=== PATIENT | female | born 1985 | race Caucasian/White ===

== ENCOUNTER 2022-10-20 07:26 | Outpatient (OUT) | payer OTHER, SELFPAY ==
--- NOTE | 2022-10-20 07:29 | XR_ITS ---
[facility] [place] [id number] Patient Name: LOUIS RIDER MRN: [id number] date: 1985 Sex: F Assigned Patient Location: [facility] Current Patient Location: [facility] Accession/Order Number: [id number] Exam Date: 10/20/2022 07:35 Report Date: 10/20/2022 07:54 At the request of: REBEL MURPHY Procedure: XR lumbar spine 2-3V EXAMINATION: XR lumbar spine 2-3V HISTORY: Lumbar Back Pain M54.50 COMPARISON: No relevant comparison available. FINDINGS: BONES: Normal alignment with no acute fracture or spondylolisthesis. Minimal degenerative spondylosis DISC SPACES: Normal. No significant disc height narrowing, subluxation, or endplate abnormality. PARASPINOUS: Negative. No paraspinous abnormality is seen. OTHER: Negative. XR/XR lumbar spine 2-3V IMPRESSION: Minimal degenerative changes Electronically authenticated by: DEVON KNIGHT Date: 10/20/2022 07:54
== END 2022-10-20 07:27 | disposition home or self-care (01) ==
LOC: RAD 07:26
PROVIDERS: PCP Nurse Practitioner; Visit Provider Nurse Practitioner
DX: M54.50 Low back pain, unspecified (principal); M47.816 Spondylosis without myelopathy or radiculopathy, lumbar region
CPT/HCPCS: 72100

== ENCOUNTER 2023-08-27 06:33 | Outpatient (OUT) | payer OTHER, SELFPAY ==
[2023-08-27 07:03] LABS: Bilirubin Urine NEGATIVE (NEGATIVE); Blood Urine LARGE (NEGATIVE); Clarity Urine CLEAR (CLEAR); Color Urine YELLOW (YELLOW); Glucose Urine UA NEGATIVE (NEGATIVE); Ketones Urine NEGATIVE (NEGATIVE); Leukocyte Esterase Urine NEGATIVE (NEGATIVE); Nitrite Urine NEGATIVE (NEGATIVE); Protein Urine NEGATIVE (NEG/TRACE); Urobilinogen Urine 0.2 EU/dL (0.2-1.0)
[2023-08-27 07:04] LABS: Basophils Absolute Auto 0.1 10^3/uL (0.0-0.1); Basophils Percent Auto 0.8 % (0.2-2.0); Eosinophils Absolute Auto 0.2 10^3/uL (0.0-0.7); Eosinophils Percent Auto 2.5 % (0.9-7.0); Hematocrit 41.4 % (36.0-48.0); Hemoglobin 13.5 g/dL (12.0-16.0); Immature Granulocytes Abs Auto 0.01 10^3/uL (0.00-0.03); Immature Granulocytes Pct Auto 0.2 % (0.0-0.5); Lymphocytes Absolute Auto 1.8 10^3/uL (1.2-3.8); Lymphocytes Percent Auto 27.7 % (20.5-60.0); Mean Corpuscular HGB Conc 32.6 g/dL (29.9-35.2); Mean Corpuscular Hemoglobin 30.8 pg (26.7-34.0); Mean Corpuscular Volume 94.3 fL (81.0-99.0); Mean Platelet Volume 8.8 fL (9.5-13.5); Monocytes Absolute Auto 0.6 10^3/uL (0.3-0.8); Monocytes Percent Auto 9.2 % (1.7-12.0); Neutrophils Absolute Auto 3.9 10^3/uL (1.4-6.5); Neutrophils Percent Auto 59.6 % (43.0-75.0); Platelet Count 347 10^3/uL (150-450); Red Blood Count 4.39 10^6/uL (4.20-5.40); Red Cell Distribution Width 12.4 % (11.0-15.0); White Blood Count 6.5 10^3/uL (4.0-11.0)
[2023-08-27 07:13] LABS: WBC Urine NONE SEEN #/HPF (NONE SEEN)
[2023-08-27 07:14] LABS: Bacteria Urine TRACE #/HPF (NONE SEEN); Cast Seen? NONE SEEN #/LPF (NONE SEEN); Crystals Seen? None Seen #/HPF (None Seen); Mucus Urine NONE SEEN (NONE SEEN); Squamous Epithelial Cell Urine FEW #/LPF (NONE/RARE)
[2023-08-27 07:26] LABS: Alanine Aminotransferase 17 U/L (14-59); Albumin Level 3.8 g/dL (3.4-5.0); Alkaline Phosphatase 70 U/L (46-116); Aspartate Amino Transferase 11 U/L (15-37); BUN Creatinine Ratio 16.3; Bilirubin Total 0.6 mg/dL (0.2-1.0); Calcium 8.5 mg/dL (8.5-10.1); Carbon Dioxide 25.6 mmol/L (21.0-32.0); Chloride 101 mmol/L (98-107); Chol HDL Ratio 3.1; Cholesterol 220 mg/dL (<=200); Estimated GFR (African America >60 (>=60); Estimated GFR (Non-African Ame >60 (>=60); Globulin 3.9 g/dL; Glucose 102 mg/dL (74-106); HDL Cholesterol 72 mg/dL (40-60); Potassium 3.6 mmol/L (3.5-5.1); Sodium 137 mmol/L (136-145); Thyroid Stimulating Hormone 1.537 uIU/mL (0.358-3.740); Total Protein 7.7 g/dL (6.4-8.2); Triglycerides 59 mg/dL (<=150); VLDL CHOLESTEROL 11.8 mg/dL
== END 2023-08-27 06:34 | disposition home or self-care (01) ==
LOC: LAB 06:35
PROVIDERS: PCP Nurse Practitioner; Visit Provider Nurse Practitioner
DX: Z78.9 Other specified health status (principal)
CPT/HCPCS: 36415; 80053; 80061; 81001; 84443; 85025

== ENCOUNTER 2023-09-13 06:39 | Outpatient (OUT) | payer OTHER, SELFPAY ==
[2023-09-13 06:59] LABS: Bilirubin Urine NEGATIVE (NEGATIVE); Blood Urine MODERATE (NEGATIVE); Clarity Urine CLEAR (CLEAR); Color Urine LT. YELLOW (YELLOW); Glucose Urine UA NEGATIVE (NEGATIVE); Ketones Urine NEGATIVE (NEGATIVE); Leukocyte Esterase Urine NEGATIVE (NEGATIVE); Nitrite Urine NEGATIVE (NEGATIVE); Protein Urine NEGATIVE (NEG/TRACE); Specific Gravity Urine 1.015 (1.005-1.025); Urobilinogen Urine 0.2 EU/dL (0.2-1.0)
[2023-09-13 07:23] LABS: Bacteria Urine MODERATE #/HPF (NONE SEEN); WBC Urine 0-2 #/HPF (NONE SEEN)
[2023-09-13 07:24] LABS: Mucus Urine SMALL (NONE SEEN); Squamous Epithelial Cell Urine FEW #/LPF (NONE/RARE); Urine Culture Indicated ALREADY ORDERED
== END 2023-09-13 06:40 | disposition home or self-care (01) ==
LOC: LAB 06:39
PROVIDERS: PCP Nurse Practitioner; Visit Provider Nurse Practitioner
DX: R31.29 Other microscopic hematuria (principal)
CPT/HCPCS: 81001; 87086; 87150; 87186

== ENCOUNTER 2023-10-04 06:33 | Outpatient (OUT) | payer OTHER, SELFPAY ==
[2023-10-04 06:43] LABS: Bilirubin Urine NEGATIVE (NEGATIVE); Blood Urine MODERATE (NEGATIVE); Clarity Urine CLEAR (CLEAR); Color Urine YELLOW (YELLOW); Glucose Urine UA NEGATIVE (NEGATIVE); Ketones Urine NEGATIVE (NEGATIVE); Leukocyte Esterase Urine NEGATIVE (NEGATIVE); Nitrite Urine NEGATIVE (NEGATIVE); Protein Urine NEGATIVE (NEG/TRACE); Specific Gravity Urine 1.025 (1.005-1.025); Urobilinogen Urine 0.2 EU/dL (0.2-1.0)
[2023-10-04 06:50] LABS: Urine Microscopic Indicated YES
[2023-10-04 06:55] LABS: Bacteria Urine TRACE #/HPF (NONE SEEN); Cast Seen? NONE SEEN #/LPF (NONE SEEN); Crystals Seen? None Seen #/HPF (None Seen); Mucus Urine TRACE (NONE SEEN); Squamous Epithelial Cell Urine FEW #/LPF (NONE/RARE); Urine Culture Indicated ALREADY ORDERED; WBC Urine 0-2 #/HPF (NONE SEEN)
== END 2023-10-04 06:34 | disposition home or self-care (01) ==
LOC: LAB 06:33
PROVIDERS: PCP Nurse Practitioner; Visit Provider Nurse Practitioner
DX: N30.00 Acute cystitis without hematuria (principal)
CPT/HCPCS: 81001; 87086; 87150; 87186

== ENCOUNTER 2023-10-21 08:10 | Outpatient (OUT) | payer OTHER, SELFPAY ==
--- OUTSIDE RECORDS SUMMARY | 2023-10-21 08:14 | XMS_ITS | CCD ---
Author Organization [facility] Care Team Providers Care Teaching Artist Name Role Phone DR NEFTALI WILSON Admitting Unavailable MARII, NUSRAT LUQUE Primary Care Unavailable DR NEFTALI WILSON Attending Unavailable Dana Wilson Unavailable Marii VICE PRESIDENT OF CONTRACTS, Keily Unavailable Landry Antoine MD Primary Care Provider KEILY COLVIN Attending Unavailable KEILY COLVIN Attending Unavailable DIANE PAGE Attending Unavailable KEILY COLVIN Referring Unavailable KEILY COLVIN Attending Unavailable Medications Current Medications Medication Drug Class(es) Dates Sig (Normalized) Sig (Original) amoxicillin 875 mg / clavulanate 125 mg oral tablet (2 sources) Penicillin-class Antibacterial Start: 05-09-2023 End: 05-19-2023 take 1 tablet by mouth in the morning amoxicillin-clav ulanate (Augmentin) 875-125 MG tablet Indications: URI, acute Take 1 tablet (875 mg) by mouth in the morning and 1 tablet (875 mg) before bedtime. Do all this for 10 days. Take with food. 20 tablet 0 05/09/2023 05/19/2023 Active benzonatate 200 mg oral capsule (2 sources) Non-narcotic Antitussive Start: 05-09-2023 End: 05-16-2023 take 1 capsule by mouth three times daily as needed for cough benzonatate (Tessalon) 200 MG capsule Indications: URI, acute Take 1 capsule (200 mg) by mouth 3 (three) times a day as needed for cough for up to 7 days Take with full glass of water. Do not crush or chew. 21 capsule 0 05/09/2023 05/16/2023 Active brompheniramine maleate 0.4 mg/ml / dextromethorphan hydrobromide 2 mg/ml / pseudoephedrine hydrochloride 6 mg/ml oral solution (1 source) alpha-Adrenergic Agonist, Uncompetitive W-khahxd-Y-aspartat e Receptor Antagonist, Sigma-1 Agonist Start: 03-09-2022 take 10 mL by mouth every six hours Pseudoeph-Bromph en-DM 30-2-10 MG/5ML 10 mL Orally every 6 hours for 5 days Feb, Active ondansetron 4 mg disintegrating oral tablet (1 source) Serotonin-3 Receptor Antagonist Start: 03-09-2022 take 1 tablet by mouth every eight hours Ondansetron 4 MG 1 tablet on the tongue and allow to dissolve Orally every 8 hours for 5 days Feb, Active Completed/Discontinued Medications Medication Drug Class(es) Dates Sig (Normalized) Sig (Original) naproxen 500 mg oral tablet (3 sources) Nonsteroidal Anti-inflammatory Drug Start: 10-21-2022 End: 05-09-2023 naproxen (Naprosyn) 500 MG tablet Take 250 mg by mouth in the morning and 250 mg in the evening. Take with meals. 0 10/21/2022 05/09/2023 Discontinued (Therapy completed) tamsulosin hydrochloride 0.4 mg oral capsule (3 sources) alpha-Adrenergic Trina Start: 05-06-2022 End: 05-09-2023 take 1 capsule by mouth every twenty-four hours in the morning tamsulosin (Flomax) 0.4 MG 24 hr capsule Take 0.4 mg by mouth in the morning. 0 05/06/2022 05/09/2023 Discontinued (Therapy completed) tiZANidine 4 mg oral tablet (3 sources) Central alpha-2 Adrenergic Agonist Start: 03-22-2023 End: 05-09-2023 take 1 tablet by mouth once tiZANidine (Zanaflex) 4 MG tablet Indications: Spasm of muscle of lower back Take 1 tablet (4 mg) by mouth every 12 (twelve) hours if needed for muscle spasms for up to 10 days 20 tablet 0 03/22/2023 05/09/2023 Discontinued (Therapy completed) Problems Active Problems Problem Classification Problem Date Documented Date Episodic/Chronic Abdominal pain (4 sources) Unspecified abdominal pain; Translations: [UNSPECIFIED ABDOMINAL PAIN] Onset: 05-05-2022 Episodic Immunizations and screening for infectious disease (2 sources) Contact with and (suspected) exposure to other viral communicable diseases; Translations: [Contact with and (suspected) exposure to other viral communicable diseases] Episodic Influenza (1 source) Influenza due to other identified influenza virus with other respiratory manifestations Episodic Malaise and fatigue (1 source) Fatigue; Translations: [Other fatigue] Episodic Menstrual disorders (1 source) Disorder of menstruation; Translations: [Irregular menstruation, unspecified] Chronic Other endocrine disorders (1 source) Decreased cortisol level; Translations: [Unspecified adrenocortical insufficiency] Chronic Other screening for suspected conditions (not mental disorders or infectious disease) (1 source) Measurement finding above reference range; Translations: [Other specified abnormal findings of blood chemistry] Episodic Other upper respiratory infections (4 sources) Acute upper respiratory infection; Translations: [Acute upper respiratory infection, unspecified] Onset: 05-09-2023 05-09-2023 Episodic Residual codes; unclassified (1 source) Procedure and treatment not carried out due to patient leaving prior to being seen by health care provider; Translations: [PROC AND TX NOT CARRIED OUT PT LEAVE] Onset: 05-06-2022 Episodic Past or Other Problems Problem Classification Problem Date Documented Da te Episodic/Chronic Genitourinary symptoms and ill-defined conditions (2 sources) Microscopic hematuria; Translations: [Other microscopic hematuria] Onset: 09-26-2018 05-09-2023 Episodic Results Test Name Value Interpretation Reference Range Facil ity COVID/FLU/RSV RT-PCRon 03-09 SARS-CoV-2 (COVID-19) RNA WILBER+probe Ql (Unsp spec) Negative [facility] [employer] Other COVID/FLU/RSV RT-PCR Positive [facility] Other COVID/FLU/RSV RT-PCR Negative [facility] [employer] Other Vital Signs Date Time Vital Sign Value Performing Clinician Facility 05-09-2023 16:11-0500 Body height 162.6 cm Keily Colvin VICE PRESIDENT OF CONTRACTS Work Phone: [facility] 05-09-2023 16:11-0500 Body mass index (BMI) [Ratio] 26.78 kg/m2 Keily Beardhholz VICE PRESIDENT OF CONTRACTS Work Phone: [facility] 05-09-2023 16:11-0500 Body temperature 98.01 [degF] Keily Lorieholz VICE PRESIDENT OF CONTRACTS Work Phone: [facility] 05-09-2023 16:11-0500 Body weight 70.76 kg Keilylyudmila Meloholz VICE PRESIDENT OF CONTRACTS Work Phone: [facility] 05-09-2023 16:11-0500 Diastolic blood pressure 78 mm[Hg] Keily Lorieholz VICE PRESIDENT OF [employer]S Work Phone: [facility] 05-09-2023 16:11-0500 Heart rate 85 /min Keily Lorieholz VICE PRESIDENT OF [employer]S Work Phone: [facility] 05-09-2023 16:11-0500 Respiratory rate 17 /min Keily Lorieholz VICE PRESIDENT OF CONTRACTS Work Phone: [facility] 05-09-2023 16:11-0500 SaO2% (BldA) [Mass fraction] 100 % Keily Lorieholz VICE PRESIDENT OF CONTRACTS Work Phone: [facility] 05-09-2023 16:11-0500 Systolic blood pressure 118 mm[Hg] Keily Lorieholz VICE PRESIDENT OF CONTRACTS Work Phone: [facility] 03-09-2022 15:55-0500 Body height 162.56 cm Dana [employer] Other [employer] Other 03-09-2022 15:55-0500 Body mass index (BMI) [Ratio] 25.57 kg/m2 Dana [employer] Other [employer] Other 03-09-2022 15:55-0500 Body temperature 97.6 [degF] Dana Wilson Other [employer] Other 03-09-2022 15:55-0500 Body weight 67.59 kg Dana Wilson Other [employer] Other 03-09-2022 15:55-0500 Respiratory rate 18 /min Dana Wilson Other [employer] Other 03-09-2022 15:55-0500 SaO2% (BldA) [Mass fraction] 97 % Dana Wilson Other [employer] Other Encounters Encounter Date Encounter Type Care Provider Facility Start: 08-17-2023 End: 08-17-2023 ambulatory KEILY AICHHOLZ Not Available Start: 07-26-2023 End: 07-26-2023 ambulatory DIANE PAGE Not Available Start: 06-16-2023 End: 06-16-2023 ambulatory KEILY AICHHOLZ Not Available Start: 05-09-2023 End: 05-09-2023 ambulatory KEILY AICHHOLZ Not Available Start: 05-09-2023 End: 05-09-2023 Office outpatient visit 15 minutes Keily Colvin VICE PRESIDENT OF [employer]S Work Phone: [facility] Comment on above: URI, acute (Primary Dx) Start: 05-09-2023 Bamboo flowsheet Keily Colvin VICE PRESIDENT OF CONTRACTS Work Phone: [facility] Start: 05-09-2023 Bamboo flowsheet Keily Colvin VICE PRESIDENT OF [employer]S Work Phone: [facility] Start: 05-05-2022 End: 05-05-[address] NEFTALI WILSON Facility: Start: 03-09-2022 End: 03-09-2022 ambulatory Dana Wilson Other [employer] Other Start: 03-09-2022 Office outpatient ne w 30 minutes Dana Wilson [facility] Procedures Date Procedure Procedure Detail Performing Clinician Start: 05-09-2023 Microscopic observat ion [Identifier] in Cervix by Cyto stain Keily Colvin VICE PRESIDENT OF CONTRACTS Work Phone: Plan of Treatment Date Care Activity Detail Author Start: 05-09-2026 Screening for malign ant neoplasm of cervix [facility] Start: 05-09-2023 End: 05-09-2023 Patient encounter procedure 05/09/2023 4:00 PM EST Office Visit [facility] [address] [place] [address] Keily Colvin NP [address] [place] [address] Arrived [facility] Comment on above: Arrived Start: 11-26-2022 Influenza vaccination Influenza Vacc ine (#1) [facility] Start: 10-29-2013 Screening for malign ant neoplasm of cervix [facility] Start: 10-29-2004 Screening for malign ant neoplasm of cervix Pap Smear [facility] Immunizations Immunization Date Immunization Notes Care Provider Fa cility 01-28-2015 influenza, seasonal, injectable Dana Wilson Other [employer] Other 01-28-2015 influenza virus vaccine, unspecified formulation Keily Colvin VICE PRESIDENT OF CONTRACTS Work Phone: [facility] NEGATED: Highlighted row has not occurred!06-04-2015 pneumococcal polysaccharide vaccine, 23 valent Dana Wilson Other [employer] Other Payers Date Payer Category Payer Medicaid [employer] [place] [employer] [id number] 2020-Present [address] [place] [address] [id number] 1985 Unknown [id number] 1985 Unknown [id number] 1985 Unknown [id number] 1985 Unknown [id number] 1985 Unknown [id number] 1961 Unknown [id number] Social History Date Type Detail Facility Start: 05-09-2023 Sex Assigned At N [facility] Other Tobacco smoking status [facility] Tobacco smoking consumption unknown [facility] Start: 1985 Sex Assigned At Not on file [facility] Start: 05-09-2023 Tobacco smoking status [facility] Never smoked tobacco [facility] Start: 05-09-2023 Tobacco use and exposure Smokeless tobacco non-user [facility] Start: 05-09-2023 Alcohol intake Lifetime non-d yaneth (finding) [facility] Start: 05-09-2023 History of Social function [facility] Start: 05-09-2023 Alcohol Comment caffine: 1 can of soda daily [facility] History of Present illness Narrative 05-09-2023 Keily Colvin NP - 05/09/2023 4:50 PM OSCAR GUERIN - 05/09/2023 4:00 PM Elisabeth Colvin NP - 05/09/2023 4:00 PM EST Note Date & Type Note Facility 05-09-2023 History of Presen t illness Narrative Associated Problem(s): URI, acute Will treat with atb, tessalon Fluids, rest Fu if not better Bad cough started Tuesday- coughing up yellow mucus Had temp of 99.9 on Tuesday. No body aches, chills, no vomiting or nausea, and no diarrhea. Pt did not test for covid or the flu Stated she had covid after ketan. Left shoulder blade - pt stated that it looks like ring worm No sore, not itchy Pt is treating it with ring worm medication and is not helping Images from the original note were not included. Louis Rider is a 37 y.o. female presents with chief complaint of No chief complaint on file. HPI: Rash to left shoulder blade area, hx of eczema, tried using eczema cream no help, no itchy, wonder if this was ring worm Cough This is a new problem. The current episode started in the past 7 days. The problem has been gradually worsening. The cough is Productive of purulent sputum. Associated symptoms include chest pain (from coughing), ear pain (left ear), a fever, nasal congestion and a rash. Pertinent negatives include no chills, ear congestion, eye redness, headaches, myalgias, sore throat, shortness of breath or wheezing. Nothing aggravates the symptoms. She has tried OTC cough suppressant for the symptoms. The treatment provided no relief. There is no history of environmental allergies. SUBJECTIVE: MEDICATIONS: No current outpatient medications ALLERGIES: No Known Allergies REVIEW OF SYMPTOMS: Review of Systems Constitutional: Positive for fever. Negative for appetite change and chills. HENT: Positive for ear pain (left ear). Negative for congestion and sore throat. Eyes: Negative for pain, discharge, redness and visual disturbance. Respiratory: Positive for cough. Negative for shortness of breath and wheezing. Cardiovascular: Positive for chest pain (from coughing). Negative for palpitations and leg swelling. Gastrointestinal: Negative for abdominal pain, blood in stool, constipation, diarrhea, nausea and vomiting. Genitourinary: Negative for difficulty urinating, dysuria and frequency. Musculoskeletal: Negative for arthralgias, back pain, joint swelling and myalgias. Skin: Positive for rash. Negative for wound. Neurological: Negative for dizziness, tremors, seizures, syncope and headaches. Psychiatric/Behavioral: Negative for behavioral problems, self-injury and suicidal ideas. The patient is not nervous/anxious. Hematological: Does not bruise/bleed easily. Endocrine: Negative for polydipsia, polyphagia and polyuria. Allergic/Immunologic: Negative for environmental allergies and food allergies. PAST MEDICAL HISTORY History reviewed. No pertinent past medical history. Past Surgical History: Procedure Laterality Date TONSILECTOMY, ADENOIDECTOMY, BILATERAL MYRINGOTOMY AND TUBES family history is not on file. OBJECTIVE: Visit Vitals BP 118/78 (BP Location: Right arm, Patient Position: Sitting, BP Cuff Size: Large adult long) Pulse 85 Temp 98 F (Temporal) Resp 17 Ht 5' 4 Wt 156 lb SpO2 100% BMI 26.78 kg/m Smoking Status Never BSA 1.79 m Physical Exam Vitals reviewed. Constitutional: General: She is not in acute distress. Appearance: Normal appearance. HENT: Head: Normocephalic and atraumatic. Right Ear: Tympanic membrane, ear canal and external ear normal. Left Ear: Tympanic membrane, ear canal and external ear normal. Nose: Nose normal. Comments: Mild maxillary sinus tenderness Mouth/Throat: Mouth: Mucous membranes are moist. Eyes: Extraocular Movements: Extraocular movements intact. Conjunctiva/sclera: Conjunctivae normal. Cardiovascular: Rate and Rhythm: Normal rate and regular rhythm. Pulses: Normal pulses. Heart sounds: Normal heart sounds. Pulmonary: Effort: Pulmonary effort is normal. Breath sounds: Normal breath sounds. Comments: Harsh cough, no wheeze noted Abdominal: General: Bowel sounds are normal. There is no distension. Palpations: Abdomen is soft. There is no mass. Tenderness: There is no abdominal tenderness. Musculoskeletal: General: Normal range of motion. Cervical back: Neck supple. Lymphadenopathy: Cervical: No cervical adenopathy. Skin: General: Skin is warm and dry. Capillary Refill: Capillary refill takes 2 to 3 seconds. Findings: No rash. Neurological: General: No focal deficit present. Mental Status: She is alert and oriented to person, place, and time. Psychiatric: Mood and Affect: Mood normal. Behavior: Behavior normal. Thought Content: Thought content normal. Judgment: Judgment normal. ASSESSMENT AND PLAN: No follow-ups on file. Problem List Items Addressed This Visit URI, acute - Primary Will treat with atb, tessalon Fluids, rest Fu if not better Relevant Medications benzonatate (Tessalon) 200 MG capsule amoxicillin-clavulanate (Augmentin) 875-125 MG tablet documented in this encounter [facility] Evaluation note 03-09-2022 Note Date & Type Note Facility 03-09-2022 Evaluation note Encounter Date Diagnosis Assessment Notes Feb, Contact with and (suspected) exposure to other viral communicable diseases (ICD-10 - Z20.828) Feb, Influenza A (ICD-10 - J10.1) Advised patient that Influenza A PCR test was positive, Influenza B/COVID/RSV PCR was negative. Encouraged supportive care, Bromfed as directed, Zofran as needed, Tylenol/Motrin as needed for body aches/fever. Increase fluids and rest. Encouraged use of cool mist humidifier. Advised to stay home until fever free for 24 hours without the use of antipyretics. Follow-up with PCP for further management if needed. Immediate eval for SOB, difficulty, chest pain, fevers that do not break with antipyretic or any other concerning symptoms as reviewed on patient education handout. Patient verbalizes understanding and is agreeable to treatment plan. Patient left in stable condition [facility] Other Evaluation note Note Date & Type Note Facility Evaluation note Diagnosis URI, acute- Primary Acute upper respiratory infections of unspecified site documented in this encounter [facility] History general Narrative - Reported Note Date & Type Note Facility History general Narrative - Reported Type Medical History Back Pain Medical History Eczema Surgical History wisdom teeth Surgical History tonsillectomy Surgical History septoplasty with turbinate redu ction [employer] Other Summary Purpose Family History No Family History Records FoundNo Family History Records Found Advance Directives No Advanced Directives Records FoundNo Advanced Directives Records Found Additional Source Comments INFORMATION SOURCE (unrecogn ized section and content) DATE CREATED AUTHOR 05/06/2022 [facility] DATE CREATED AUTHOR AUTHOR'S ORGANIZ ATION 08/19/2023 [facility] EPIC REASON FOR VISIT (unrecogniz ed section and content) COUGH CONGESTION B/A Care Teams (unrecognized sec tion and content) Teaching Artist Relationship Specialty Start Date End Date Landry Antoine MD [address] [place] [address] PCP - General Family Medicine 05/09/23 Keily Colvin NP [address] [place] [id number] Referring Physician Nurse Practitioner 10/18/22 Teaching Artist Relationship Specialty Start Date End Date Landry Antoine MD [address] [place] [address] PCP - General Family Medicine 05/09/23 Keily Colvin NP [address] [place] [address] Referring Physician Nurse Practitioner 10/18/22 FOR RECORDS PERTAINING TO PATIENTS WHO ARE OR HAVE BEEN ENROLLED IN A CHEMICAL DEPENDENCY/SUBSTANCEABUSE PROGRAM, SOME INFORMATION MAY BE OMITTED. This clinical summary was aggregated from multiple sources. Caution should be exercised in using it in the provision of clinical care. This summary normalizes information from multiple sources, and as a consequence, information in this document may materially change the coding, format and clinical context of patient data. In addition, data may be omitted in some cases. CLINICAL DECISIONS SHOULD BE BASED ON THE PRIMARY CLINICAL RECORDS. [employer] provides no warranty or guarantee of the accuracy or completeness of information in this document.
--- NOTE | 2023-10-21 08:23 | CT_ITS ---
[address] [address] Patient Name: LOUIS RIDER MRN: [id number] date: 1985 Sex: F Assigned Patient Location: CT Current Patient Location: Accession/Order Number: [id number] Exam Date: 10/21/2023 09:30 Report Date: 10/24/2023 09:34 At the request of: REBEL MURPHY Procedure: CT abdomen pelvis wo/w con EXAMINATION: CT abdomen pelvis wo/w con HISTORY: Hematuria Microscopic R31.29 COMPARISON: No relevant comparison available. TECHNIQUE: Axial, Coronal, and Sagittal images were obtained without and/or with IV contrast as indicated by examination type. Dose reduction techniques were achieved by using automated exposure control and/or adjustment of mA and/or kV according to patient size and/or use of iterative reconstruction technique. FINDINGS: LUNG BASES: No visible pulmonary or pleural disease. LIVER: No enlargement, atrophy, suspicious density, or significant focal lesion. BILIARY: No dilatation or calcification. PANCREAS: No lesion, fluid collection, or abnormal duct dilatation. SPLEEN: No enlargement or focal lesion. ADRENALS: No mass or enlargement. KIDNEYS: Several tiny 1 mm stones within the kidneys. No ureteral stones or obstruction. BOWEL/MESENTERY: No visible mass, obstruction, or bowel wall thickening. AORTA/VASCULAR: No aneurysm or dissection. RETROPERITONEUM: No mass or adenopathy. LYMPH NODES: No adenopathy. URINARY BLADDER: No visible focal wall thickening, lesion, or calculus. PELVIC ORGANS: No visible mass. Pelvic organs appropriate for patient age. ABDOMINAL WALL: No mass or hernia. BONES: No bony lesion or fracture. OTHER: Negative. CT/CT abdomen pelvis wo/w con IMPRESSION: 1. Bilateral nonobstructing nephrolithiasis which may contribute to patient's symptoms. 2. No urinary tract mass, inflammatory changes, or obstructive uropathy. Electronically authenticated by: MILES VALLES Date: 10/24/2023 09:34
== END 2023-10-21 08:11 | disposition home or self-care (01) ==
LOC: CT 08:11
PROVIDERS: PCP Nurse Practitioner; Visit Provider Nurse Practitioner
DX: R31.29 Other microscopic hematuria (principal); N20.0 Calculus of kidney
CPT/HCPCS: 74178; Q9967

== ENCOUNTER 2023-11-07 07:34 | Outpatient (OUT) | payer OTHER, SELFPAY ==
--- NOTE | 2023-11-07 07:37 | MM_ITS ---
Patient Name: LOUIS RIDER MR#: [id number] : 1985 Exam Date: 11/07/2023 Ordering Doctor: NUSRAT Colvin CNP RADIOLOGY REPORT PROCEDURE: MM TOMOSYNTHESIS SCREENING BI COMPARISON: None. INDICATIONS: Screening Calculator Name NCI Breast Cancer Risk Assessment Tool 5 Year Breast Cancer Risk 0.60% Lifetime Breast Cancer Risk 10.20% Personal Breast Cancer No Personal Ovarian Cancer No Treatments None Family Cancers Aunt-maternal with breast cancer at age 66; Grandmother-maternal with colon cancer at age ~45; Grandfather-maternal with prostate cancer at age ~45. LOCATION: [facility] BREAST COMPOSITION: The breasts are heterogeneously dense,which may obscure small masses. FINDINGS: DIAGNOSTIC CATEGORY 2--BENIGN FINDING: The left breast is asymmetrically small. Nodular dense parenchymal pattern does limit diagnostic sensitivity. RIGHT BREAST: No significant suspicious finding. LEFT BREAST: No significant suspicious finding. RECOMMENDATIONS: ROUTINE MAMMOGRAM AND CLINICAL EVALUATION IN 12 MONTHS. PLEASE NOTE: A NORMAL MAMMOGRAM DOES NOT EXCLUDE THE POSSIBILITY OF BREAST CANCER. A CLINICALLY SUSPICIOUS PALPABLE LUMP SHOULD BE BIOPSIED. Dictated by: Mina Croft MD on 11/07/2023 at 12:00 Approved by: Mina Croft MD on 11/07/2023 at 12:01
== END 2023-11-07 07:35 | disposition home or self-care (01) ==
LOC: MAMMO 07:34
PROVIDERS: PCP Nurse Practitioner; Visit Provider Nurse Practitioner
DX: Z12.31 Encounter for screening mammogram for malignant neoplasm of breast (principal); Z80.3 Family history of malignant neoplasm of breast; Z80.0 Family history of malignant neoplasm of digestive organs; Z80.42 Family history of malignant neoplasm of prostate
CPT/HCPCS: 77063; 77067

== ENCOUNTER 2024-08-24 08:43 | Outpatient (OUT) | payer OTHER, SELFPAY ==
--- OUTSIDE RECORDS SUMMARY | 2024-08-23 09:25 | XMS_ITS | Encounter Summary ---
Author Organization [facility] Address [address] [place] [address] Care Team Providers Care Review Manager Name Role Phone Keily Colvin QUEEN PRODUCER Unavailable [phone] Landry Antoine MD Primary Care Provider [phone] Keily Colvin QUEEN PRODUCER Unavailable [phone] Reason for Visit * Reason Comments Skin Check Encounter Details Date Type Department Care Team (Late st Contact Info) Description 08/23/2024 9:25 AM EDT Office Visit [facility] [address] [facility] [address] [place] [address] Ethel Corona APRN-CLAY PIGEON LOADER [address] [facility] [address] [place] [address] Melanocytic nevus of trunk; Lentigines; Callus of foot; Other atopic dermatitis Social History Tobacco Use Types Packs/Day Years Used Date Smoking Tobacco: Never Smokeless Tobacco: Never Alcohol Use Standard Drinks/Week Comments Never 0 (1 standard drink = 0.6 oz pur e alcohol) caffine: 1 can of soda daily PHQ-2 Answer Date Recorded Patient Health Questionnaire-2 Score 0 06/16/2023 Comments Unknown Sex and Gender Information Value Date Recorded Sex Assigned at Not on file Legal Sex Female 7:05 PM EDT Gender Identity Not on file Sexual Orientation Not on file documented as of this encounter Progress Notes * MARCIA Min - 08/23/2024 9:25 AM EDT Skin Check Location: Patient requests a full body skin examination Dermatologic history: no history of skin cancer, no history of atypical moles, no family history ofmelanoma Last visit: 1 year ago Lesions: Location: Right foot Duration: 6 months Quality: denies pain Associated symptoms: hard bump Treatments: none Other Problem: Eczema Location: arms Duration: years Treatments tried/failed: hydrocortisone cream Current treatment: Uses Olay soap All pertinent medical history, medications, and allergies were reviewed. General Exam: alert, oriented to person, place, and time, normal affect, well appearing Unaccompanied Areas not examined despite medical recommendation: Scalp, Examined , exam limited by hair Right leg Examined Head, Face Examined Left leg Examined Neck Examined Right foot Examined Chest Examined Left foot Examined Back Examined Buttocks Examined Abdomen Examined Digits,nails: Examined Right arm Examined Left arm Examined Lymphatics: Not examined Hands Examined Skin Exam 1. MELANOCYTIC NEVUS OF TRUNK Generalized Scattered benign appearing, regular brown to light brown melanocytic papules and macules with similar morphology Counseled regarding these benign growths. Rarely, a nevus can develop into malignant melanoma, so any changing nevi should be promptly re-evaluated. 2. LENTIGINES (3) Face, Left Shoulder - Posterior, Right Shoulder - Posterior Scattered gallagher macules in sun-exposed areas. The patient was informed that lentigines are benign pigmented lesions that occur on sun-exposed andsun-damaged skin. No treatment is necessary. Recommended regular use of broad spectrum sunscreen SPF 30 or higher 3. CALLUS OF FOOT Right 5th Metatarsal Plantar Area Hyperkeratotic papule overlying bony prominence Discussed wearing proper fitting shoes. May file down or use OTC corn pads for symptomatic relief. Recommend eval with podiatry if symptoms persist or worsen. 4. OTHER ATOPIC DERMATITIS Left Forearm - Anterior, Right Forearm - Anterior History of scaly erythematous plaques Discussed that atopic dermatitis is a chronic condition that can be controlled but not cured. StartTAC 0.1% bid prn when flared, hold if smooth/asymptomatic. Encouraged daily moisturizing and gentlecleansers to prevent flares. Notify office if flaring despite treatment. Related Medications triamcinolone (Kenalog) 0.1 % cream Apply to eczema on arms BID when flared, hold when clear/30 days. Do not use on the face, neck, armpits or groin Next Visit: 1 year documented in this encounter Plan of Treatment Upcoming Encounters Date Type Department Care Team (Late st Contact Info) Description 09/19/2024 9:00 AM EDT Office Visit [facility] [address] [place] [address] Keily Colvin NP [address] [place] [address] 11/01/2024 10:00 AM EDT Office Visit [facility] [address] [place] [address] Keily Colvin NP [address] [place] [address] 08/22/2025 8:55 AM EDT Office Visit [facility] [address] [place] [address] Ethel Corona APRN-CLAY PIGEON LOADER [address] [place] [address] documented as of this encounter Visit Diagnoses Diagnosis Melanocytic nevus of trunk Benign neoplasm of skin of trunk, except scrotum Lentigines Callus of foot Corns and callosities Other atopic dermatitis documented in this encounter Care Teams Review Manager Relationship Specialty Start Date End Date Landry Antoine MD [address] [place] [address] PCP - General Family Medicine 05/09/23 Keily Colvin NP [address] [place] [address] PCP - [facility] 09/26/23 Keily Colvin NP Referring Physician Nurse Practitioner 10/18/22 documented as of this encounter
--- OUTSIDE RECORDS SUMMARY | 2024-08-24 08:45 | XMS_ITS | Encounter Summary ---
Author Organization [facility] Address [address] [place] [address] Care Team Providers Care Dials Inspector Name Role Phone Keily Colvin PROGRAMS DIRECTOR Unavailable [phone] Landry Antoine MD Primary Care Provider [phone] Keily Colvin PROGRAMS DIRECTOR Unavailable [phone] Encounter Details Date Type Department Care Team (Late Contact Info) Description 08/23/2024 Bamboo flowsheet [facility] [address] [facility] [address] [place] [address] Ethel Corona, AUTOMOBILE CARPETS MOLDER-WEALTH MANAGEMENT DIRECTOR [address] [facility] [address] [place] [address] Social History Tobacco Use Types Packs/Day Years [...] on file documented as of this encounter Plan of Treatment Upcoming Encounters Date Type Department Care Team (Late Contact Info) Description 09/19/2024 9:00 AM EDT Office Visit [facility] [address] [place] [address] Keily Colvin NP [address] [place] [address] 11/01/2024 10:00 AM EDT Office Visit [facility] [address] [place] [address] Keily Colvin NP [address] [place] [address] 08/22/2025 8:55 AM EDT Office Visit [facility] [address] [place] [address] Ethel Corona APRN-WEALTH MANAGEMENT DIRECTOR [address] [place], [place] [id number] documented as of this encounter Visit Diagnoses Not on filedocumented in this encounter Care Teams Dials Inspector Relationship Specialty Start Date End Date Landry Antoine MD [address] [place] [address] PCP - General Family Medicine 05/09/23 Keily Colvin NP [address] [place] [address] PCP - [facility] 09/26/23 Keily Colvin NP Referring Physician Nurse Practitioner 10/18/22 documented as of this encounter
--- OUTSIDE RECORDS SUMMARY | 2024-08-24 08:45 | XMS_ITS | Clinical Summary ---
Author Organization [facility] Address [address] [place] [address] Care Team Providers Care Family Support Coordinator Name Role Phone Keily Colvin FACILITY MAINTENANCE MANAGER Unavailable [phone] Landry Antoine MD Primary Care Provider [phone] Keily Colvin FACILITY MAINTENANCE MANAGER Unavailable [phone] Allergies No known active allergies Medications triamcinolone (Kenalog) 0.1 % creamIndication s:Other atopic dermatitis Apply to eczema on arms BID when flared, hold when clear/30 days. 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 04/16/2024 Assessment & Plan (04/16/2024 11:11 AM EST): Uncertain etiology of palpable abnormality, no s/s infection or ulceration We will refer to Safety Sitter for evaluation of this This does not appear to represent an obvious malignancy of which I did share with the pt Eczema 04/16/2024 Assessment & Plan (04/16/2024 11:11 AM EST): Warm, not hot bath May use OTC cortisone cream as directed Fu if not better Encounter for screening mamm ogram for malignant neoplasm of breast 10/31/2023 Encounter for wellness examination in adult 07/2023 Assessment & Plan (10/31/2023 8:55 AM EDT): Reviewed Ht/Wt/BMI Recommend eye exam yearly Recommend dental exams twice a year Balance work/leisure activities Exercises is recommended most days of the week (appropriate as chronic conditions allow) Follow up yearly and prn Nephrolithiasis 10/25/2023 Assessment & Plan (10/31/2023 8:44 AM EDT): Will see urology Participant in health and wellness plan 08/17/19 24 Lumbar back sprain 08/17/2023 Assessment & Plan (08/17/2023 9:41 AM EDT): Will refill her tizanidine, discussed pt for core strengthening, she declines I did provide a hand out for back stretching exercises to reduce risk of exacerbations in the future Skin cancer screening 06/16/2023 Hematuria, microscopic 09/26/2018 Overview (05/09/2023): 09/26/18: Micro hematuria. Low risk. Plan renal ultrasound, cysto. The risks and benefits as outlined in the consent were discussed. All relevant drawings were reviewed. All questions were answered. The patient expressed understanding and wished to proceed. She does not believe she can tolerate this awake. Plan mac 10/31/18: Normal renal ultrasound. Negative cysto. Assessment & Plan (10/31/2023 8:44 AM EDT): Will see urology Resolved Problems Problem Noted Date Diagnosed Date Resolved Date Dyspepsia 10/31/2023 04/16/2024 Overview (10/31/2023): Trial OTC omeprazole since her pepcid is not working After 7 days if not better contact office UTI (urinary tract infection) 10/06/2023 10/06/2023 Acute cystitis 08/17/2023 04/16/2024 Bronchitis 06/16/2023 08/17/2023 Assessment & Plan (06/16/2023 4:29 PM EDT): Symptoms of URI resolved with augmentin about 6 weeks ago, and now have been back for the last 3 weeks, OTC meds not helping coughing brown mucus day and night, no wheeze Will treat with cefdinir, fu if not better Fluids, as well as OTC Mucinex D URI, acute 05/09/2023 06/16/2023 Assessment & Plan (05/09/2023 4:50 PM EST): Will treat with atb, tessalon Fluids, rest Fu if not better Encounters Date Type Department Care Team Description 08/23/2024 9:25 AM EDT Office Visit [facility] [address] [place] [address] Ethel Corona, COMPUTING CONSULTANT-MIDDLEWARE CONSULTANT Melanocytic nevus of trunk; Lentigines; Callus of foot; Other atopic dermatitis 08/23/2024 Bamboo flowsheet [facility] [address] [place] [address] Ethel Corona APRN-MIDDLEWARE CONSULTANT 08/23/2024 Travel 08/08/2024 2:00 PM EDT Office Visit [facility] [address] [place] [address] Keily Colvin NP Pain of upper abdomen (Primary Dx) 08/08/2024 Bamboo flowsheet [facility] [address] [place] [address] Keily Colvin NP from Last 3 Months Immunizations Immunization Administration Dates Next Due Influenza, seasonal, injectable 01/28/2015 Social History Tobacco Use Types Packs/Day Years Used Date Smoking Tobacco: Never Smokeless Tobacco: Never Tobacco Cessation:Counseling Given: Not Answered Alcohol Use Standard Drinks/Week Comments Never 0 (1 standard drink = 0.6 oz pur e alcohol) caffine: 1 can of soda daily PHQ-2 Answer Date Recorded Patient Health Questionnaire-2 Score 0 06/16/2023 Comments Unknown Sex and Gender Information Value Date Recorded Sex Assigned at Not on file Legal Sex Female 7:05 PM EDT Gender Identity Not on file Sexual Orientation Not on file Last Filed Vital Signs Vital Sign Reading Time Taken Comments Blood Pressure 118/82 08/08/2024 2:01 PM EDT Pulse 78 08/08/2024 2:01 PM EDT Temperature 37.2 C (99 F) 08/08/2024 2:01 PM EDT Respiratory Rate 18 08/08/2024 2:01 PM EDT Oxygen Saturation 98% 08/08/2024 2:01 PM EDT Inhaled Oxygen Concentration - - Weight 75 kg (165 lb 6.4 oz) 08/08/2024 2:01 PM EDT Height 162.6 cm (5' 4 ) 10/31/2023 8:35 AM EDT Body Mass Index 28.39 10/31/2023 8:35 AM EDT Plan of Treatment Upcoming Encounters Date Type Department Care Team (Late st Contact Info) Description 09/19/2024 9:00 AM EDT Office Visit [facility] [address] [place] [address] Keily Colvin, JAIMEE [address] [place] [address] 11/01/2024 10:00 AM EDT Office Visit [facility] [address] [place] [address] Keily Colvin, JAIMEE [address] [place] [address] 08/22/2025 8:55 AM EDT Office Visit [facility] [address] [place] [address] Ethel Corona APRN-NUSRAT [address] [place] [address] Health Maintenance Due Date Last Done Comments HPV/Cotest 10/29/2013 Mammogram 11/06/2024 11/07/2023 Cervical Cancer Screening 05/09/2026 Pap Smear 05/09/2026 05/09/2023 (Patient Refused) Influenza Vaccine Discontinued 01/28/2015 Procedures Procedure Name Priority Date/Time Associated Diagnosis Comments MM TOMOSYNTHESIS SCREENING BI 11/07/2023 12:01 PM EDT from Last 3 Months or Most Recently Relevant to Health Maintenance Results * MM TOMOSYNTHESIS SCREENING BI (11/07/2023 12:01 PM EDT) Anatomical Region Laterality Modality Other 11/07/2023 12:0 1 PM EDT Narrative 11/07/2023 12:02 PM EDT The [address] [address] Mammography Report Signed Patient: LOUIS STEVEN MR#: [id number] : 1985 Acct:[id number] Age/Sex: 38 / F ADM Date: 11/07/23 Loc: MAMMO Attending Dr: Keily Colvin NP Ordering Physician: Keily Colvin NP Results: Date of Service: 11/07/23 Follow Up: Procedure(s): MM tomosynthesis screening BI Accession Number(s): [id number] cc: Keily Colvin NP Patient Name: LOUIS STEVEN MR#: [id number] : 1985 Exam Date: 11/07/2023 Ordering Doctor: NUSRAT Colvin CNP RADIOLOGY REPORT PROCEDURE: MM TOMOSYNTHESIS SCREENING BI COMPARISON: None. INDICATIONS: Screening Calculator Name NCI Breast Cancer Risk Assessment Tool 5 Year Breast Cancer Risk 0.60% Lifetime Breast Cancer Risk 10.20% Personal Breast Cancer No Personal Ovarian Cancer No Treatments None Family Cancers Aunt-maternal with breast cancer at age 66; Grandmother-maternal with colon cancer at age 45; Grandfather-maternal with prostate cancer at age 45. LOCATION: The [facility] BREAST COMPOSITION: The breasts are heterogeneously dense,which may obscure small masses. FINDINGS: DIAGNOSTIC CATEGORY 2--BENIGN FINDING: The left breast is asymmetrically small. Nodular dense parenchymal pattern does limit diagnostic sensitivity. RIGHT BREAST: No significant suspicious finding. LEFT BREAST: No significant suspicious finding. RECOMMENDATIONS: ROUTINE MAMMOGRAM AND CLINICAL EVALUATION IN 12 MONTHS. PLEASE NOTE: A NORMAL MAMMOGRAM DOES NOT EXCLUDE THE POSSIBILITY OF BREAST CANCER. A CLINICALLY SUSPICIOUS PALPABLE LUMP SHOULD BE BIOPSIED. Dictated by: Mina Croft MD on 11/07/2023 at 12:00 Approved by: Mina Croft MD on 11/07/2023 at 12:01 Dictated By: Mina Croft M.D. Signed By: 11/07/23 1202 DD/ 1201 TD/TT: Tire Builder Operator: Procedure Note Radiology, Radiologist, MD - 11/07/2023 [place] [address] Mammography Report Signed Patient: LOUIS STEVEN LMR#: [id number] : 1985Acct:[id number] Age/Sex: 38 / FADM Date: 11/07/23 Loc: MAMMO Attending Dr: Keliy Colvin NP Ordering Physician: Keily Colvin NPResults: Date of Service: 11/07/23Follow Up: Procedure(s): MM tomosynthesis screening BI Accession Number(s): [id number] cc: Keily Colvin NP Patient Name: LOUIS STEVEN MR#: [id number] : 1985 Exam Date: 11/07/2023 Ordering Doctor: NUSRAT Colvin CNP RADIOLOGY REPORT PROCEDURE: MM TOMOSYNTHESIS SCREENING BI COMPARISON: None. INDICATIONS: Screening Calculator Name NCI Breast Cancer Risk Assessment Tool 5 Year Breast Cancer Risk 0.60% Lifetime Breast Cancer Risk 10.20% Personal Breast Cancer No Personal Ovarian Cancer No Treatments None Family Cancers Aunt-maternal with breast cancer at age 66; Grandmother-maternal with colon cancer at age 45; Grandfather-maternalwith prostate cancer at age 45. LOCATION: The [facility] BREAST COMPOSITION: The breasts are heterogeneously dense,which may obscure small masses. FINDINGS: DIAGNOSTIC CATEGORY 2--BENIGN FINDING: The left breast is asymmetrically small. Nodular dense parenchymalpattern does limit diagnostic sensitivity. RIGHT BREAST: No significant suspicious finding. LEFT BREAST: No significant suspicious finding. RECOMMENDATIONS: ROUTINE MAMMOGRAM AND CLINICAL EVALUATION IN 12 MONTHS. PLEASE NOTE: A NORMAL MAMMOGRAM DOES NOT EXCLUDE THE POSSIBILITY OFBREAST CANCER. A CLINICALLY SUSPICIOUS PALPABLE LUMP SHOULD BE BIOPSIED. Dictated by: Mina Croft MD on 11/07/2023 at 12:00 Approved by: Mina Croft MD on 11/07/2023 at 12:01 Dictated By: Mina Croft M.D. Signed By:11/07/23 1202 DD/ 1201 TD/TT: Tire Builder Operator: Keily Colvin NP [facility] Final Result from Last 3 Months or Most Recently Relevant to Health Maintenance Insurance [employer] Care Teams Family Support Coordinator Relationship Specialty Start Date End Date Landry Antoine MD [address] [place] [address] PCP - General Family Medicine 05/09/23 Keily Colvin NP [address] [place] [address] [facility] 09/26/23 Keily Colvin NP Referring Physician Nurse Practitioner 10/18/22
--- OUTSIDE RECORDS SUMMARY | 2024-08-24 08:45 | XMS_ITS | Encounter Summary ---
Author Organization [facility] Address [address] [place] [address] Care Team Providers Care Rewinder Name Role Phone Keily Colvin PIN GAME MACHINE INSPECTOR Unavailable [phone] Landry Antoine MD Primary Care Provider [phone] Keily Colvin PIN GAME MACHINE INSPECTOR Unavailable [phone] Encounter Details Date Type Department Care Team (Late st Contact Info) Description 11/07/2023 Clinisync Result Encounter [facility] External Department Unsolicited Keily Colvin NP [address] [place] [address] Social History Tobacco Use Types Packs/Day Years [...] Visit [facility] [address] [place] [address] Keily Colvin NP [address] [place] [address] 11/01/2024 10:00 AM EDT Office Visit [facility] [address] [place] [address] Keily Colvin NP [address] [place] [address] 08/22/2025 8:55 AM EDT Office Visit [facility] [address] [place] [address] Ethel Corona RUBBER AND POUNDER-ELECTROPLATER [address] [place] [address] documented as of this encounter Procedures Procedure Name Priority Date/Time Associated Diagnosis Comments MM TOMOSYNTHESIS SCREENING BI 11/07/2023 12:01 PM EDT documented in this encounter Results * MM TOMOSYNTHESIS SCREENING BI (11/07/2023 12:01 PM EDT) Anatomical Region Laterality Modality Other 11/07/2023 12:0 1 PM EDT Narrative 11/07/2023 12:02 PM EDT The [place] [id number] Mammography Report Signed Patient: LOUIS STEVEN MR#: [id number] : 1985 Acct:[id number] Age/Sex: 38 / F ADM Date: 11/07/23 Loc: MAMMO Attending Dr: Keily Colvin NP Ordering Physician: Keily Colvin NP Results: Date of Service: 11/07/23 Follow Up: Procedure(s): MM tomosynthesis screening BI Accession Number(s): [id number] cc: Keily Colvin NP Patient Name: LOUIS STEVEN MR#: [id number] : 1985 Exam Date: 11/07/2023 Ordering Doctor: [...] prostate cancer at age 43. LOCATION: The [facility] BREAST COMPOSITION: The breasts are heterogeneously [...] Signed By: 11/07/23 1202 DD/ 1201 TD/TT: Chief Crew Scheduler: Procedure Note Radiology, RadiologistMD - 11/07/2023 [place] [address] Mammography Report Signed Patient: LOUIS STEVEN LMR#: [id number] : 1985Acct:[id number] Age/Sex: 38 / FADM Date: 11/07/23 Loc: MAMMO Attending Dr: Keily Colvin NP Ordering Physician: Keily Colvin NPResults: Date of Service: 11/07/23Follow Up: Procedure(s): MM tomosynthesis screening BI Accession Number(s): [id number] cc: Keily Colvin NP Patient Name: LOUIS STEVEN MR#: [id number] : 1985 Exam Date: 11/07/2023 Ordering Doctor: [...] prostate cancer at age 43. LOCATION: The [facility] BREAST COMPOSITION: The breasts are heterogeneously [...] M.D. Signed By:11/07/23 1202 DD/ 1201 TD/TT: Chief Crew Scheduler: Keily Colvin NP [facility] Final Result documented in this encounter Visit Diagnoses Not on filedocumented in this encounter Care Teams Rewinder Relationship Specialty Start Date End Date Landry Antoine MD [address] [place] [address] PCP - General Family Medicine 05/09/23 Keily Colvin NP [address] [place] [address] PCP - [facility] 09/26/23 Keily Colvin NP Referring Physician Nurse Practitioner 10/18/22 documented as of this encounter
--- OUTSIDE RECORDS SUMMARY | 2024-08-24 08:45 | XMS_ITS | Encounter Summary ---
Author Organization [facility] Address [address] [place] [address] Care Team Providers Care Mission Analyst Name Role Phone Keily Colvin FLOOR ASSOCIATE Unavailable [phone] Landry Antoine MD Primary Care Provider [phone] Keily Colvin FLOOR ASSOCIATE Unavailable [phone] Encounter Details Date Type Department Care Team (Late st Contact Info) Description 10/24/2023 Clinisync Result Encounter [facility] External Department Unsolicited Keily Colvin NP [address] [place] [phone] Social History Tobacco Use Types Packs/Day Years [...] Visit [facility] [address] [place] [address] Keily Colvin NP [address] [place] [address] 11/01/2024 10:00 AM EDT Office Visit [facility] [address] [place] [address] Keily Colvin NP [address] [place] [address] 08/22/2025 8:55 AM EDT Office Visit [facility] [address] [place] [address] Ethel Corona, ORTHODONTIC LAB TECHNICIAN-DIRECTOR AGRICULTURAL SERVICES [address] [place] [address] documented as of this encounter Procedures Procedure Name Priority Date/Time Associated Diagnosis Comments CT ABDOMEN PELVIS WO/W CON 10/24/2023 9:34 AM EDT documented in this encounter Results * CT ABDOMEN PELVIS WO/W CON (10/24/2023 9:34 AM EDT) Anatomical Region Laterality Modality Other 10/24/2023 9:34 AM EDT Narrative 10/24/2023 9:37 AM EDT [address] [address] [address] Scan Report Signed Patient: LOUIS STEVEN MR#: [id number] : 1985 Acct:[id number] Age/Sex: 37 / F ADM Date: 10/21/23 Loc: CT Attending Dr: Keily Colvin NP Ordering Physician: Keily Colvin NP Date of Service: 10/21/23 Procedure(s): CT abdomen pelvis wo/w con Accession Number(s): [id number] cc: Keily Colvin NP [address] [address] Patient Name: LOUIS STEVEN MRN: [id number] date: 1985 Sex: F Assigned Patient Location: CT Current Patient Location: Accession/Order Number: [id number] Exam Date: 10/21/2023 09:30 Report Date: 10/24/2023 09:34 At the request of: KEILYNadine COLVIN Procedure: CT abdomen pelvis wo/w con EXAMINATION: CT abdomen pelvis wo/w con HISTORY: Hematuria Microscopic R31.29 COMPARISON: No relevant comparison available. TECHNIQUE: Axial, Coronal, and Sagittal images were obtained without and/or with IV contrast as indicated by examination type. Dose reduction techniques were achieved by using automated exposure control and/or adjustment of mA and/or kV according to patient size and/or use of iterative reconstruction technique. FINDINGS: LUNG BASES: No visible pulmonary or pleural disease. LIVER: No enlargement, atrophy, suspicious density, or significant focal lesion. BILIARY: No dilatation or calcification. PANCREAS: No lesion, fluid collection, or abnormal duct dilatation. SPLEEN: No enlargement or focal lesion. ADRENALS: No mass or enlargement. KIDNEYS: Several tiny 1 mm stones within the kidneys. No ureteral stones or obstruction. BOWEL/MESENTERY: No visible mass, obstruction, or bowel wall thickening. AORTA/VASCULAR: No aneurysm or dissection. RETROPERITONEUM: No mass or adenopathy. LYMPH NODES: No adenopathy. URINARY BLADDER: No visible focal wall thickening, lesion, or calculus. PELVIC ORGANS: No visible mass. Pelvic organs appropriate for patient age. ABDOMINAL WALL: No mass or hernia. BONES: No bony lesion or fracture. OTHER: Negative. CT/CT abdomen pelvis wo/w con IMPRESSION: 1. Bilateral nonobstructing nephrolithiasis which may contribute to patient's symptoms. 2. No urinary tract mass, inflammatory changes, or obstructive uropathy. Electronically authenticated by: JAM REED Date: 10/24/2023 09:34 Dictated By: Jam Reed M.D. Signed By: 10/24/23936 DD/ 3 TD/TT: Acoustical Logging Engineer: Procedure Note Radiology, Radiologist, - 10/24/2023 [place] [address] CT Scan Report Signed Patient: LOUIS STEVEN LMR#: [id number] : 1985Acct:[id number] Age/Sex: 37 / FADM Date: 10/21/23 Loc: CT Attending Dr: Keily Colvin NP Ordering Physician: Keily Colvin NP Date of Service: 10/21/23 Procedure(s): CT abdomen pelvis wo/w con Accession Number(s): [id number] cc: Keily Colvin NP [place] [address] Patient Name: LOUIS STEVEN MRN: [id number] date: 1985 Sex: F Assigned Patient Location: CT Current Patient Location: Accession/Order Number: [id number] Exam Date: 10/21/2023 09:30 Report Date: 10/24/2023 09:34 At the request of: KEILY COLVIN Procedure: CT abdomen pelvis wo/w con EXAMINATION: CT abdomen pelvis wo/w con HISTORY: Hematuria Microscopic R31.29 COMPARISON: No relevant comparison available. TECHNIQUE: Axial, Coronal, and Sagittal images were obtained withoutand/or with IV contrast as indicated by examination type. Dose reductiontechniques were achieved by using automated exposure control and/or adjustment of mA and/or kV according to patient size and/or use of iterative reconstruction technique. FINDINGS: LUNG BASES: No visible pulmonary or pleural disease. LIVER: No enlargement, atrophy, suspicious density, or significant focal lesion. BILIARY: No dilatation or calcification. PANCREAS: No lesion, fluid collection, or abnormal duct dilatation. SPLEEN: No enlargement or focal lesion. ADRENALS: No mass or enlargement. KIDNEYS: Several tiny 1 mm stones within the kidneys. No ureteral stonesor obstruction. BOWEL/MESENTERY: No visible mass, obstruction, or bowel wall thickening. AORTA/VASCULAR: No aneurysm or dissection. RETROPERITONEUM: No mass or adenopathy. LYMPH NODES: No adenopathy. URINARY BLADDER: No visible focal wall thickening, lesion, or calculus. PELVIC ORGANS: No visible mass. Pelvic organs appropriate for patient age. ABDOMINAL WALL: No mass or hernia. BONES: No bony lesion or fracture. OTHER: Negative. CT/CT abdomen pelvis wo/w con IMPRESSION: 1. Bilateral nonobstructing nephrolithiasis which may contribute topatient's symptoms. 2. No urinary tract mass, inflammatory changes, or obstructive uropathy. Electronically authenticated by: JAM REED Date: 10/24/2023 09:34 Dictated By: Jam Reed M.D. Signed By:10/24/23936 DD/ 3 TD/TT: Acoustical Logging Engineer: us Keily Colvin NP [facility] Final Result documented in this encounter Visit Diagnoses Not on filedocumented in this encounter Care Teams Mission Analyst Relationship Specialty Start Date End Date Landry Antoine MD [address] [place] [address] PCP - General Family Medicine 05/09/23 Keily Colvin NP [address] [place] [address] PCP - [facility] 09/26/23 Keily Colvin NP Referring Physician Nurse Practitioner 10/18/22 documented as of this encounter
--- OUTSIDE RECORDS SUMMARY | 2024-08-24 08:45 | XMS_ITS | Clinical Summary ---
Author Organization [facility] Address [id number] [address] [place] [address] Care Team Providers Care Mail Teller Name Role Phone Keily Colvin APRN-LEASE ANALYST Primary Care Provider Allergies No known active allergies Medications chlorhexidine (PERIDEX) 0.12 % solutionIndication s:Chronic tonsillitis Apply 15 mL to the mouth or throat 2 (two) times a day. 150 mL 04/01/19 21 Active Additional Information Patient not taking.Reported on 05/09/2024 diphenhydrAMINE (BENADRYL) 25 mg capsule Take 25 mg by mouth every 6 (six) hours as needed for itching. Active prednisoLONE (PRELONE) 15 mg/5 mL syrup Take 10 mL PO QD x 5 days 50 mL 06/20/19 21 Active Additional Information Patient not taking.Reported on 05/09/2024 promethazine (PHENERGAN) 6.25 mg/5 mL syrup Take 15-20 mL by mouth every 4-6 hours as needed for nausea vomiting 200 mL 06/20/19 21 Active Additional Information Patient not taking.Reported on 05/09/2024 sod smonu-vqgrhm-ttzep z bottle (NEILMED SINUS RINSE COMPLETE) packet with rinse device nasal solution Administer 1 packet into each nostril 2 (two) times a day. 60 packet 06/20/19 21 Active mupirocin (BACTROBAN) 2 % ointmentIndication s:S/P nasal septoplasty Applied intranasally bilaterally 2 times daily 15 g 05/18/19 22 Active Additional Information Patient not taking.Reported on 05/09/2024 tamsulosin (FLOMAX) 0.4 mg capsule Take 1 capsule (0.4 mg total) by mouth in the morning. 14 capsule 05/05/19 23 Active Additional Information Patient not taking.Reported on 05/09/2024 tiZANidine (ZANAFLEX) 4 mg tablet Take 1 tablet (4 mg total) by mouth. 08/17/19 24 Active ondansetron ODT (ZOFRAN ODT) 4 mg disintegrating tabletIndications: Nausea Take [address] scan 1 tablet 05/09/19 25 Active Active Problems Problem Noted Date Diagnosed Date S/P tonsillectomy 06/30/2020 S/P nasal septoplasty 06/30/2020 Chronic tonsillitis 04/01/2020 Nasal congestion 04/01/2020 Hematuria, microscopic 09/26/2018 Overview (10/31/2018): 09/26/18: Micro hematuria. Low risk. Plan renal ultrasound, cysto. The risks and benefits as outlined in the consent were discussed. All relevant drawings were reviewed. All questions were answered. The patient expressed understanding and wished to proceed. She does not believe she can tolerate this awake. Plan mac 10/31/18: Normal renal ultrasound. Negative cysto. 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; Enlarged lymph nodes Discharge Disposition: Home 05/27/2024 Travel from Last 3 Months Family History Medical History Relation Name Comments Diabetes Father Nikhil Steven Hypertension Father Nikhil Steven Breast cancer Maternal Aunt Mary Jackson Prostate cancer Maternal Grandfather Alexis Renetta Colon cancer Maternal Grandmother Nicole Renetta Uterine cancer Maternal Grandmother Nicole Renetta Colon cancer Maternal Uncle Alexis Renetta No Known Problems Mother Diabetes Paternal Grandfather Andrés Steven Diabetes Paternal Grandmother Brigid Tenisha Relation Name Status Comments Father Nikhil Steven Maternal Aunt Mary Renetta Maternal Grandfather Alexis Jackson Maternal Grandmother Nicole Jackson Maternal Uncle Alexis Jackson Mother Paternal Grandfather Andrés Deanliliamreina Paternal Grandmother Brigid Steven Social History Tobacco Use Types Packs/Day Years Used Date Smoking Tobacco: Never Smokeless Tobacco: Never Alcohol Use Standard Drinks/Week Comments Never 0 (1 standard drink = 0.6 oz pur e alcohol) AUDIT-C Answer Date Recorded Frequency of Alcohol Consumption Never 04/01/2020 Average Number of Drinks Not on file 021 Frequency of Binge Drinking Not on file 07/2020 PHQ-2 Answer Date Recorded Total Score 0 08/14/2020 Childcare Answer Date Recorded Childcare Unknown 09/06/2018 Employment Answer Date Recorded Employment Unknown 09/06/2018 Purpose - Life Answer Date Recorded Purpose and direction in life Unknown Comments No Sex and Gender Information Value Date Recorded Sex Assigned at Not on file Legal Sex Female 11:29 AM EDT Gender Identity Not on file Sexual Orientation Not on file Last Filed Vital Signs Vital Sign Reading Time Taken Comments Blood Pressure 120/64 05/09/2024 8:58 AM EST Pulse 60 05/05/2022 7:55 PM EST Temperature 36.4 C (97.6 F) 05/05/2022 6:01 PM EST Respiratory Rate 16 05/05/2022 7:55 PM EST Oxygen Saturation 98% 05/05/2022 8:00 PM EST Inhaled Oxygen Concentration - - Weight 66.3 kg (146 lb 3.2 oz) 05/09/2024 8:58 A M EST Height 162.6 cm (5' 4 ) 05/09/2024 8:58 AM EST Body Mass Index 25.1 05/09/2024 8:58 AM EST Plan of Treatment Health Maintenance Due Date Last Done Comments Depression Screening 1995 Adult BMI Follow Up Plan 10/29/2001 DTaP,Tdap and Td Vaccines (1 - Tdap) 10/29/2002 Pap Smear 10/29/2004 COVID-19 Vaccine ( season) 11/27/202301/2021, 08/08/2020 Influenza Vaccine 11/26/2024 01/28/2015 Adult BMI Screening 05/09/2025 05/09/2024 Tobacco Screening 05/28/2025 05/28/2024 Medical Devices Not on file Procedures Procedure Name Priority Date/Time Associated Diagnosis Comments CT PELVIS W CONT Routine 05/28/2024 7:47 AM EST 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 Automated exposure control was utilized. Comparison: 06/02/2022 Findings: There is a 2.5 cm left adnexal cyst presumably ovarian in nature most like representing a dominant follicle. No pelvic masses, adenopathy, or fluid collections are identified. No inguinal adenopathy is seen. No soft tissue masses are identified. The appendix is normal in appearance. Impression: Normal CT pelvis. Specifically, no soft tissue masses or adenopathy are identified. All CT scans at this facility use dose modulation, iterative reconstruction, and/or weight based dosing when appropriate to reduce radiation dose to as low as reasonably achievable Finalized by Mina Combs MD on 05/29/2024 6:08 AM Procedure Note Mina Combs MD - 05/29/2024 History: Vulvar lumps Technique: Contiguous axial images through the pelvis were obtainedfollowing the administration of intravenous contrast material. Automatedexposure control was utilized. Comparison: 06/02/2022 Findings: There is a 2.5 cm left adnexal cyst presumably ovarian in naturemost like representing a dominant follicle. No pelvic masses, adenopathy,or fluid collections are identified. No inguinal adenopathy is seen. Nosoft tissue masses are identified. The appendix is normal inappearance. Impression: Normal CT pelvis. Specifically, no soft tissue masses oradenopathy are identified. All CT scans at this facility use dose modulation, iterativereconstruction, and/or weight based dosing when appropriate to reduceradiation dose to as low as reasonably achievable Finalized by Mina Combs MD on 05/29/2024 6:08 AM us Stephanie Helton DO IMG CT ORDERABLES Final Result from Last 3 Months Insurance [facility] [address] [address] [employer] [employer] Care Teams Mail Teller Relationship Specialty Start Date End Date Keily Colvin, AUTOMATIC PROFILE SHAPER OPERATOR-LEASE ANALYST PCP - General Nurse Practitioner 08/14/18
--- OUTSIDE RECORDS SUMMARY | 2024-08-24 08:45 | XMS_ITS | Encounter Summary ---
Author Organization [facility] Address [address] [place] [address] Care Team Providers Care Staff Anesthetist Name Role Phone Keily Colvin BATCH MIXER OPERATOR Unavailable [phone] Landry Antoine MD Primary Care Provider [phone] Keily Colvin NP Unavailable [phone] Encounter Details Date Type Department Care Team (Latest Contact Info) Description 08/23/2024 Travel Social History Tobacco Use Types Packs/Day Years [...] 09/19/2024 9:00 AM EDT Office Visit [facility] [address] [place] [address] Keily Colvin NP [address] [place] [address] 11/01/2024 10:00 AM EDT Office Visit [facility] [address] [place] [phone] Keily Colvin NP [address] [place] [address] 08/22/2025 8:55 AM EDT Office Visit [facility] [address] [place] [phone] Ethel Corona APRN-DIRECTOR OF MANUFACTURING OPERATIONS [address] [place], [place] [phone] documented as of this encounter Visit Diagnoses Not on filedocumented in this encounter Care Teams Staff Anesthetist Relationship Specialty Start Date End Date Landry Antoine MD [address] [place] [address] PCP - General Family Medicine 05/09/23 Keily Colvin NP [address] [place] [address] PCP - [facility] 09/26/23 Keily Colvin NP Referring Physician Nurse Practitioner 10/18/22 documented as of this encounter
--- NOTE | 2024-08-24 08:46 | US_ITS ---
The [address] [address] Patient Name: LOUIS RIDER MRN: [id number] date: 1985 Sex: F Assigned Patient Location: US Current Patient Location: US Accession/Order Number: [id number] Exam Date: 08/24/2024 10:00 Report Date: 08/24/2024 10:03 At the request of: REBEL MURPHY NP Procedure: US abdomen limited LIMITED ABDOMINAL ULTRASOUND: CLINICAL HISTORY: Mid abdominal pain for the past 2-3 months following injury COMPARISON: CT 10/21/2023 Real-time ultrasound evaluation of the sites of patient's pain was performed. No subcutaneous cystic or solid masses are noted. No ventral hernias were demonstrated. No obvious abnormalities are visualized within the underlying abdominal cavity in the field of view. US/US abdomen limited IMPRESSION: NO ULTRASOUND ABNORMALITIES TO ACCOUNT FOR PATIENT'S SYMPTOMS. CLINICAL MANAGEMENT IS RECOMMENDED. CT COULD BE CONSIDERED IF FURTHER IMAGING EVALUATION IS WARRANTED. Impression dictated by: Kita Garcia M.D. 08/24/2024 10:03 AM Dictation Location: [place] [address] Electronically authenticated by: [id number] Y Date: 08/24/2024 10:03
--- OUTSIDE RECORDS SUMMARY | 2024-08-24 09:01 | XMS_ITS | CCD ---
Author Organization [facility] Care Team Providers Care Concierge Name Role Phone DR NEFTALI WILSON Admitting Unavailable NUSRAT COLVIN Primary Care Unavailable DR NEFTALI WILSON Attending Unavailable Dana Wilson Unavailable Marii IMMUNOPATHOLOGIST, Keily Unavailable Landry Antoine MD Primary Care Provider KEILY COLVIN Primary Care Physician HEAVENLY OLIVER Attending Unavailable KEILY COLVIN Referring Unavailable HEAVENLY OLIVER Admitting Unavailable HEAVENLY OLIVER Attending Unavailable Cindy Sánchez Admitting Unavailable Cindy Sácnhez Attending Unavailable Cindy Sánchez Referring Unavailable Marii IMMUNOPATHOLOGIST, Keily Unavailable Marii IMMUNOPATHOLOGIST, Keily Unavailable Marii TRUCK BODY BUILDER-Keily SILVERIO Primary Care Provider YNES SPIVEY Attending Unavailable KEILY COLVIN Referring Unavailable KEILY COLVIN Primary Care Unavailable YNES SPIVEY Referring Unavailable KEILY COLVIN Primary Care Unavailable YNES SPIVEY Attending Unavailable YNES SPIVEY Referring Unavailable KEILY COLVIN Primary Care Unavailable KEILY COLVIN Attending Unavailable KEILY COLVIN Attending Unavailable KEILY COLVIN Attending Unavailable KEILY COLVIN Attending Unavailable Medications Current Medications Medication Drug Class(es) Dates Sig (Normalized) Sig (Original) amoxicillin 875 mg / clavulanate 125 mg oral tablet (2 sources) Penicillin-class Antibacterial Start: 05-09-2023 End: 05-19-2023 take 1 tablet by mouth in the morning amoxicillin-clavula krystin (Augmentin) 875-125 MG tablet Indications: URI, acute [...] oral solution (1 source) alpha-Adrenergic Agonist, Uncompetitive G-bwezxq-S-aspartat e Receptor Antagonist, Sigma-1 Agonist Start: 03-09-2022 take 10 mL by mouth every six hours Pseudoeph-Bromphen- DM 30-2-10 MG/5ML 10 mL Orally every 6 hours for 5 days Feb, Active cephalexin 500 mg oral capsule (3 sources) Cephalosporin Antibacterial Start: 12-01-2023 take 1 capsule by mouth once daily Keflex 500 mg Cap See Instructions, 1 cap po day prior to cysto, 1 cap po following cysto, # 2 cap(s), Refills(s) 0, Pharmacy: [id number], 163, cm, 12/01/23 9:59:00 EDT, Height/Length Dosing, 72, kg, 12/01/23 9:59:00 EDT, Weight Dosing Start Date: 12/01/23 Status: Ordered chlorhexidine gluconate 1.2 mg/ml mouthwash (2 sources) Start: 04-01-2020 take 15 mL by mouth twice daily chlorhexidine (PERIDEX) 0.12 % solution Indications: Chronic tonsillitis Apply 15 mL to the mouth or throat 2 (two) times a day. 150 mL 04/01/2020 Active diphenhydrAMINE hydrochloride 25 mg oral capsule (2 sources) Histamine-1 Receptor Antagonist take 1 capsule by mouth every six hours as needed diphenhydrAMINE (BENADRYL) 25 mg capsule Take 25 mg by mouth every 6 (six) hours as needed for itching. Active ketorolac tromethamine 10 mg oral tablet (3 sources) Nonsteroidal Anti-inflammatory Drug, Cyclooxygenase Inhibitor Start: 12-01-2023 ketorolac 10 mg Tab See Instructions, PRN for pain, 1 tab q6h PRN stone pain. not to exceed 40 mg/day and 5 days duration., # 12 tab(s), Refills(s) 0, Pharmacy: [id number], 163, cm, 12/01/23 9:59:00 EDT, Height/Length Dosing, 72, kg, 12/01/23 9:59:00 EDT, Weight Dosing Start Date: 12/01/23 Status: Ordered mupirocin 0.02 mg/mg topical ointment (2 sources) RNA Synthetase Inhibitor Antibacterial Start: 05-18-2021 mupirocin (BACTROBAN) 2 % ointment Indications: S/P nasal septoplasty Applied intranasally bilaterally 2 times daily 15 g 05/18/2021 Active ondansetron 4 mg oral tablet (4 sources) Serotonin-3 Receptor Antagonist Start: 12-01-2023 take 1 tablet by mouth every six hours as needed for nausea Zofran 4 mg Tab 4 mg = 1 tab(s), Oral, q6hr, PRN Nausea/Vomiting, # 12 tab(s), Refills(s) 0, Pharmacy: [id number], 163, cm, 12/01/23 9:59:00 EDT, Height/Length Dosing, 72, kg, 12/01/23 9:59:00 EDT, Weight Dosing Start Date: 12/01/23 Status: Ordered Start: 03-09-2022 take 1 tablet by tena th every eight hours Ondansetron 4 MG 1 tablet on the tongue and allow to dissolve Orally every 8 hours for 5 days Feb, Active prednisoLONE 3 mg/ml oral solution (2 sources) Corticosteroid Start: 06-19-2020 take 10 mL by mouth once daily prednisoLONE (PRELONE) 15 mg/5 mL syrup Take 10 mL PO QD x 5 days 50 mL 06/19/2020 Active promethazine hydrochloride 1.25 mg/ml oral solution (2 sources) Phenothiazine Start: 06-19-2020 take 15-20 mL by mouth every four to six hours as needed for nausea promethazine (PHENERGAN) 6.25 mg/5 mL syrup Take 15-20 mL by mouth every 4-6 hours as needed for nausea vomiting 200 mL 06/19/2020 Active sod doksu-rxxarq-mqbpqe bottle (NEILMED SINUS RINSE COMPLETE) packet with rinse device nasal solution (2 sources) Start: 06-19-2020 take 1 dose nasal route twice daily sod zienl-mqghqy-xock ez bottle (NEILMED SINUS RINSE COMPLETE) packet with rinse device nasal solution Administer 1 packet into each nostril 2 (two) times a day. 60 packet 06/19/2020 Active tamsulosin hydrochloride 0.4 mg oral capsule (8 sources) alpha-Adrenergic Trina Start: 05-05-2022 End: 05-09-2023 take 1 capsule by mouth every twenty-four hours in the morning tamsulosin (Flomax) 0.4 MG 24 hr capsule Take 0.4 mg by mouth in the morning. 0 05/06/2022 05/09/2023 Discontinued (Therapy completed) Start: 05-05-2022 take 1 capsule by [facility] once daily Flomax 0.4 mg Cap 0.4 mg = 1 cap(s), Oral, Daily, start if suspect stone passage, # 14 cap(s), Refills(s) 0, Pharmacy: [id number], 163, cm, 12/01/23 9:59:00 EDT, Height/Length Dosing, 72, kg, 12/01/23 9:59:00 EDT, Weight Dosing Start Date: 12/01/23 Status: Ordered tiZANidine 4 mg oral tablet (17 sources) Central alpha-2 Adrenergic Agonist Start: 08-17-2023 End: 08-23-2024 take 1 tablet by mouth once tiZANidine (Zanaflex) 4 MG tablet Indications: Lumbar sprain, sequela Take 1 tablet (4 mg) by mouth every 12 (twelve) hours if needed for muscle spasms for up to 10 days 20 tablet 1 08/17/2023 08/23/2024 Discontinued (Therapy completed) Start: 08-17-2023 tiZANidine (ZA NAFLEX) 4 mg tablet Take 1 tablet (4 mg total) by mouth. 08/17/2023 Active Start: 03-22-2023 End: 05-09-2023 take 1 tablet by mouth once tiZANidine (Zanaflex) 4 MG tablet Indications: Spasm of muscle of lower back Take 1 tablet (4 mg) by mouth every 12 (twelve) hours if needed for muscle spasms for up to 10 days 20 tablet 0 03/22/2023 05/09/2023 Discontinued (Therapy completed) triamcinolone acetonide 1 mg/ml topical cream (2 sources) Corticosteroid Start: 08-23-2024 triamcinolone (Kenalog) 0.1 % cream Indications: Other atopic dermatitis Apply to eczema on arms BID when flared, hold when clear/30 days. Do not use on the face, neck, armpits or groin 80 g 11 08/23/2024 Active Start: 08-23-2024 triamcinolone (Kenalog) 0.1 % cream Indications: Other atopic dermatitis Apply to eczema on arms BID when flared, hold when clear/30 days. Do not use on the face, neck, armpits or groin 80 g 11 08/23/2024 Active Completed/Discontinued Medications Medication Drug Class(es) Dates Sig (Normalized) Sig (Original) naproxen 500 mg oral tablet (3 sources) Nonsteroidal Anti-inflammatory Drug Start: 10-21-2022 End: 05-09-2023 naproxen (Naprosyn) 500 MG tablet Take 250 mg by mouth in the morning and 250 mg in the evening. Take with meals. 0 10/21/2022 05/09/2023 Discontinued (Therapy completed) Problems Active Problems Problem Classification Problem Date Documented Date Episodic/Chronic Abdominal pain (20 sources) Unspecified abdominal pain; Translations: [Indigestion] Onset: 05-05-2022 Resolved: 04-16-2024 Episodic Acute and chronic tonsillitis (2 sources) Chronic tonsillitis; Translations: [Chronic tonsillitis] Onset: 04-01-2020 04-01-2020 Chronic Allergic reactions (2 sources) Atopic dermatitis; Translations: [Other atopic dermatitis] 08-23-2024 Chronic Immunizations and screening for infectious disease (2 sources) Contact with and (suspected) exposure to other viral communicable diseases; Translations: [Contact with and (suspected) exposure to other viral communicable diseases] Episodic Influenza (1 source) Influenza due to other identified influenza virus with other respiratory manifestations Episodic Lymphadenitis (4 sources) Lymphadenopathy; Translations: [Enlarged lymph nodes, unspecified] Onset: 05-09-2024 05-09-2024 Episodic Malaise and fatigue (1 source) Fatigue; Translations: [Other fatigue] Episodic Menopausal disorders (3 sources) Perimenopausal state; Translations: [Menopausal and female climacteric states] Onset: 05-09-2024 05-09-2024 Chronic Menstrual disorders (4 sources) Disorder of menstruation; Translations: [Irregular menstruation, unspecified] Onset: 05-09-2024 05-09-2024 Chronic Mood disorders (3 sources) Disturbance in mood; Translations: [Emotional lability] Onset: 05-09-2024 05-09-2024 Episodic Other and unspecified benign neoplasm (2 sources) Melanocytic nevus of trunk; Translations: [Melanocytic nevi of trunk] 08-23-2024 Episodic Other endocrine disorders (1 source) Decreased cortisol level; Translations: [Unspecified adrenocortical insufficiency] Chronic Other nutritional; endocrine; and metabolic disorders (1 source) Weight increased; Translations: [Abnormal weight gain] 05-09-2024 Episodic Other nutritional; endocrine; and metabolic disorders (2 sources) Abnormal weight gain; Translations: [Abnormal weight gain] Onset: 05-09-2024 Episodic Other skin disorders (2 sources) Lentiginosis; Translations: [Other melanin hyperpigmentation] 08-23-2024 Episodic Other skin disorders (2 sources) Foot callus; Translations: [Corns and callosities] 08-23-2024 Episodic Residual codes; unclassified (1 source) Procedure and treatment not carried out due to patient leaving prior to being seen by health care provider; Translations: [PROC AND TX NOT CARRIED OUT PT LEAVE] Onset: 05-06-2022 Episodic Residual codes; unclassified (1 source) Family history of cancer; Translations: [Family history of malignant neoplasm, unspecified] 05-09-2024 Episodic Residual codes; unclassified (1 source) Family history of malignant neoplasm of uterus; Translations: [Family history of malignant neoplasm of other genital organs] 05-09-2024 Episodic Residual codes; unclassified (1 source) Family history of prostate cancer; Translations: [Family history of malignant neoplasm of prostate] 05-09-2024 Episodic Residual codes; unclassified (1 source) Family history of cancer of colon; Translations: [Family history of malignant neoplasm of digestive organs] 05-09-2024 Episodic Residual codes; unclassified (1 source) Family history of malignant neoplasm, unspecified; Translations: [Family history of malignant neoplasm, unspecified] Onset: 05-09-2024 Episodic Residual codes; unclassified (1 source) Family history of malignant neoplasm of other genital organs; Translations: [Family history of malignant neoplasm of other genital organs] Onset: 05-09-2024 Episodic Residual codes; unclassified (1 source) Family history of malignant neoplasm of prostate; Translations: [Family history of malignant neoplasm of prostate] Onset: 05-09-2024 Episodic Residual codes; unclassified (1 source) Family history of malignant neoplasm of digestive organs; Translations: [Family history of malignant neoplasm of digestive organs] Onset: 05-09-2024 Episodic Unclassified (1 source) Labial Lumps Onset: 05-09-2024 Past or Other Problems Problem Classification Problem Date Documented Date Episodic/Chronic Allergic reactions (10 sources) Eczema; Translations: [Dermatitis, unspecified] Onset: 04-16-2024 04-16-2024 Episodic Calculus of urinary tract (13 sources) Kidney stone; Translations: [Calculus of kidney] Onset: 10-25-2023 Episodic Chronic obstructive pulmonary disease and bronchiectasis (9 sources) Bronchitis; Translations: [Bronchitis, not specified as acute or chronic] Onset: 06-16-2023 Resolved: 08-17-2023 08-17-2023 Episodic Genitourinary symptoms and ill-defined conditions (18 sources) Microscopic hematuria; Translations: [Other microscopic hematuria] Onset: 09-26-2018 05-09-2023 Episodic Mood disorders (2 sources) Mood disorders Onset: 08-14-2020 08-14-2020 Neoplasms of unspecified nature or uncertain behavior (16 sources) 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; Translations: [Neoplasm of uncertain behavior of other specified female genital organs] Onset: 04-16-2024 04-16-2024 Episodic Other screening for suspected conditions (not mental disorders or infectious disease) (19 sources) Measurement finding above reference range; Translations: [Other specified abnormal findings of blood chemistry] Onset: 06-16-2023 06-16-2023 Episodic Other upper respiratory disease (2 sources) Nasal congestion; Translations: [Nasal congestion] Onset: 04-01-2020 04-01-2020 Episodic Other upper respiratory infections (13 sources) Acute upper respiratory infection; Translations: [Acute upper respiratory infection, unspecified] Onset: 05-09-2023 Resolved: 06-16-2023 05-09-2023 Episodic Residual codes; unclassified (9 sources) Patient participation status; Translations: [Other specified health status] Onset: 08-17-2023 08-17-2023 Episodic Sprains and strains (9 sources) Lumbar sprain; Translations: [Sprain of ligaments of lumbar spine, initial encounter] Onset: 08-17-2023 08-17-2023 Episodic Urinary tract infections (18 sources) Acute cystitis; Translations: [Acute cystitis without hematuria] Onset: 08-17-2023 Resolved: 04-16-2024 04-16-2024 Episodic Results Test Name Value Interpretation Reference Range Facility CT PELVIS W CONTon CT PELVIS W CONT CT PELVIS W CONT History: Vulvar lumps Technique: Contiguous axial images [...] dose to as low as reasonably achievable 2 Finalized by Mina Combs MD on 05/29/2024 6:08 AM Normal [facility] CBC AND AUTO DIFFon 02-12-20 25 ABSOLUTE BASOPHIL 0.0 X10E9/L Normal 0.0-0.2 [facility] Comment on above: Performed By: #### C BCA, 2986-8, 2839-9, THYR, 2842-3, 56196- 2, 37605-3, 2243-4 #### [facility] ([id number]) [address], [address] [place] [address] ABSOLUTE NEUTROPHIL 3.3 X10E9/L Normal 1.5-6.6 [facility] Comment on above: Performed By: #### C BCA, 2986-8, 2839-9, THYR, 2842-3, 23946- 2, 34630-7, 2243-4 #### [facility] ([id number]) [address], [address] [place] [address] Basophils/100 WBC (Bld) 0.6 % Normal [facility] Comment on above: Performed By: #### C BCA, 2986-8, 2839-9, THYR, 2842-3, 13745- 2, 50679-8, 3-4 #### [facility] ([id number]) [address], [address] [place] [address] Eosinophils (Bld) [#/Vol] 0.0 10*3/uL Normal 0.0-0.4 [facility] Comment on above: Performed By: #### C BCA, 2986-8, 2839-9, THYR, 2842-3, 31525- 2, 42228-2, 2243-4 #### [facility] ([id number]) [address], [address] [place] [address] Eosinophils/100 WBC (Bld) 0.6 % Normal [facility] Comment on above: Performed By: #### C BCA, 2986-8, 2839-9, THYR, 2842-3, 91895- 2, 04524-1, 2243-4 #### [facility] ([id number]) [address], [address] [place] [address] Erythrocyte distribution width (RBC) [Ratio] 13.9 % Normal 11.5-15.0 [facility] Comment on above: Performed By: #### C BCA, 2986-8, 2839-9, THYR, 2842-3, 22989- 2, 97006-2, 2243-4 #### [facility] ([id number]) [address], [address] [place] [address] Hematocrit (Bld) [Volume fraction] 41.8 % Normal 35-47 [facility] Comment on above: Performed By: #### C BCA, 2986-8, 2839-9, THYR, 2842-3, 40830- 2, 51878-9, 2243-4 #### [facility] ([id number]) [address], [facility] [address] [place] [address] Hemoglobin (Bld) [Mass/Vol] 14.3 g/dL Normal 11.7-15.5 [facility] Comment on above: Performed By: #### C BCA, 2986-8, 2839-9, THYR, 2842-3, 53364- 2, 32164-0, 2243-4 #### [facility] ([id number]) [address] [address] [place] [address] Lymphocytes (Bld) [#/Vol] 1.2 10*3/uL Normal 1.0-3.5 [facility] Comment on above: Performed By: #### C BCA, 2986-8, 2839-9, THYR, 2842-3, 79877- 2, 34028-4, 2243-4 #### [facility] ([id number]) [address] [address] [place] [address] Lymphocytes/100 WBC (Bld) 22.8 % Normal [facility] Comment on above: Performed By: #### C BCA, 2986-8, 2839-9, THYR, 2842-3, 55076- 2, 98353-3, 2243-4 #### [facility] ([id number]) [address], [address] [place] [address] MCH (RBC) [Entitic mass] 32.3 pg Normal 27-34 [facility] Comment on above: Performed By: #### C BCA, 2986-8, 2839-9, THYR, 2842-3, 43348- 2, 76024-0, 2243-4 #### [facility] ([id number]) [address], [address] [place] [address] MCHC (RBC) [Mass/Vol] 34.1 g/dL Normal 32-36 [facility] Comment on above: Performed By: #### C BCA, 2986-8, 2839-9, THYR, 2842-3, 58994- 2, 79670-7, 2243-4 #### [facility] ([id number]) [address], [address] [place] [address] MCV (RBC) [Entitic vol] 95 fL Normal 80-100 [facility] Comment on above: Performed By: #### C BCA, 2986-8, 2839-9, THYR, 2842-3, 58502- 2, 49469-6, 2243-4 #### [facility] ([id number]) [address], [address] [place] [address] Monocytes (Bld) [#/Vol] 0.7 10*3/uL Normal 0-0.9 [facility] Comment on above: Performed By: #### C BCA, 2986-8, 2839-9, THYR, 2842-3, 21804- 2, 16924-9, 2243-4 #### [facility] ([id number]) [address], [address] [place] [address] Monocytes/100 WBC (Bld) 12.8 % Normal [facility] Comment on above: Performed By: #### C BCA, 2986-8, 2839-9, THYR, 2842-3, 85891- 2, 00504-4, 2243-4 #### [facility] ([id number]) [address], [address] [place] [address] Neutrophils/100 WBC (Bld) 63.2 % Normal [facility] Comment on above: Performed By: #### C BCA, 2986-8, 2839-9, THYR, 2842-3, 59083- 2, 80393-0, 2243-4 #### [facility] ([id number]) [address], [address] [place] [address] Platelet mean volume (Bld) [Entitic vol] 7.5 fL Normal 7-12 [facility] Comment on above: Performed By: #### C BCA, 2986-8, 2839-9, THYR, 2842-3, 41937- 2, 51544-8, 2243-4 #### [facility] ([id number]) [address], [facility] [address] [place] [address] Platelets (Bld) [#/Vol] 342 10*3/uL Normal 150-450 [facility] Comment on above: Performed By: #### C BCA, 2986-8, 2839-9, THYR, 2842-3, 66780- 2, 93057-7, 2243-4 #### [facility] ([id number]) [address], [address] [place] [address] RBC COUNT 4.41 X10E12/L Normal 3.80-5.20 [facility] Comment on above: Performed By: #### C BCA, 2986-8, 2839-9, THYR, 2842-3, 96602- 2, 76564-2, 2243-4 #### [facility] ([id number]) [address], [address] [place] [address] WBC (Bld) [#/Vol] 5.2 10*3/uL Normal 4.0-11.0 [facility] Comment on above: Performed By: #### C BCA, 2986-8, 2839-9, THYR, 2842-3, 43285- 2, 02561-2, 3-4 #### [facility] ([id number]) [address] [facility] [address] [place] [address] E2 [Mass/Vol]on 05-09-2024 ESTRADIOL 133.4 pg/mL Normal [facility] Comment on above: Result Comment: NON- FEMALES Mid follicular: 25-115 pg/mL Ovulatory Peak: 32.1-517 pg/mL Mid Luteal: 36.5-246 pg/mL Post-Menopausal Females: <15.0-25.1 pg/mL (Not on hormone therapy) The Access Sensitive Estradiol assay results are not intended to be used to measure the effectiveness of exogeneous Estradiol supplementation, for example, when the patient is on hormone replacement therapy. The presence of estradiol drug analogues and their metabolites could have an impact on estradiol recovery when using this assay. Performed By: #### C BCA, 2986-8, 2839-9, THYR, 2842-3, 27652-0, 14917-1, 3-4 #### [facility] ([id number]) [address] [facility], [address] [place] [address] Follitropin Qnon 05-09-2024 FOLLICLE STIM HORMONE 2.2 mIU/mL Normal [facility] Comment on above: Result Comment: NORMAL FEMALE Luteal 1.8-5.1 mIU/mL Follicular 3.8-8.8 mIU/mL Mid Cycle 4.5-22.5 mIU/mL Post [place] 16.7-113.6 mIU/mL Performed By: #### C BCA, 2986-8, 2839-9, THYR, 2842-3, 20304-1, 10022-7, 2243-4 #### [facility] ([id number]) [address], [address] [place] [address] Lutropin Qnon 05-09-2024 LUTEINIZING HORMONE 1.9 mIU/mL Normal [facility] Comment on above: Result Comment: NORMAL FEMALE Follicular 2.1-10.9 mIU/mL Mid Cycle 19.2-103 mIU/mL Luteal 1.2-12.9 mIU/mL Post [place] 10.9-58.6 mIU/mL Performed By: #### C BCA, 2986-8, 2839-9, THYR, 2842-3, 69930-0, 49724-3, 2243-4 #### [facility] ([id number]) [address], [address] [place] [address] Progesterone [Mass/Vol]on PROGESTERONE 11.6 ng/mL Normal [facility] Comment on above: Result Comment: FEMALES: 1st Tri: 4.7-50.7 ng/ml 2nd Tri: 19.4-45.3 ng/ml MENSTRUATING FEMALES: Follicular: 0.3-1.5 ng/ml Mid Luteal: 5.2-18.6 ng/ml Post [place]: <0.1-0.8 ng/ml Performed By: #### C BCA, 2986-8, 2839-9, THYR, 2842-3, 78427-4, 25298-3, 2243-4 #### [facility] ([id number]) [address], [address] [place] [address] Prolactin [Mass/Vol]on 05-09 PROLACTIN 5.8 ng/mL Normal 3.3-26.7 [facility] Comment on above: Performed By: #### C BCA, 2986-8, 2839-9, THYR, 2842-3, 70839- 2, 24092-1, 2243-4 #### [facility] ([id number]) [address], [address] [place] [address] THYROID PROFILEon 05-09-2024 Free T4 [Mass/Vol] 0.83 ng/dL Normal 0.61-1.60 [facility] Comment on above: Performed By: #### C BCA, 2986-8, 2839-9, THYR, 2842-3, 15698- 2, 00153-0, 3-4 #### [facility] ([id number]) [address], [address] [place] [address] TSH 1.07 uIU/mL Normal 0.49-4.67 [facility] Comment on above: Performed By: #### C BCA, 2986-8, 2839-9, THYR, 2842-3, 27524- 2, 15937-3, 2243-4 #### [facility] ([id number]) [address], [address] [place] [address] Testosterone [Mass/Vol]on TESTOSTERONE 0.42 ng/mL Normal 0.00-0.70 [facility] Comment on above: Performed By: #### C BCA, 2986-8, 2839-9, THYR, 2842-3, 16400- 2, 54662-9, 2243-4 #### [facility] ([id number]) [address] [place] [address], [address] [place] [address] Inpatient Patient Summaryon 03-12-2024 Inpatient Patient Summary Inpatient Patient Summary [address] [address] Clinical Summary Person Information Name: LOUIS STEVEN Age: 38 Years : 1985 Sex: Female PCP: KEILY COLVIN CNP Marital Status: Single Race: White Ethnicity: Non- or Language: Bolivian Visit Id: Visit Reason: MICROHEMATURIA Speciality: Acuity: Enc Type: Outpatient Med Service: Surgery Arrival: 03/12/2024 07:53:10 Discharge: Dispo Type: Address: [address] [place] [id number] Provider Notes: Diagnosis: Microhematuria Problems Active Kidney stones Microhematuria Smoking Status: Functional Status: Sensory Deficits: History of Falls: Mobility Assistance Prior to Admission: ADLs: Current Level of Assistance for Self-Care/Mobility: Cognitive Status: Allergies No Known Allergies Laboratory or Other Results This Visit (last charted value for your 03/12/2024 visit) No Laboratory or Other Results This Visit Measurements: Height: Weight: Blood Pressure: Not Valued / Not Valued BMI: Procedures No Procedures Documented Immunizations No Immunizations Documented This Visit Final Med List: cephalexin (Keflex 500 mg Cap) 1 cap po day prior to cysto, 1 cap po following cysto. Refills: 0. ketorolac (ketorolac 10 mg Tab) 1 tab q6h PRN stone pain. not to exceed 40 mg/day and 5 days duration.; as needed for pain. Refills: 0. ondansetron (Zofran 4 mg Tab) 1 Tablets By Mouth every 6 hours as needed Nausea/Vomiting. Refills: 0. tamsulosin (Flomax 0.4 mg Cap) 1 Capsules By Mouth every day. start if suspect stone passage. Refills: 0. tizanidine (tiZANidine 4 mg Tab) 2 Tablets By Mouth 2 times a day. take 1 tablet by mouth every 12 hours if needed for muscle spasm for up to 12 DAYS. Care Team Members: Attending Physician: Cindy Sánchez MD Consulting Physician: Referring Physician: Cindy Sánchez MD Follow up: With: Address: When: Cindy Sánchez Comments: Call for any problems. Patient Education Information: EU - Cystoscopy Discharge Instructions (CUSTOM) [facility] Main OR Intraoperative Recor don 03-12-2024 Main OR Intraoperative Record Main OR Intraoperative Record IntraOp Document Type FTURO Summary Primary Physician: Cindy Sánchez MD Finalized Date/Time: 03/12/24 08:47:14 Pt. Name: MAGGIE STEVENLyudmila Real D.O.B./Sex: 1985 Female Med Rec #: [id number] Physician: Cindy Sánchez MD Financial #: [id number] Pt. Type: O Room/Bed: / Admit/Disch: 03/12/24 07:53:10 - Institution: Case Times FTURO Entry 1 Patient Times In Room 03/12/24 08:27:00 Out Room 03/12/24 09:00:00 Procedure Times Start 03/12/24 08:40:00 Stop 03/12/24 08:46:00 Anesthesia Times Last Modified By: Anjana Gilmore Ii 03/12/24 08:47:00 Case Attendance FTURO Entry 1 Entry 2 Entry 3 Case Attendee Cindy Sánchez MD, Kendall R Letrondo, Alfons Ii F Role Performed Surgeon - Primary Scrub - Primary Soaker Meat - Primary Time In 03/12/24 08:27:00 03/12/24 08:27:00 03/12/24 08:27:00 Time Out 03/12/24 09:00:00 03/12/24 09:00:00 03/12/24 09:00:00 Procedure CYSTOSCOPY LOCAL(.) CYSTOSCOPY LOCAL(.) CYSTOSCOPY LOCAL(.) Comments Last Modified By: Anjana Gilmore Ii, Alfons Ii F Letrondo, Alfons Ii F 03/12/24 08:47:02 03/12/24 08:47:02 03/12/24 08:47:02 Surgical Procedures FTURO Entry 1 Procedure Description Procedure CYSTOSCOPY LOCAL Modifiers . Surgeon Description CYSTOSCOPY Primary Procedure Yes Primary Surgeon Cindy Sánchez MD Start 03/12/24 08:40:00 Stop 03/12/24 08:46:00 Anesthesia Type Local Surgical Service Urology Wound Class 2 - Clean-Contaminated Last Modified By: Anjana Gilmore Ii 03/12/24 08:47:04 General Case Data FTURO Pre-Care Text: Classifies surgical wound, implements aseptic technique, initiates traffic control Entry 1 Case Information OR URO 1 FT Case Level None Wound Class 2 - Clean-Contaminated Specialty Urology Preop Diagnosis MICROHEMATURIA Postop Same As Preop Yes Postop Diagnosis MICROHEMATURIA Outcomes Met? Yes Last Modified By: Anjana Gilmore Ii 03/12/24 08:28:55 Post-Care Text: The patient is free from signs and symptoms of infection EU IntraOp - FTURO Pre-Care Text: Implements protective measures prior to operative or invasive procedure, confirms identity before the operative or invasive procedure, verifies operative procedure, surgical site, and laterality Entry 1 EU Perioperative Protocols Procedure(s) CYSTOSCOPY LOCAL(.) Patient Identity Birthday, ID Band Verified (select at Check, Patient least 2): Participation Consents / H and P H&P, Surgery/Procedure Operative Site N/A Verified Consent Marking Verified Surgical Site Yes Laterality Verified n/a Verified Procedure Verified Yes Correct Patient Yes Position Verified Availability Equipment, Medication Time Out Cindy Sánchez MD, Verified (If Participants Gurdeep Gooden, Applicable) Anjana Gilmore Ii Time Out Complete 03/12/24 08:40:00 Allergies Reviewed? Yes Allergies Reviewed Self/Patient With Body Position Supine Prep Area VAGINA Prep Agents Betasept Skin. Condition Intact, [place], Warm, & Description UNCHANGED Dry Additional None Specimens Collected Vitals - EU Blood Pressure 146/96 Pulse 75 bpm Respirations 20 br/min SPO2 98 % I&O - EU Outcomes Met? Yes Last Modified By: Anjana Gilmore Ii 03/12/24 08:43:24 Post-Care Text: The patient is free from signs and symptoms of injury caused by extraneous objects Sign Out FTURO Entry 1 Before Patient Leaves OR Nurse verbally Yes Nurse verbally Yes confirms with the confirms with the team the name of team that the procedure(s) instrument, sponge, recorded and needle counts are correct (or N/A) Nurse verbally n/a Nurse verbally Yes confirms with the confirms with the team how the team whether there specimen is labeled are any equipment (including patient problems to be name), if applicable addressed Sign Out Complete 03/12/24 08:47:00 Last Modified By: Anjana Gilmore Ii 03/12/24 08:47:11 Case Comments Finalized By: Anjana Gilmore Ii Document Signatures Signed By: Anjana Gilmore Ii 03/12/24 08:47 Normal [facility] Main OR Preoperative Recordo n 03-12-2024 Main OR Preoperative Record Main OR Preoperative Record Holding Area Document Type FTURO Summary Primary Physician: Cindy Sánchez MD Finalized Date/Time: 03/12/24 08:27:54 Pt. Name: LOUIS STEVEN Farhan ElliottB./Sex: 1985 Female Med Rec #: [id number] Physician: Cindy Sánchez MD Financial #: [id number] Pt. Type: O Room/Bed: / Admit/Disch: 03/12/24 07:53:10 - Institution: Case Times Holding FTURO Pre-Care Text: Verifies consent for planned procedure, identifies individual values and wishes concerning care, includes family members in perioperative teaching Secures patient's records' belongings, and valuables, maintains patient's dignity and privacy, and maintains patient confidentiality Entry 1 In Holding 03/12/24 08:08:00 Outcomes Met? Yes Last Modified By: Shannan Pratt LPN 03/12/24 08:08:05 Post-Care Text: The patient participates in decisions affecting his or her perioperative plan of care The patient's right to privacy is maintained Surgery Checklist FTURO Entry 1 Patient Birthday, ID Band Procedure Surgical Consent, With Identification: Check, Patient Verification: Patient Participation NPO after Midnight: n/a Limitations: up ad reggie Complaints of Pain: No Skin Integrity Intact, [place], Warm, & Dry Vitals - EU Blood Pressure 146/96 Pulse 75 bpm Respirations 20 br/min SPO2 98 % Additional None RN Reviewed Yes Specimens Collected Last Modified By: Anjana Gilmore Ii 03/12/24 08:27:52 Finalized By: Anjana Gilmore Ii Document Signatures Signed By: Shannan Pratt LPN 03/12/24 08:10 Anjana Gilmore Ii 03/12/24 08:27 Normal [facility] Operative Reporton Operative Report Operative Report Patient: LOUIS STEVEN Age: 38 years Sex: Female : 1985 Associated Diagnoses: None Author: Cindy Sánchez MD Procedure Operative Information Details: Date/ Time: 03/12/2024 08:50:00. Pre-Op Dx: Microhematuria ([id number] R31.29, Discharge, Medical). Post-Op Dx: Same. Anesthesia Type: Local. Procedure: Local Cystoscopy. Complications: None. Risks/Benefits/Info rmed Consent: Surgical risks, benefits, details of the procedure have been explained to the patient, Full informed consent has been obtained. Intraoperative Information Prepped: Patient is brought back to the endoscopy suite, Patient is placed in supine position, Patient prepped in the usual fashion with Betadine solution, 2% Xylocaine Jelly is placed per Urethra, After waiting several minutes the Cystoscope is introduced. The Urethra is: Normal, Few inflammatory polyps at bladder neck. The Bladder is: Normal, Trabeculated None (0), No bladder tumors, lesions, stones or foreign bodies. . The ureteral orifices: Show efflux of clear urine. Devices Implanted: None. Removal: Cystoscope is removed, The patient tolerated it well. Vaginal examination: Vaginal mucosa: There is no vaginal atrophy The urethra is patent, orthotopic. There are no masses or lesions. There is no urethral hypermobility and LUCERO is not seen. She is able to correctly identify her pelvic muscles. No significant anterior, apical or posterior prolapse. Non-tender pelvic floor muscles . Postoperative Information Discharge: Follow up arranged, Urine cytology negative. No evidence of malignancy. Patient with history of familial microscopic hematuria. Follow-up as needed. Normal [facility] Comment on above: Result Comment: Elec tronically Signed By: Cindy Sánchez MD\.br\Date and Time Signed: 03/12/24 08:54 EST Outpatient Surgery Discharge Instructionon 03-12-2024 Outpatient Surgery Discharge Instruction Outpatient Surgery Discharge Instruction [place] [id number] Patient Discharge Instructions PERSON INFORMATION Name: LOUIS STEVEN Date of : 1985 Current Date: 03/12/2024 08:50:26 PHYSICIANS Admitting Physician: Cindy Sánchez MD Comment: Discharge Diagnosis: Microhematuria LOUIS STEVEN has been given the following list of follow-up instructions, prescriptions, and patient education materials: IF UNABLE TO CONTACT YOUR PHYSICIAN AND YOU FEEL IT IS AN EMERGENCY, GO TO THE NEAREST EMERGENCY ROOM OR CALL 911 Follow up: With: Address: When: Cindy Sánchez Comments: Call for any problems. Comment: PATIENT EDUCATION INFORMATION Instructions: Cystoscopy ??? Voiding after the procedure: there may be some pain, burning, urgency, frequency and blood tinged urine following the procedure. These symptoms usually resolve within 2-5 days. Drink the amount of fluid it takes to keep the urine pink to yellow or clear in color. Drinking enough water and fluids will help to ease any discomfort after your procedure. ??? If you are having problems that seem out of the ordinary, please call. ??? If unable to contact your physician and you feel it is an emergency, go to the nearest emergency room or call 911 ??? Diet ??? you may resume your normal diet. ??? Activity ??? you may resume your normal activities ??? Call if you have a fever over 100 degrees. I, LOUIS STEVEN, have received the attached patient education materials/instructi ons and have verbalized understanding: May we do a follow up call? Yes No I was present when discharge instructions were given _ Patient Signature Date Clinican/Nurse Signature Date You may receive a survey from Alexis Villaseñor asking you to rate your care experience. Your feedback is important and will help us understand what we do well and how we can improve the quality of care we provide to you, your loved ones and our community. It???s an honor to serve you. Thank you for choosing [facility] Normal [facility] Urine Cytology ([facility])on 12-12-2023 Microscopic exam Cytology (U) [Interp] Diagnosis Info Invalid Interpretation Code [facility] Comment on above: Result Comment: A:Ur ine,Clean Catch:Voided Interpretation - Adequate cellularity for evaluation. MicroScopic Description - Adequacy - Adequate Gross Description Site ID:A color Yellow fixative Alcohol Specimen designated Clean Catch received in alcohol preservative and labeled with the patient???s name, consists of 50ml clear yellow fluid. Electronically signed by : on: 12/12/2023 10:50:09 Performed By: #### 1 [id number] #### [facility] [address] [place] [address] Ambulatory Visit Summaryon 12-01-2023 Ambulatory Visit Summary Ambulatory Visit Summary LOUIS STEVEN :1985 Visit Date:12/01/2023 Ambulatory Visit Instructions Your Diagnosis Microhematuria Kidney stones Your Care Team Attending Physician - MELODY PANDEY, HEAVENLY Perry Primary Care Physician - KEILY COLVIN CNP Referring Physician - KEILY COLVIN CNP This Is Your Medications List cephalexin (Keflex 500 mg Cap) ketorolac (ketorolac 10 mg Tab) ondansetron (Zofran 4 mg Tab) tamsulosin (Flomax 0.4 mg Cap) Contact prescribing physician if questions or concerns tizanidine (tiZANidine 4 mg Tab) Procedures Performed Tonsillectomy. Discharge Vitals Heart Rate (Peripheral) 86 Respiratory Rate 16 Blood Pressure 138/70 Height 163 cm Height 64 in Weight 72 kg Weight 158.4 lb BMI 27.1 What to do next You Need to Schedule the Following Appointments Follow Up with [facility] When: Comments: our histopathologist will be contacting you for follow-up Where: [address] [place] [address] Business (1) Medications What How Much When Why Instructions New cephalexin (Keflex 500 mg Cap) See instructions Microhematuria Kidney stones 1 cap po day prior to cysto, 1 cap po following cysto Pickup at [facility] New ketorolac (ketorolac 10 mg Tab) See instructions 1 tab q6h PRN stone pain. not to exceed 40 mg/ day and 5 days duration. Pickup at [facility] New ondansetron (Zofran 4 mg Tab) 1 Tablets By Mouth Every 6 hours as needed for Nausea/Vomiting Pickup at [facility] New tamsulosin (Flomax 0.4 mg Cap) 1 Capsules By Mouth Every day start if suspect stone passage Pickup at [facility] Unchanged tizanidine (tiZANidine 4 mg Tab) 2 Tablets By Mouth 2 times a day take 1 tablet by mouth every 12 hours if needed for muscle spasm for up to 12 DAYS Contact prescribing physician if questions or concerns Pharmacy Information [facility]: [address] [place] [id number] [phone] Allergies No Known Allergies Problems Ongoing - Any problem that you are currently receiving treatment for. Kidney stones Microhematuria Patient Survey You may receive a survey via text or e-mail asking about your office visit. Please share your experience with us by completing your survey. We appreciate your feedback and thank you for choosing us for your care. Education Materials Hematuria, Adult Hematuria is blood in the urine. Blood may be visible in the urine, or it may be identified with a test. This condition can be caused by infections of the bladder, urethra, kidney, or prostate. Other possible causes include: ? Kidney stones. ? Cancer of the urinary tract. ? Too much calcium in the urine. ? Conditions that are passed from parent to child (inherited conditions). ? Exercise that requires a lot of energy. Infections can usually be treated with medicine, and a kidney stone usually will pass through your urine. If neither of these is the cause of your hematuria, more tests may be needed to identify the cause of your symptoms. It is very important to tell your health care provider about any blood in your urine, even if it is painless or the blood stops without treatment. Blood in the urine, when it happens and then stops and then happens again, can be a symptom of a very serious condition, including cancer. There is no pain in the initial stages of many urinary cancers. Follow these instructions at home: Medicines ? Take dplz-sox-idihsfa and prescription medicines only as told by your health care provider. ? If you were prescribed an antibiotic medicine, take it as told by your health care provider. Do not stop taking the antibiotic even if you start to feel better. Eating and drinking ? Drink enough fluid to keep your urine pale yellow. It is recommended that you drink 3?4 quarts (2.8?3.8 L) a day. If you have been diagnosed with an infection, drinking cranberry juice in addition to large amounts of water is recommended. ? Avoid caffeine, tea, and carbonated beverages. These tend to irritate the bladder. ? Avoid alcohol because it may irritate the prostate (in males). General instructions ? If you have been diagnosed with a kidney stone, follow your health care provider's instructions about straining your urine to catch the stone. ? Empty your bladder often. Avoid holding urine for long periods of time. ? If you are female: ? After a bowel movement, wipe from front to back and use each piece of toilet paper only once. ? Empty your bladder before and after sex. ? Pay attention to any changes in your symptoms. Tell your health care provider about any changes or any new symptoms. ? It is up to you to get the results of any tests. Ask your health care provider, or the department that is d (more content not included)... Normal [facility] Urine Cytology ([facility])on 0 12-01-2023 Method of Extraction Voided Normal [facility] Comment on above: Performed By: #### 1 [id number] #### [facility] [address] [facility] [place] [address] Number of Jars 1 Invalid Interpretation Code [facility] Comment on above: Performed By: #### 1 [id number] #### [facility] [address] [facility] [place] [address] Specimen Clean Catch Normal [facility] Comment on above: Performed By: #### 1 [id number] #### [facility] [address] [place] [address] Type of Service Technical Only Normal [facility] Comment on above: Performed By: #### 1 [id number] #### [facility] [address] [facility] [place] [address] Urology Office/Clinic Noteon 12-01-2023 Urology Office/Clinic Note Urology Office/Clinic Note Chief Complaint New patient, microhematuria, kidney stones HPI Staff 38 year old female new patient that was referred by Keily Colvin IMMUNOPATHOLOGIST for hematuria and microscopic nephrolithiasis. CT abdomen/pelvis done 10/24/23: 1 mm kidney stones (bilateral) Urine cx 10/04/23: positive E. coli 30,000-40,000, PROMIR 50,000-60,000. Was given augmentin 875- 125 10/06/23. 09/13/23 PROMIR <10,000. throughout patient UAs, had moderate-large blood. Dysuria: denies Incomplete bladder emptying: denies Hematuria: denies visible blood Frequency: denies Urgency: denies Nocturia: denies Stream: denies hesitancy, has a steady stream Leaking: denies Post void dripping: denies Wearing pads/ Depends: denies Urge incontinence: denies Stress incontinence: denies Incontinence without Sensory Awareness: denies Abdominal pain: some lower abdominal, pelvic pain Flank pain: denies Sexual complaints: _ Review of Systems PHQ Score Initial Depression Screen Score: 0 SCORE no fever, chills, malaise, myalgia. no rash/lesions. no chest pain, palpitations, or SOB. no abdominal pain, nausea, vomiting. no unilateral calf swelling, redness, pain Physical Exam Vitals & Measurements HR: 86(Peripheral) RR: 16 BP: 138/70 HT: 64 in HT: 163 cm WT: 72 kg WT: 158.4 lb BMI: 27.1 General: nontoxic, NAD Mouth: moist mucosa Lungs: normal respiratory effort Cardio: regular rate, good distal perfusion Abdomen: nondistended, no suprapubic distention or tenderness, no CVA tenderness Neurologic: Grossly normal Skin: No rashes or suspicious lesions Assessment/Plan no issues w frequent UTI, this year was her first in many years good bladder control - BBSQ 6 1. Microhematuria (R31.29: Other microscopic hematuria) IO UA today shows large hgb, no evidence of infection reports chronic microhematuria. had negative cysto/CÉSAR w Dr Katz in 2019. AUA microhematuria risk assessment: age FM <50, M <40 : low smoking hx <10 pack years : low RBCs on UA unknown additional risk factors : irritative LUTS no family hx cancer no occupational exposure no hx chronic indwelling foreign body in urinary tract no Discussed options. The patient is aware that a distinct etiology of the hematuria may not be clear upon conclusion of the workup. Will initiate hematuria workup to include upper urinary tract imaging (already had CT w/o con), as well as evaluation of the urinary cells with urine cytology and possible a FISH test. A cystoscopy will be scheduled to rule out lower urinary tract pathology. The rationale for this workup has been discussed, and all questions have been answered. The risks and benefits for cystoscopy have been discussed. The risks include bleeding, infection, and irritation of the bladder and urinary channel, among others. The patient, after being informed of procedural details and after questions have been answered, wishes to proceed. Full informed consent has been obtained. Will order Local anesthesia. Antibiotics have been sent to pharmacy for procedure. Ordered: cephalexin, See Instructions, 1 cap po day prior to cysto, 1 cap po following cysto, # 2 cap(s), Refills(s) 0, Pharmacy: [facility], 163, cm, 12/01/23 9:59:00 EDT, Height/Length Dosing, 72, kg, 12/01/23 9:59:00 EDT, Weight Dosing Body Mass Index (BMI) documented 3008F Current tobacco non-user 1036F Depression Screening Negative 3352F E&M of New Patient Moderate 45-59 Min 57561 Influenza immunization status assessed 1030F Medication list documented in medical record 1159F Most recent diastolic blood pressure <80 mm Hg 3078F Review of all meds by a prescribing practitioner or clinical pharmacist documented in EHR 1160F Systolic BP 130-139 mm Hg (Most Recent) 3075F Urnls Dip Stick Auto w/o Microscopy POC 85714 2. Kidney stones (N20.0: Calculus of kidney) punctate bilat stones passed 1 spontaneously last year. was very painful. requesting NSAIDs/Flomax/antie metic to have on hand in case passes another in the future so she can avoid ER. Risks/side effects discussed. Rx sent. Ordered: cephalexin, See Instructions, 1 cap po day prior to cysto, 1 cap po following cysto, # 2 cap(s), Refills(s) 0, Pharmacy: [facility], 163, cm, 12/01/23 9:59:00 EDT, Height/Length Dosing, 72, kg, 12/01/23 9:59:00 EDT, Weight Dosing Body Mass Index (BMI) documented 3008F Current tobacco non-user 1036F Depression Screening Negative 3352F E&M of New Patient Moderate 45-59 Min 70002 Influenza immunization status assessed 1030F Medication list documented in medical record 1159F Most recent diastolic blood pressure <80 mm Hg 3078F Review of all meds by a prescribing practitioner or clinical pharmacist documented in EHR 1160F Systolic BP 130-139 mm Hg (Most Recent) 3075F Urnls Dip Stick Auto w/o Microscopy POC 11910 Orders: ketorolac, See Instructions, PRN for pain, 1 tab q6h PRN stone pain. not to exceed 40 mg/day and 5 d (more content not included)... Normal [facility] Comment on above: Result Comment: Elec tronically Signed By: MELODY PANDEY, HEAVENLY Perry\.shade\Date and Time Signed: 12/01/23 10:45 EDT COVID/FLU/RSV RT-PCRon 03-09 SARS-CoV-2 (COVID-19) RNA WILBER+probe Ql (Unsp spec) Negative [facility] Other COVID/FLU/RSV RT-PCR Positive [facility] Other COVID/FLU/RSV RT-PCR Negative [facility] Other Vital Signs Date Time Vital Sign Value Performing Clinician Facility 08-08-2024 14:01-0400 Body mass index (BMI) [Ratio] 28.39 kg/m2 Keily Marii IMMUNOPATHOLOGIST Work Phone: [facility] 08-08-2024 14:01-0400 Body temperature 99 [degF] Keily Marii IMMUNOPATHOLOGIST Work Phone: [facility] 08-08-2024 14:01-0400 Body weight 75.03 kg Keily Marii IMMUNOPATHOLOGIST Work Phone: [facility] 08-08-2024 14:01-0400 Diastolic blood pressure 82 mm[Hg] Keily Marii IMMUNOPATHOLOGIST Work Phone: [facility] 08-08-2024 14:01-0400 Heart rate 78 /min Keily Marii IMMUNOPATHOLOGIST Work Phone: [facility] 08-08-2024 14:01-0400 Respiratory rate 18 /min Keily Marii IMMUNOPATHOLOGIST Work Phone: [facility] 08-08-2024 14:01-0400 SaO2% (BldA) [Mass fraction] 98 % Keily Marii IMMUNOPATHOLOGIST Work Phone: [facility] 08-08-2024 14:01-0400 Systolic blood pressure 118 mm[Hg] Keily Marii IMMUNOPATHOLOGIST Work Phone: [facility] 05-09-2024 08:58-0500 Body height 162.6 cm Ynes Spivey DO Work Phone: [facility] 05-09-2024 08:58-0500 Body mass index (BMI) [Ratio] 25.1 kg/m2 Ynes Spivey DO Work Phone: [facility] 05-09-2024 08:58-0500 Body weight 66.32 kg Ynes Spivey DO Work Phone: [facility] 05-09-2024 08:58-0500 Diastolic blood pressure 64 mm[Hg] Ynes Spivey DO Work Phone: [facility] 05-09-2024 08:58-0500 Systolic blood pressure 120 mm[Hg] Ynes Spivey DO Work Phone: [facility] 04-16-2024 10:26-0500 Body mass index (BMI) [Ratio] 27.64 kg/m2 Keily Marii IMMUNOPATHOLOGIST Work Phone: [facility] 04-16-2024 10:26-0500 Body temperature 99 [degF] Keily Marii IMMUNOPATHOLOGIST Work Phone: [facility] 04-16-2024 10:26-0500 Body weight 73.03 kg Keily Kishahannaz IMMUNOPATHOLOGIST Work Phone: [facility] 04-16-2024 10:26-0500 Diastolic blood pressure 80 mm[Hg] Keily Kishahholz IMMUNOPATHOLOGIST Work Phone: [facility] 04-16-2024 10:26-0500 Heart rate 93 /min Keily Blaisez IMMUNOPATHOLOGIST Work Phone: [facility] 04-16-2024 10:26-0500 Respiratory rate 18 /min Keily Aichholz IMMUNOPATHOLOGIST Work Phone: [facility] 04-16-2024 10:26-0500 SaO2% (BldA) [Mass fraction] 99 % Keily Kishahholz IMMUNOPATHOLOGIST Work Phone: [facility] 04-16-2024 10:26-0500 Systolic blood pressure 110 mm[Hg] Keily Kishahholz IMMUNOPATHOLOGIST Work Phone: [facility] 12-01-2023 09:53-0400 Blood Pressure Location HEAVENLY OLIVER [facility] 12-01-2023 09:53-0400 Diastolic blood pressure 70 mm[Hg] HEAVENLY MCKAYRY [facility] 12-01-2023 09:53-0400 Heart rate 86 /min HEAVENLY OLIVER [facility] 12-01-2023 09:53-0400 Respiratory rate 16 /min HEAVENLYANDRES OLIVER [facility] 12-01-2023 09:53-0400 Systolic blood pressure 138 mm[Hg] HEAVENLY OLIVER [facility] 05-09-2023 16:11-0500 Body height 162.6 cm Keily Colvin IMMUNOPATHOLOGIST Work Phone: [facility] 05-09-2023 16:11-0500 Body mass index (BMI) [Ratio] 26.78 kg/m2 Keily Marii IMMUNOPATHOLOGIST Work Phone: [facility] 05-09-2023 16:11-0500 Body temperature 98.01 [degF] Keily Marii IMMUNOPATHOLOGIST Work Phone: [facility] 05-09-2023 16:11-0500 Body weight 70.76 kg Keily Blaisez IMMUNOPATHOLOGIST Work Phone: [facility] 05-09-2023 16:11-0500 Diastolic blood pressure 78 mm[Hg] Keily Marii IMMUNOPATHOLOGIST Work Phone: [facility] 05-09-2023 16:11-0500 Heart rate 85 /min Keily Marii IMMUNOPATHOLOGIST Work Phone: [facility] 05-09-2023 16:11-0500 Respiratory rate 17 /min Keily Colvin IMMUNOPATHOLOGIST Work Phone: [facility] 05-09-2023 16:11-0500 SaO2% (BldA) [Mass fraction] 100 % Keily Colvin IMMUNOPATHOLOGIST Work Phone: [facility] 05-09-2023 16:11-0500 Systolic blood pressure 118 mm[Hg] Keily Colvin IMMUNOPATHOLOGIST Work Phone: [facility] 03-09-2022 15:55-0500 Body height 162.56 cm [facility] [employer] [facility] [employer] Other 03-09-2022 15:55-0500 Body mass index (BMI) [Ratio] 25.57 kg/m2 [facility] [employer] [facility] [employer] Other 03-09-2022 15:55-0500 Body temperature 97.6 [degF] Dana Wilson Other [facility] [employer] Other 03-09-2022 15:55-0500 Body weight 67.59 kg [facility] [employer] [facility] [employer] Other 03-09-2022 15:55-0500 Respiratory rate 18 /min [facility] [employer] [facility] [employer] Other 03-09-2022 15:55-0500 SaO2% (BldA) [Mass fraction] 97 % Dana Wilson Other [facility] [employer] Other Encounters Encounter Date Encounter Type Care Provider Facility Start: 08-23-2024 End: 08-23-2024 Bamboo flowsheet Ethle Bether TRUCK BODY BUILDER-DATA WAREHOUSING MANAGER Work Phone: [facility] Start: 08-23-2024 End: 08-23-2024 Bamboo flowsheet Ethel Bether TRUCK BODY BUILDER-DATA WAREHOUSING MANAGER Work Phone: [facility] Start: 08-23-2024 End: 08-23-2024 Office outpatient visit 25 minutes Ethel A Cj [place]-DATA WAREHOUSING MANAGER Work Phone: [facility] Comment on above: Melanocytic nevus of trunk; Lentigines; Callus of foot; Other atopic dermatitis Start: 08-08-2024 End: 08-08-2024 Bamboo flowsheet Keily Colvin IMMUNOPATHOLOGIST Work Phone: [facility] Start: 08-08-2024 End: 08-08-2024 Bamboo flowsheet Keily Marii IMMUNOPATHOLOGIST Work Phone: [facility] Start: 08-08-2024 End: 08-08-2024 Office outpatient visit 15 minutes Keily Colvin IMMUNOPATHOLOGIST Work Phone: [facility] Comment on above: Pain of upper abdome n (Primary Dx) Start: 08-08-2024 End: 08-08-2024 ambulatory KEILY MARII Not Available Start: 05-28-2024 End: 05-28-2024 ambulatory [facility] SP[facility] Start: 05-09-2024 End: 05-09-2024 Telephone encounter Ashlyn Joe LPN [facility] [place] Start: 05-09-2024 End: 05-09-2024 ambulatory YNES SPIVEY [facility] Start: 05-09-2024 End: 05-09-2024 Office outpatient new 45 minutes Ynes Spivey DO [facility] Comment on above: 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); Enlarged lymph nodes; Mood change; Perimenopause; Irregular menses; Weight gain; Family history of cancer in grandfather; Family history of uterine cancer; Family history of prostate cancer; Family history of colon cancer Start: 05-09-2024 End: [facility] Start: 04-16-2024 End: 04-16-2024 Bamboo flowsheet Keily Marii IMMUNOPATHOLOGIST Work Phone: [facility] Start: 04-16-2024 End: 04-16-2024 Bamboo flowsheet Keily Kishagerardoestephania IMMUNOPATHOLOGIST Work Phone: [facility] Start: 04-16-2024 End: 04-16-2024 Office outpatient new 45 minutes Keily Marii IMMUNOPATHOLOGIST Work Phone: [facility] Comment on above: 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); Eczema, unspecified type Start: 04-16-2024 End: 04-16-2024 ambulatory KEILY BLAISEZ Not Available Start: 03-12-2024 End: 03-12-2024 ambulatory Cindy Sánchez Facility:[facility] Start: 03-12-2024 End: 03-12-2024 Patient encounter procedure Cindy Sánchez [facility] Start: 12-01-2023 End: 12-01-2023 ambulatory HEAVENLY OLIVER Facility:[facility] Start: 12-01-2023 End: 12-01-2023 Lab Drop off HEAVENLY MCKAYRY [facility] Start: 12-01-2023 End: 12-01-2023 ambulatory HEAVENLY OLIVER Facility:[facility] Start: 12-01-2023 End: 12-01-2023 Patient encounter procedure HEAVENLY E MELODY [facility] Start: 10-31-2023 Patient encounter status Keily Marii IMMUNOPATHOLOGIST Work Phone: [facility] Start: 10-31-2023 End: 10-31-2023 ambulatory KEILY AICHHOLZ Not Available Start: 10-26-2023 ambulatory HEAVENLY MELODY Facility :[facility] Start: 08-17-2023 End: 08-17-2023 ambulatory KEILY MELOESTEPHANIA Not Available Start: 05-09-2023 End: 05-09-2023 Office outpatient visit 15 minutes Keily Marii IMMUNOPATHOLOGIST Work Phone: [facility] Comment on above: URI, acute (Primary Dx) Start: 05-09-2023 Bamboo flowsheet Keilylyudmila Colvin IMMUNOPATHOLOGIST Work Phone: [facility] Start: 05-09-2023 Bamboo flowsheet Keily Meloestephania IMMUNOPATHOLOGIST Work Phone: [facility] Start: 05-05-2022 End: 05-05-[address] NEFTALI WILSON Facility:[facility] Start: 03-09-2022 End: 03-09-2022 ambulatory Dana [facility] Other Start: 03-09-2022 Office outpatient ne w 30 minutes Dana Wilson [facility] Procedures Date Procedure Procedure Detail Performing Clinician Start: 11-07-2023 Mammography Keily Marii IMMUNOPATHOLOGIST Work Phone: Start: 05-09-2023 Microscopic observation [Identifier] in Cervix by Cyto stain Keily Colvin IMMUNOPATHOLOGIST Work Phone: Start: 06-30-2020 H/O: surgery S/P nasal septoplasty Ynes Spivey DO Work Phone: Start: 06-30-2020 History of tonsillectomy S/P tonsillectomy Ynes Spivey DO Work Phone: Tonsillectomy HEAVENLY OLIVER Plan of Treatment Date Care Activity Detail Author Start: 05-09-2026 Screening for malign ant neoplasm of cervix [facility] Start: 08-22-2025 End: 08-22-2025 Patient encounter procedure 08/22/2025 8:55 AM EDT Office Visit [facility] [address] [place] [address] Ethel Corona, TRUCK BODY BUILDER-DATA WAREHOUSING MANAGER [address] [place] [address] [facility] Start: 05-09-2025 Adult BMI Screening Adult BMI Screen ing [facility] Start: 05-09-2025 Tobacco Screening Tobacco Screening [facility] Start: 11-06-2024 Screening for malign ant neoplasm of breast Mammogram [facility] Start: 11-01-2024 End: 11-01-2024 Patient encounter procedure 11/01/2024 10:00 AM EDT Office Visit [facility] [address] [place] [address] Keily Colvin, JAIMEE [address] [place] [phone] [facility] Start: 09-19-2024 End: 09-19-2024 Patient encounter procedure 09/19/2024 9:00 AM EDT Office Visit [facility] [address] [place] [address] Keily Colvin, JAIMEE [address] [place] [phone] [facility] Start: 08-23-2024 End: 08-23-2024 Patient encounter procedure [facility] Comment on above: Arrived Start: 08-08-2024 End: 08-08-2024 Patient encounter procedure 08/08/2024 2:00 PM EDT Office Visit [facility] [address] [place] [address] Keily Colvin, IMMUNOPATHOLOGIST [address] [place] [phone] Arrived [facility] Comment on above: Arrived Start: 08-08-2024 End: 08-08-2025 US Abdomen limited US abdomen limited Imaging Routine Pain of upper abdomen Expected: 08/08/2024, Expires: 08/08/2025 [facility] Work Phone: Comment on above: Expected: 08/08/2024 , Expires: 08/08/2025 Start: 07-26-2024 End: 07-26-2024 Patient encounter procedure 07/26/2024 8:35 AM EDT Office Visit [facility] [address] [place] [phone] Ethel Corona, TRUCK BODY BUILDER-DATA WAREHOUSING MANAGER [address] [place] [address] [facility] Start: 06-01-2024 End: 06-01-2024 Patient encounter procedure 06/01/2024 8:00 AM EST Appointment [facility] [address] [place] [address] Ynes Spivey, [facility] [place], [place] [phone] [facility] Start: 05-09-2024 End: 05-09-2025 CT Pelvis W contrast IV CT pelvis with contrast Imaging Routine 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 Enlarged lymph nodes Expected: 05/09/2024, Expires: 05/09/2025 [facility] Work Phone: Comment on above: Expected: 05/09/2024 , Expires: 05/09/2025 Start: 05-09-2024 End: 05-09-2024 Patient encounter procedure 05/09/2024 10:30 AM EST Appointment [facility] [address] [place] [phone] [facility] Start: 04-16-2024 End: 04-16-2024 Patient encounter procedure 04/16/2024 10:30 AM EST Office Visit [facility] [address] [place] [address] Keily Colvin, IMMUNOPATHOLOGIST [address] [place] [phone] Arrived [facility] Comment on above: Arrived Start: 11-27-2023 COVID-19 Vaccine ( season) COVID-[address] () [facility] Start: 11-27-2023 Influenza vaccination Influenza Vacc ine [facility] Start: 05-09-2023 End: 05-09-2023 Patient encounter procedure 05/09/2023 4:00 PM EST Office Visit [facility] [address] [place] [address] Keily Colvin, IMMUNOPATHOLOGIST [address] [place] [phone] [facility] on above: Arrived Start: 11-26-2022 Influenza vaccination Influenza Vacc ine (#1) [facility] Start: 10-29-2013 Screening for malign ant neoplasm of cervix [facility] Start: 10-29-2004 Screening for malign ant neoplasm of cervix Pap Smear [facility] Start: 10-29-2002 DTaP,Tdap and Td Vaccines (1 - Tdap) DTaP,Tdap and Td Vaccines (1 - Tdap) [facility] Start: 10-29-2001 Adult BMI Follow Up Plan Adult BMI Follow Up Plan [facility] Start: 1995 Depression Screening Depression Scre ening 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 Comment on above: 1 Occurrences starti ng 05/09/2024 until 05/09/2025 End: 05-09-2025 Estradiol Estradiol Lab Routine Mood change Perimenopause Irregular menses Weight gain 1 Occurrences starting 05/09/2024 until 05/09/2025 [facility] Comment on above: 1 Occurrences starti ng 05/09/2024 until 05/09/2025 End: 05-09-2025 Follicle stimulating hormone Follicle stimulating hormone Lab Routine Mood change Perimenopause Irregular menses Weight gain 1 Occurrences starting 05/09/2024 until 05/09/2025 [facility] Comment on above: 1 Occurrences starti ng 05/09/2024 until 05/09/2025 End: 05-09-2025 Luteinizing hormone Luteinizing hormone Lab Routine Mood change Perimenopause Irregular menses Weight gain 1 Occurrences starting 05/09/2024 until 05/09/2025 [facility]: 1 Occurrences starti ng 05/09/2024 until 05/09/2025 End: 05-09-2025 Progesterone Progesterone Lab Routine Mood change Perimenopause Irregular menses Weight gain 1 Occurrences starting 05/09/2024 until 05/09/2025 [facility] Comment on above: 1 Occurrences starti ng 05/09/2024 until 05/09/2025 End: 05-09-2025 Prolactin Prolactin Lab Routine Mood change Perimenopause Irregular menses Weight gain 1 Occurrences starting 05/09/2024 until 05/09/2025 [facility] Comment on above: 1 Occurrences starti ng 05/09/2024 until 05/09/2025 End: 05-09-2025 Testosterone [Mass/volume] in Serum or Plasma Testosterone Lab Routine Mood change Perimenopause Irregular menses Weight gain 1 Occurrences starting 05/09/2024 until 05/09/2025 [facility] Comment on above: 1 Occurrences starti ng 05/09/2024 until 05/09/2025 End: 05-09-2025 Thyroid profile includes TSH FT4 Thyroid profile includes TSH FT4 Lab Routine Mood change Perimenopause Irregular menses Weight gain 1 Occurrences starting 05/09/2024 until 05/09/2025 [facility] Comment on above: 1 Occurrences starti ng 05/09/2024 until 05/09/2025 Immunizations Immunization Date Immunization Notes Care Provider Saleem coronel 09-05-2020 SARS-CoV-2 (COVID-19 ) [id number] vaccine HEAVENLY OLIVER [facility] 08-08-2020 SARS-CoV-2 (COVID-19 ) mRNA-[id number] vaccine HEAVENLY OLIVER [facility] 01-28-2015 influenza, seasonal, injectable [facility] [employer] Other 01-28-2015 influenza virus vaccine, unspecified formulation Keily Colvin NP Work Phone: [facility] NEGATED: Highlighted row has not occurred!06-04-2015 pneumococcal polysaccharide vaccine, 23 valent Dana [facility] Other [facility] Other Payers Date Payer Category Payer Medicaid [employer] [place] [employer] [id number] 2020-Present [address] [place] [id number] 2020 Medicaid (Managed Care) [employer] [id number] 2020 Medicaid [place] [employer] [employer] [id number] 1983 Unknown [id number] 593 1983 Unknown [id number]. 727 1983 Unknown [id number] [id number]. 727 1983 Unknown [id number]. 727 1983 Unknown [id number]. 1286 1983 Unknown [id number] [id number]. 1286 1983 Unknown [id number] [id number]. 1286 1983 Unknown [id number] [id number]. 1259 1983 Unknown [id number] [id number]. 9 1983 Unknown [id number] [id number]. 1259 1983 Unknown [id number]. 1259 1959 Unknown [id number] Social History Date Type Detail Facility Start: 05-09-2023 End: 06-16-2023 Sex Assigned At [facility] Other Tobacco smoking status MNIS Tobacco smoking consumption unknown [facility] Start: 1985 Sex Assigned At Not on file [facility] Start: 05-09-2023 End: 05-09-2024 Tobacco smoking status NHIS Never smoked tobacco [facility] Start: 05-09-2023 End: 05-09-2024 Tobacco use and exposure Smokeless tobacco non-user [facility] Start: 05-09-2023 End: 08-23-2024 Alcohol intake Lifetime non-drinker (finding) [facility] Start: 05-09-2023 End: 06-16-2023 History of Social function [facility] Start: 05-09-2023 Alcohol Comment caffine: 1 can of soda daily [facility] Tobacco smoking status Never [facility] Start: 10-31-2014 Sex Female (finding) [facility] Functional Status Date Assessment Result Facility 03-12-2024 Functional Status N/A [facility] 12-01-2023 Functional Status N/A [facility] Clinical Notes 03-09-2022 to 08-23-2024 MARCIA Min - 08/23/2024 9:25 AM Raimundo Colvin NP - 08/08/2024 2:19 PM OSCAR MEZA - 08/08/2024 2:00 PM Raimundo Colvin NP - 08/08/2024 2:00 PM EDTPatient Instructions Note Date & Type Note Facility 08-23-2024 History of Presen t illness Narrative Skin Check Location: Patient requests a full body skin examination Dermatologic history: no history of skin cancer, no history of atypical moles, no family history of melanoma Last visit: 1 year ago Lesions: Location: [...] benign pigmented lesions that occur on sun-exposed and sun-damaged skin. No treatment is necessary. Recommended regular [...] that can be controlled but not cured. Start TAC 0.1% bid prn when flared, hold if smooth/asymptomatic. Encouraged daily moisturizing and gentle cleansers to prevent flares. Notify office if flaring despite treatment. Related Medications triamcinolone (Kenalog) 0.1 % cream Apply to eczema on arms BID when flared, hold when clear/30 days. Do not use on the face, neck, armpits or groin Next Visit: 1 year documented in this encounter [facility] 08-08-2024 History of Presen t illness Narrative Associated Problem(s): Pain of upper abdomen Unsure if bruising, or possible small hernia Will check US first and go from there Left side lower abd ache/swelling in the last couple months. Pt takes tylenol/ IBU/ aleve for pain at times No nausea no vomiting and no diarrhea Images from the original note were not included. Louis Steven is a 38 y.o. female presents with chief complaint of GI Problem HPI: Abd pain: started a few months ago. Was carrying tray, ran into something, running the tray into the abd area Pain has still persisted, while less freq still happens Achy, no NVD, no bloody stools or urine, not worse or better with eating/bowel movements SUBJECTIVE: MEDICATIONS: Current Outpatient Medications Medication Instructions tiZANidine (ZANAFLEX) 4 mg, Oral, Every 12 hours PRN ALLERGIES: No Known Allergies REVIEW OF SYMPTOMS: Review of Systems Constitutional: Negative for appetite change, chills and fever. HENT: Negative for congestion, ear pain and sore throat. Eyes: Negative for pain, discharge, redness and visual disturbance. Respiratory: Negative for cough, shortness of breath and wheezing. Cardiovascular: Negative for chest pain, palpitations and leg swelling. Gastrointestinal: Positive for abdominal pain. Negative for blood in stool, constipation, diarrhea, nausea and vomiting. Genitourinary: Negative for difficulty urinating, dysuria and frequency. Musculoskeletal: Negative for arthralgias, back pain, joint swelling and myalgias. Skin: Negative for rash and wound. Neurological: Negative for dizziness, tremors, seizures, syncope and headaches. Psychiatric/Behavioral: Negative for behavioral problems, self-injury and suicidal ideas. The patient is not nervous/anxious. Hematological: Does not bruise/bleed easily. Endocrine: Negative for polydipsia, polyphagia and polyuria. Allergic/Immunologic: Negative for environmental allergies and food allergies. PAST MEDICAL HISTORY No past medical history on file. Past Surgical History: Procedure Laterality Date TONSILECTOMY, ADENOIDECTOMY, BILATERAL MYRINGOTOMY AND TUBES family history is not on file. OBJECTIVE: Visit Vitals Smoking Status Never Physical Exam Vitals and nursing note reviewed. Constitutional: General: She is not in acute distress. Appearance: Normal appearance. HENT: Head: Normocephalic and atraumatic. Right Ear: External ear normal. Left Ear: External ear normal. Nose: Nose normal. Mouth/Throat: Mouth: Mucous membranes are moist. Eyes: Extraocular Movements: Extraocular movements intact. Conjunctiva/sclera: Conjunctivae normal. Cardiovascular: Rate and Rhythm: Normal rate and regular rhythm. Pulses: Normal pulses. Heart sounds: Normal heart sounds. Pulmonary: Effort: Pulmonary effort is normal. Breath sounds: Normal breath sounds. No wheezing. Abdominal: General: Bowel sounds are normal. There is no distension. Palpations: Abdomen is soft. There is no mass. Tenderness: There is no abdominal tenderness (mid epigastric/left upper abd region, no palp masses noted). Musculoskeletal: General: Normal range of motion. Cervical back: Normal range of motion and neck supple. Right lower leg: No edema. Left lower leg: No edema. Skin: General: Skin is warm and dry. [...] file. Problem List Items Addressed This Visit Pain of upper abdomen - Primary Unsure if bruising, or possible small hernia Will check US first and go from there Relevant Orders US abdomen limited documented in this encounter [facility] 08-08-2024 Instructions Keily Colvin NP - 08/08/2024 2:00 PM EDT Will fax order to [facility] [phone], ext [phone] Call them if no call in 10 days documented in this encounter [facility] 05-09-2024 Miscellaneous Notes Pt called stating she has her CT W/contrast scheduled on June 01. Pt states the last time she had contrast back in 2019 she was nausea and dizzy after the test. Pt is inquiring about taking a prep before the CT scan to help prevent that. Please advise. documented in this encounter [facility] 05-09-2024 Telephone encounter Note Pt called stating she has her CT W/contrast scheduled on June 01. Pt states the last time she had contrast back in 2019 she was nausea and dizzy after the test. Pt is inquiring about taking a prep before the CT scan to help prevent that. Please advise. [facility] 05-09-2024 History of Presen t illness Narrative Subjective Patient ID: Louis Steven is a 38 y.o. female who presents today as a new patient with several concerns. Her most pressing issue, is that she has new palpable lumps in her right labia majora. She states that they are mobile and not painful. She 1st noticed them last month. They feel unchanged since that time. Patient is not currently and has never been sexually active. She also has concerns with possibly going through early menopause. She states that her mother had completed menopause by 44. Her menstrual cycles are currently short and light only lasting 2 days. She has also began to experience mood swings, and is having difficulty maintaining and or losing weight which has never been an issue for her in the past. She also has concerns with intermittent abdominal pelvic pain. She states this is not currently present, but has been a concern for her over the past year as she has extensive family history of multiple malignancies. Patient is grandfather had prostate cancer, her uncle another grandfather had colon cancer, her grandmother had uterine cancer and colon cancer. She has never had genetic cancer screening. Patient states she does also have extensive family history of thyroid issues. Chief Complaint: New mobile lumps in the right labia majora, extensive family history of malignancies, intermittent pelvic pain, mood swings, changing menses, weight gain Menstrual History: OB History 0 Para 0 Term 0 0 AB 0 Living 0 SAB 0 IAB 0 Ectopic 0 Multiple 0 Live Births 0 Patient's last menstrual period was 04/18/2024 (approximate). The following portions of the patient's history were reviewed and updated as appropriate: allergies, current medications, past family history, past medical history, past social history, past surgical history, problem list, and medication reconciliation was completed including current medication and post discharge medication. Review of Systems Constitutional: negative Respiratory: negative Cardiovascular: negative Gastrointestinal: Intermittent abdominal pain Genitourinary: To new mobile lumps in the right labia majora, occasional intermittent pelvic pain, concerned with possible early menopause, menses shorter and hooker up Behavioral/Psych: positive for mood swings Endocrine: positive for difficulty maintaining and/or a losing weight Objective BP 120/64 Ht 162.6 cm (5' 4 ) Wt 66.3 kg (146 lb 3.2 oz) LMP 04/18/2024 (Approximate) BMI 25.10 kg/m General: alert, appears stated age, and cooperative Heart: regular rate and rhythm, S1, S2 normal, no murmur, click, rub or gallop Lungs: clear to auscultation bilaterally Abdomen: soft, non-tender, without masses or organomegaly Vulva: Right labia majora, to small approximate 0.5 mobile nontender masses at the superior aspect of the right labia majora no other visual or palpable abnormalities appreciated Findings were discussed with radiologist. Imaging preferred by him was CT pelvis with contrast. 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 Enlarged lymph nodes 3. Mood change 4. Perimenopause 5. Irregular menses 6. Weight gain 7. Family history of cancer in grandfather 8. Family history of uterine cancer 9. Family history of prostate cancer 10. Family history of colon cancer Plan 1. CT pelvis with contrast per radiologist recommendation 2. CBC patient does believe she has a history of lymphoma in her family 3. FSH, LH, prolactin, progesterone, testosterone, estradiol, thyroid panel for the presumed perimenopausal symptoms. Patient also states she does have extensive family history of thyroid disease 4. We did discuss briefly gene site hereditary cancer screening. Patient would like to proceed with genetic cancer screening, she can schedule an appointment and we can collect that here at the clinic 5. 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 Pt states that it is squishy she is able to grasp onto it. It has no head on it or has opened. Pt states that it is not painful however notices pulsing in her gonzales area. Pt also states that it is not red and not hot to the touch. Pt also has a red spot since last Tuesday on her lower right back/side area she is unsure if she has gotten bit by something or not. It does itch. [place] sore and raw feeling for the first couple days as the days progressed the spot got larger and pain stopped and started itching. Pt used ring worm cream and Cortizone cream both did not work. Images from the original note were not included. Louis Steven is a 38 y.o. female presents with chief complaint of Mass (Lump in groin area) HPI: Labial lesions noticed about 10 days ago, no pain, no drainage, no pelvic pain, should be getting ready to start her menses anytime Not currently or ever been sexually active. When asked about a fever: states last evening was 99.2. I did ask her how she came to find these lesions, she states that she conducts periodic exams to make certain everything is ok. She is somewhat nervous today and tearful as she does have family history of various cancers. SUBJECTIVE: MEDICATIONS: Current Outpatient Medications Medication Instructions tiZANidine (ZANAFLEX) 4 mg, Oral, Every 12 hours PRN ALLERGIES: No Known Allergies REVIEW OF SYMPTOMS: Review of Systems Constitutional: Negative for appetite change, chills and fever. HENT: Negative for congestion, ear pain and sore throat. Eyes: Negative for pain, discharge, redness and visual disturbance. Respiratory: Negative for cough, shortness of breath and wheezing. Cardiovascular: Negative for chest pain, palpitations and leg swelling. Gastrointestinal: Negative for abdominal pain, blood in stool, constipation, diarrhea, nausea and vomiting. Genitourinary: Negative for difficulty urinating, dysuria and frequency. Labial lump Musculoskeletal: Negative for arthralgias, back pain, joint swelling and myalgias. Skin: Negative for rash and wound. Neurological: Negative for dizziness, tremors, seizures, [...] not on file. OBJECTIVE: Visit Vitals BP 110/80 (BP Location: Left arm, Patient Position: Sitting, BP Cuff Size: Adult long) Pulse 93 Temp 99 F (Temporal) Resp 18 Wt 161 lb SpO2 99% BMI 27.64 kg/m Smoking Status Never BSA 1.82 m Physical Exam Vitals and nursing note reviewed. Exam conducted with a slot floor person present. Constitutional: General: She is not in acute distress. Appearance: Normal appearance. She is not ill-appearing. HENT: Head: Normocephalic and atraumatic. Right Ear: Tympanic membrane, ear canal and external ear normal. There is no impacted cerumen. Left Ear: Tympanic membrane, ear canal and external ear normal. There is no impacted cerumen. Nose: No congestion or rhinorrhea. Comments: pallor Mouth/Throat: Mouth: Mucous membranes are moist. Pharynx: No oropharyngeal exudate or posterior oropharyngeal erythema. Eyes: Extraocular Movements: Extraocular movements intact. Conjunctiva/sclera: Conjunctivae normal. Cardiovascular: Rate and Rhythm: Normal rate and regular rhythm. Pulses: Normal pulses. Heart sounds: Normal heart sounds. Pulmonary: Effort: Pulmonary effort is normal. No respiratory distress. Breath sounds: Normal breath sounds. No wheezing. Abdominal: General: Bowel sounds are normal. There is no distension. Palpations: Abdomen is soft. There is no mass. Tenderness: There is no abdominal tenderness (mild pelvic tenderness, no rebound/gaurding). Hernia: There is no hernia in the left inguinal area or right inguinal area. Genitourinary: Exam position: Lithotomy position. Pubic Area: No rash. Matt stage (genital): 5. Labia: Right: No rash, tenderness or injury. Left: No rash, tenderness or injury. Urethra: No prolapse or urethral swelling. Comments: Noted to the right outer portion of labia minora are 2 small lumps measures approx 4mm in size, they are not tender, but are palpable. No outward signs of ulceration, no fluctance noted, no erythema noted either Musculoskeletal: General: Normal range of motion. Cervical back: Normal range of motion and neck supple. Right lower leg: No edema. Left lower leg: No edema. Lymphadenopathy: Cervical: No cervical adenopathy. Lower Body: No right inguinal adenopathy. No left inguinal adenopathy. Skin: General: Skin is warm and dry. Capillary Refill: Capillary refill takes 2 to 3 seconds. Findings: Lesion (small patch of dry scaley skin right lower lumbar approx 12 mm diameter and c/w eczema) present. No rash. Neurological: General: No focal deficit present. Mental Status: She is alert and oriented to person, place, and time. Psychiatric: Mood and Affect: Mood normal. Behavior: Behavior normal. Thought Content: Thought content normal. Judgment: Judgment normal. ASSESSMENT AND PLAN: No follow-ups on file. 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 Uncertain etiology of palpable abnormality, no s/s infection or ulceration We will refer to [facility] for evaluation of this This does not appear to represent an obvious malignancy of which I did share with the pt Relevant Orders Ambulatory referral to Obstetrics / Gynecology Eczema Warm, not hot bath May use OTC cortisone cream as directed Fu if not better documented in this encounter [facility] 04-16-2024 Instructions Keily Colvin NP - 04/16/2024 10:30 AM EST Refer to [facility], they should call you documented in this encounter [facility] 03-12-2024 Hospital Discharg e instructions Patient Education 03/12/2024 08:50:25 EU - Cystoscopy Discharge Instructions (CUSTOM) Cystoscopy Voiding after the procedure: there may be some pain, burning, urgency, frequency and blood tinged urine following the procedure. These symptoms usually resolve within 2-5 days. Drink the amount of fluid it takes to keep the urine pink to yellow or clear in color. Drinking enough water and fluids will help to ease any discomfort after your procedure. If you are having problems that seem out of the ordinary, please call. If unable to contact your physician and you feel it is an emergency, go to the nearest emergency room or call 911 Diet you may resume your normal diet. Activity you may resume your normal activities Call if you have a fever over 100 degrees. Follow Up Care 12/27/2023 14:24:42 With:Cindy Sánchez Address:Unknown When: Unknown Comments:Call for any problems. [facility] 03-12-2024 Note Patient Education Cystoscopy ??? Voiding after the procedure: there may be some pain, burning, urgency, frequency and blood tinged urine following the procedure. These symptoms usually resolve within 2-5 days. Drink the amount of fluid it takes to keep the urine pink to yellow or clear in color. Drinking enough water and fluids will help to ease any discomfort after your procedure. ??? If you are having problems that seem out of the ordinary, please call. ??? If unable to contact your physician and you feel it is an emergency, go to the nearest emergency room or call 911 ??? Diet ??? you may resume your normal diet. ??? Activity ??? you may resume your normal activities ??? Call if you have a fever over 100 degrees. [facility] 12-01-2023 Evaluation + Plan note Diagnostic Tests PendingUrine Cytology ([facility]) 12/01/23 [facility] 12-01-2023 Hospital Discharg e instructions Patient Education 12/01/2023 10:44:25 Hematuria, Adult Hematuria, Adult Hematuria is blood in the urine. Blood may be visible in the urine, or it may be identified with a test. This condition can be caused by infections of the bladder, urethra, kidney, or prostate. Other possible causes include: Kidney stones. Cancer of the urinary tract. Too much calcium in the urine. Conditions that are passed from parent to child (inherited conditions). Exercise that requires a lot of energy. Infections can usually be treated with medicine, and a kidney stone usually will pass through your urine. If neither of these is the cause of your hematuria, more tests may be needed to identify the cause of your symptoms. It is very important to tell your health care provider about any blood in your urine, even if it is painless or the blood stops without treatment. Blood in the urine, when it happens and then stops and then happens again, can be a symptom of a very serious condition, including cancer. There is no pain in the initial stages of many urinary cancers. Follow these instructions at home: Medicines Take yzqv-vnw-ysiqucr and prescription medicines only as told by your health care provider. If you were prescribed an antibiotic medicine, take it as told by your health care provider. Do not stop taking the antibiotic even if you start to feel better. Eating and drinking Drink enough fluid to keep your urine pale yellow. It is recommended that you drink 3 4 quarts (2.8 3.8 L) a day. If you have been diagnosed with an infection, drinking cranberry juice in addition to large amounts of water is recommended. Avoid caffeine, tea, and carbonated beverages. These tend to irritate the bladder. Avoid alcohol because it may irritate the prostate (in males). General instructions If you have been diagnosed with a kidney stone, follow your health care provider's instructions about straining your urine to catch the stone. Empty your bladder often. Avoid holding urine for long periods of time. If you are female: ?After a bowel movement, wipe from front to back and use each piece of toilet paper only once. ?Empty your bladder before and after sex. Pay attention to any changes in your symptoms. Tell your health care provider about any changes or any new symptoms. It is up to you to get the results of any tests. Ask your health care provider, or the department that is doing the test, when your results will be ready. Keep all follow-up visits. This is important. Contact a health care provider if: You develop back pain. You have a fever or chills. You have nausea or vomiting. Your symptoms do not improve after 3 days. Your symptoms get worse. Get help right away if: You develop severe vomiting and are unable to take medicine without vomiting. You develop severe pain in your back or abdomen even though you are taking medicine. You pass a large amount of blood in your urine. You pass blood clots in your urine. You feel very weak or like you might faint. You faint. Summary Hematuria is blood in the urine. It has many possible causes. It is very important that you tell your health care provider about any blood in your urine, even if it is painless or the blood stops without treatment. Take zgeb-oju-xzneiij and prescription medicines only as told by your health care provider. Drink enough fluid to keep your urine pale yellow. This information is not intended to replace advice given to you by your health care provider. Make sure you discuss any questions you have with your health care provider. Document Revised: 11/12/2020 Document Reviewed: 11/12/2020 [employer] Patient Education 2023 [employer]. 12/01/2023 10:44:23 Kidney Stones, Ndzp-ms-Qerk Kidney Stones Kidney stones are rock-like masses that form inside of the kidneys. Kidneys are organs that make pee (urine). A kidney stone may move into other parts of the urinary tract, including: The tubes that connect the kidneys to the bladder (ureters). The bladder. The tube that carries urine out of the body (urethra). Kidney stones can cause very bad pain and can block the flow of pee. The stone usually leaves your body through your pee. A doctor may need to take out the stone. What are the causes? Kidney stones may be caused by: Too much calcium in the body. This may be caused by too much parathyroid hormone in the blood. Uric acid crystals in the bladder. The body makes uric acid when you eat certain foods. Narrowing of one or both of the ureters. A kidney blockage that you were born with. Past surgery on the kidney or the ureters. What increases the risk? You are more likely to develop this condition if: You have had a kidney stone in the past. Other people in your family have had kidney stones. You do not drink enough water. You eat a diet that is high in protein, salt (sodium), or sugar. You are very overweight (obese). What are the signs or symptoms? Symptoms of a kidney stone may include: Pain in the side of the belly, right below the ribs. Pain usually spreads to the groin. Needing to pee often or right away. Pain when peeing. Blood in your pee. Feeling like you may vomit (nauseous). Vomiting. Fever and chills. How is this treated? Treatment depends on the size, location, and makeup of the kidney stones. The stones will often pass out of the body when you pee. You may need to: Drink more fluid to help pass the stone. ?In some cases, you may be given fluids through an IV tube at the hospital. Take medicine for pain. Change your diet to help keep kidney stones from coming back. Sometimes, you may need: A procedure to break up kidney stones using a beam of light (laser) or shock waves. Surgery to remove the kidney stones. Follow these instructions at home: Medicines Take mity-lqw-eiqoype and prescription medicines only as told by your doctor. Ask your doctor if the medicine prescribed to you requires you to avoid driving or using machinery. Eating and drinking Drink enough fluid to keep your pee pale yellow. ?You may be told to drink at least 8 10 glasses of water each day. This will help you pass the stone. If told by your doctor, change your diet. You may be told to: ?Limit how much salt you eat. ?Eat more fruits and vegetables. ?Limit how much meat, poultry, fish, and eggs you eat. Follow instructions from your doctor about what you may eat and drink. General instructions Collect pee samples as told by your doctor. You may need to collect a pee sample: ?24 hours after a stone comes out. ?8 12 weeks after a stone comes out, and every 6 12 months after that. Strain your pee every time you pee. Use the strainer that your doctor recommends. Do not throw out the stone. Keep it so that it can be tested by your doctor. Keep all follow-up visits. You may need X-rays and ultrasounds to make sure the stone has come out. How is this prevented? To prevent another kidney stone: Drink enough fluid to keep your pee pale yellow. This is the best way to prevent kidney stones. Eat healthy foods. Avoid certain foods as told by your doctor. You may be told to eat less protein. Stay at a healthy weight. Where to find more information National Kidney Foundation (NKF): kidney.org [employer] (UCF): urologyhealth.org Contact a doctor if: You have pain that gets worse or does not get better with medicine. Get help right away if: You have a fever or chills. You get very bad pain. You get new pain in your belly. You faint. You cannot pee. This information is not intended to replace advice given to you by your health care provider. Make sure you discuss any questions you have with your health care provider. Document Revised: 11/05/2022 Document Reviewed: 11/05/2022 [employer] Patient Education 2023 [employer]. Follow Up Care 10/26/2023 14:24:32 With:[facility] Address: [address] [place] [address] Business (1) When: Unknown Comments:our histopathologist will be contacting you for follow-up [facility] 12-01-2023 Note Patient Education Urology Hematuria, Adult Hematuria is blood in the urine. Blood may be visible in the urine, or it may be identified with a test. This condition can be caused by infections of the bladder, urethra, kidney, or prostate. Other possible causes include: ? Kidney stones. ? Cancer of the urinary tract. ? Too much calcium in the urine. ? Conditions that are passed from parent to child (inherited conditions). ? Exercise that requires a lot of energy. Infections can usually be treated with medicine, and a kidney stone usually will pass through your urine. If neither of these is the cause of your hematuria, more tests may be needed to identify the cause of your symptoms. It is very important to tell your health care provider about any blood in your urine, even if it is painless or the blood stops without treatment. Blood in the urine, when it happens and then stops and then happens again, can be a symptom of a very serious condition, including cancer. There is no pain in the initial stages of many urinary cancers. Follow these instructions at home: Medicines ? Take uapf-rlr-mxhfchm and prescription medicines only as told by your health care provider. ? If you were prescribed an antibiotic medicine, take it as told by your health care provider. Do not stop taking the antibiotic even if you start to feel better. Eating and drinking ? Drink enough fluid to keep your urine pale yellow. It is recommended that you drink 3?4 quarts (2.8?3.8 L) a day. If you have been diagnosed with an infection, drinking cranberry juice in addition to large amounts of water is recommended. ? Avoid caffeine, tea, and carbonated beverages. These tend to irritate the bladder. ? Avoid alcohol because it may irritate the prostate (in males). General instructions ? If you have been diagnosed with a kidney stone, follow your health care provider's instructions about straining your urine to catch the stone. ? Empty your bladder often. Avoid holding urine for long periods of time. ? If you are female: ? After a bowel movement, wipe from front to back and use each piece of toilet paper only once. ? Empty your bladder before and after sex. ? Pay attention to any changes in your symptoms. Tell your health care provider about any changes or any new symptoms. ? It is up to you to get the results of any tests. Ask your health care provider, or the department that is doing the test, when your results will be ready. ? Keep all follow-up visits. This is important. Contact a health care provider if: ? You develop back pain. ? You have a fever or chills. ? You have nausea or vomiting. ? Your symptoms do not improve after 3 days. ? Your symptoms get worse. Get help right away if: ? You develop severe vomiting and are unable to take medicine without vomiting. ? You develop severe pain in your back or abdomen even though you are taking medicine. ? You pass a large amount of blood in your urine. ? You pass blood clots in your urine. ? You feel very weak or like you might faint. ? You faint. Summary ? Hematuria is blood in the urine. It has many possible causes. ? It is very important that you tell your health care provider about any blood in your urine, even if it is painless or the blood stops without treatment. ? Take sxft-xkr-tqpkuyp and prescription medicines only as told by your health care provider. ? Drink enough fluid to keep your urine pale yellow. This information is not intended to replace advice given to you by your health care provider. Make sure you discuss any questions you have with your health care provider. Document Revised: 11/12/2020 Document Reviewed: 11/12/2020 [employer] Patient Education ? 2023 [employer]. Kidney Stones Kidney stones are rock-like masses that form inside of the kidneys. Kidneys are organs that make pee (urine). A kidney stone may move into other parts of the urinary tract, including: ? The tubes that connect the kidneys to the bladder (ureters). ? The bladder. ? The tube that carries urine out of the body (urethra). Kidney stones can cause very bad pain and can block the flow of pee. The stone usually leaves your body through your pee. A doctor may need to take out the stone. What are the causes? Kidney stones may be caused by: ? Too much calcium in the body. This may be caused by too much parathyroid hormone in the blood. ? Uric acid crystals in the bladder. The body makes uric acid when you eat certain foods. ? Narrowing of one or both of the ureters. ? A kidney blockage that you were born with. ? Past surgery on the kidney or the ureters. What increases the risk? You are more likely to develop this condition if: ? You have had a kidney stone in the past. ? Other people in your family have had kidney stones. ? You do not drink enough water. ? You eat a diet that is high in protein, salt (sodium), or (more content not included)... [facility] 05-09-2023 History of Presen t illness Narrative Associated Problem(s): URI, acute Will treat with atb, tessalon Fluids, rest Fu if not better Bad cough started Tuesday- coughing up yellow mucus Had temp of 99.9 on Tuesday. No body aches, chills, no vomiting or nausea, and no diarrhea. Pt did not test for covid or the flu Stated she had covid after . Left shoulder blade - pt stated that it looks like ring worm No sore, not itchy Pt is treating it with ring worm medication and is not helping Images from the original note were not included. Louis Steven is a 37 y.o. female presents with [...] URI, acute - Primary Will treat with andrew wiseon Fluids, rest Fu if not better Relevant Medications benzonatate (Tessalon) 200 MG capsule amoxicillin-clavulanate (Augmentin) 875-125 MG tablet documented in this encounter [facility] 03-09-2022 Evaluation note Encounter Date Diagnosis Assessment [...] treatment plan. Patient left in stable condition [employer] Other Evaluation + Plan note No data available for this section [facility] [employer] Systems evaluation note* Diagnosis URI, acute- Primary Acute upper respiratory infections of unspecified site documented in this encounter [facility] HealthcareEvaluation note* Diagnosis Acute cystitis without hematuria- Primary Participant in health and wellness plan Lumbar sprain, sequela Encounter for wellness examination in adult- Primary Encounter for screening mammogram for malignant neoplasm of breast Hematuria, microscopic Microscopic hematuria Nephrolithiasis Calculus of kidney 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 Eczema, unspecified type documented in this encounter [facility] HealthcareEvaluation note* Diagnosis 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 Enlarged lymph nodes Enlargement of lymph nodes Mood change Unspecified episodic mood disorder Perimenopause Symptomatic menopausal or female climacteric states Irregular menses Irregular menstrual cycle Weight gain Other symptoms concerning nutrition, metabolism, and development Family history of cancer in grandfather Family history of uterine cancer Family history of malignant neoplasm of genital organ, other Family history of prostate cancer Family history of malignant neoplasm of prostate Family history of colon cancer Family history of malignant neoplasm of gastrointestinal tract [facility] Acute cystitis without hematuria- Primary Participant in health and wellness plan Lumbar sprain, sequela Encounter for wellness examination in adult- Primary Encounter for screening mammogram for malignant neoplasm of breast Hematuria, microscopic Microscopic hematuria Nephrolithiasis Calculus of kidney 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 Eczema, unspecified type Pain of upper abdomen- Primary documented in this encounter [facility]* Diagnosis Acute cystitis without hematuria- Primary Participant in health and wellness plan Lumbar sprain, sequela Encounter for wellness examination in adult- Primary Encounter for screening mammogram for malignant neoplasm of breast Hematuria, microscopic Microscopic hematuria Nephrolithiasis Calculus of kidney 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 Eczema, unspecified type Pain of upper abdomen- Primary Melanocytic nevus of trunk Benign neoplasm of skin of trunk, except scrotum Lentigines Callus of foot Corns and callosities Other atopic dermatitis documented in this encounter [facility] general Narrative - Reported* Type Description Date Medical History Back Pain Medical History Eczema Surgical History wisdom teeth Surgical History tonsillectomy Surgical History septoplasty with turbinate redu [employer] Other Hospital Discharge instructions No data available for this section [facility] Instructions* Attachments The following attachments cannot be sent through Care Everywhere. * Genetic testing for breast? ovarian? prostate? and pancreatic cancer ([place]) * CT Scan, Abdomen/Pelvis ([place]) * Swollen lymph nodes in adults ([place]) * Perimenopause ([place]) [facility]ructionsNot on file documented in this encounterProMer[facility] SystemProgress note No data available for this section [facility] Purpose Family History No Family History Records Found No data available for this section No data available for this section No Family History Records Found No data available for this section No Family History Records FoundNo Family History Records FoundNo Family History Records FoundNo Family History Records Found Advance Directives No Advanced Directives Records FoundNo Advanced Directives Records FoundNo Advanced Directives Records FoundNo Advanced Directives Records FoundNo Advanced Directives Records FoundNo Advanced Directives Records Found Additional Source Comments INFORMATION SOURCE (unrecogn ized section and content) DATE CREATED AUTHOR 05/06/2022 [facility] DATE CREATED AUTHOR AUTHOR'S ORGANIZ ATION 12/06/[address] [facility] DATE CREATED AUTHOR AUTHOR'S ORGANIZ ATION 03/17/2024 [facility] DATE CREATED AUTHOR AUTHOR'S ORGANIZ ATION 05/11/2024 [facility] DATE CREATED AUTHOR AUTHOR'S ORGANIZ ATION 05/30/2024 [facility] DATE CREATED AUTHOR AUTHOR'S ORGANIZ ATION 08/09/2024 [facility] dical Specialists EPIC REASON FOR VISIT (unrecogniz ed section and content) Reason Comments Mass Lump in groin area Reason Comments Labial Lumps Right labial lumps. Noticed about 6 weeks ago. 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 Procedures [facility] OFFICE OUTPATIENT VISIT 60-74 MINS HIGH MDM [id number] (SNOMED CT) - AMB REFERRAL TO OB-CLINICAL TEAM LEAD Keily Colvin, TRUCK BODY BUILDER-DATA WAREHOUSING MANAGER [address] [place] [address] Phone: tel: fax: Keily Webber, TRUCK BODY BUILDER-DATA WAREHOUSING MANAGER [address] [place] [address] Phone: tel: fax: Referral ID Status Reason Start Date Expiration Date V isits Requested Visits Authorized [id number] Pending Review 04/16/2024 10/13/2024 1 1 Reason Comments GI Problem Reason Comments Skin Check Care Teams (unrecognized sec tion and content) Concierge Relationship Specialty Start Date End Date Landry Antoine MD [address] [place] [address] PCP - General Family Medicine 05/09/23 Keily Colvin NP [address] [place] [phone] Referring Physician Nurse Practitioner 10/18/22 Concierge Relationship Specialty Start Date End Date Landry Antoine MD [address] [place] [phone] PCP - [facility] 05/09/23 Keily Colvin NP [address] [place] [phone] Referring Physician Nurse Practitioner 10/18/22 Concierge Relationship Specialty Start Date End Date Landry Antoine MD [address] [place] [phone] PCP - [facility] Family Medicine 05/09/23 Keily Colvin NP [address] [place] [phone] [facility] 09/26/23 Keily Colvin NP Referring Physician Nurse Practitioner 10/18/22 Concierge Relationship Specialty Start Date End Date Landry Antoine MD [address] [place] [phone] PCP - General Family Medicine 05/09/23 Keily Colvin NP [address] [place] [phone] PCP - [facility] 09/26/23 Keily Colvin NP Referring Physician Nurse Practitioner 10/18/22 Concierge Relationship Specialty Start Date End Date Keily Colvin, TRUCK BODY BUILDER-DATA WAREHOUSING MANAGER PCP - General Nurse Practitioner 08/14/18 Concierge Relationship Specialty Start Date End Date Keily Colvin, TRUCK BODY BUILDER-DATA WAREHOUSING MANAGER PCP - General Nurse Practitioner 08/14/18 Concierge Relationship Specialty Start Date End Date Landry Antoine MD [address] [place] [phone] PCP - General Family Medicine 05/09/23 Keily Colvin NP [address] [place] [phone] [facility] 09/26/23 Keily Colvin NP Referring Physician Nurse Practitioner 10/18/22 Concierge Relationship Specialty Start Date End Date Landry Antoine MD [address] [place] [phone] PCP - General Family Medicine 05/09/23 Keily Colvin NP [address] [place] [phone] PCP - [facility] 09/26/23 Keily Colvin NP Referring Physician Nurse Practitioner 10/18/22 Concierge Relationship Specialty Start Date End Date Landry Antoine MD [address] [place] [phone] PCP - [facility] 05/09/23 Keily Colvin NP [address] [place] [phone] [facility] 09/26/23 Keily Colvin NP Referring Physician Nurse Practitioner 10/18/22 Concierge Relationship Specialty Start Date End Date Landry Antoine MD [address] [place] [phone] PCP - [facility] 05/09/23 Keily Colvin NP [address] [place] [phone] [facility] 09/26/23 Keily Colvin NP Referring Physician Nurse Practitioner 10/18/22 FOR RECORDS [...] BE BASED ON THE PRIMARY CLINICAL RECORDS. [facility] [employer] [facility]. provides no warranty or guarantee of the accuracy or completeness of information in this document.
== END 2024-08-24 08:44 | disposition home or self-care (01) ==
LOC: US 08:43
PROVIDERS: PCP Nurse Practitioner; Visit Provider Nurse Practitioner
DX: R10.10 Upper abdominal pain, unspecified (principal)
CPT/HCPCS: 76705

== ENCOUNTER 2024-11-14 06:52 | Outpatient (OUT) | payer OTHER, SELFPAY ==
--- NOTE | 2024-11-14 | MM_ITS ---
Patient Name: LOUIS RIDER MR#: [id number] : 1985 Exam Date: 11/14/2024 Ordering Doctor: NUSRAT MURPHY CNP RADIOLOGY REPORT PROCEDURE: MM TOMOSYNTHESIS SCREENING BI COMPARISON: MM TOMOSYNTHESIS SCREENING BI, 11/07/2023. INDICATIONS: SCREENING Calculator Name NCI Breast Cancer Risk Assessment Tool 5 Year Breast Cancer Risk 0.60% Lifetime Breast Cancer Risk 10.10% Personal Breast Cancer No Personal Ovarian Cancer No Treatments None Family Cancers Aunt-maternal with breast cancer at age 66; Grandmother-maternal with colon cancer at age ~45; Grandfather-maternal with prostate cancer at age ~45. LOCATION: [facility] BREAST COMPOSITION: There are scattered areas of fibroglandular density. FINDINGS: RIGHT BREAST: No significant suspicious finding. LEFT BREAST: No significant suspicious finding. DIAGNOSTIC CATEGORY 1--NEGATIVE. RECOMMENDATIONS: ROUTINE MAMMOGRAM AND CLINICAL EVALUATION IN 12 MONTHS. PLEASE NOTE: A NORMAL MAMMOGRAM DOES NOT EXCLUDE THE POSSIBILITY OF BREAST CANCER. A CLINICALLY SUSPICIOUS PALPABLE LUMP SHOULD BE BIOPSIED. Dictated by: Quique York MD on 11/14/2024 at 09:44 Approved by: Quique York MD on 11/14/2024 at 09:45
--- OUTSIDE RECORDS SUMMARY | 2024-11-14 06:55 | XMS_ITS | CCD ---
Author Organization [facility] Care Team Providers Care Rat Breeder Name Role Phone DR NEFTALI WILSON Admitting Unavailable NUSRAT COLVIN Primary Care Unavailable DR NEFTALI WILSON Attending Unavailable Dana Wilson Unavailable Marii OPHTHALMIC SURGICAL ASSISTANT, Keily Unavailable Landry Antoine MD Primary Care Provider KEILY COLVIN Primary Care Physician [phone] HEAVENLY OLIVER Attending Unavailable KEILY COLVIN Referring Unavailable HEAVENLY OLIVER Admitting Unavailable HEAVENLY OLIVER Attending Unavailable Cindy Sánchez Admitting Unavailable Cindy Sánchez Attending Unavailable Cindy Sánchez Referring Unavailable Marii OPHTHALMIC SURGICAL ASSISTANT, Keily Unavailable Marii OPHTHALMIC SURGICAL ASSISTANT, Keily Unavailable Marii LOADER HELPER-Keily SILVERIO Primary Care Provider YNES SPIVEY Attending Unavailable KEILY COLVIN Referring Unavailable KEILY COLVIN Primary Care Unavailable YNES SPIVEY Referring Unavailable KEILY COLVIN Primary Care Unavailable YNES SPIVEY Attending Unavailable YNES SPIVEY Referring Unavailable KEILY COLVIN Primary Care Unavailable KEILY COLVIN Attending Unavailable ETHEL CORONA Attending Unavailable KEILY COLVIN Attending Unavailable KEILY [...] oral solution (1 source) alpha-Adrenergic Agonist, Uncompetitive B-klrgvb-H-aspartat e Receptor Antagonist, Sigma-1 Agonist Start: 03-09-2022 [...] cysto, # 2 cap(s), Refills(s) 0, Pharmacy: [facility], 163, cm, 12/01/23 9:59:00 EDT, Height/Length [...] duration., # 12 tab(s), Refills(s) 0, Pharmacy: [facility], 163, cm, 12/01/23 9:59:00 EDT, Height/Length [...] Nausea/Vomiting, # 12 tab(s), Refills(s) 0, Pharmacy: [facility], 163, cm, 12/01/23 9:59:00 EDT, Height/Length [...] nausea vomiting 200 mL 06/19/2020 Active sod hwxpb-mjozeq-uhsxft bottle (NEILMED SINUS RINSE COMPLETE) packet with rinse device nasal solution (2 sources) Start: 06-19-2020 take 1 dose nasal route twice daily sod eairh-lbuvbh-hynf ez bottle (NEILMED SINUS RINSE COMPLETE) packet [...] completed) Start: 05-05-2022 take 1 capsule by [facility] once daily Flomax 0.4 mg Cap 0.4 mg = 1 cap(s), Oral, Daily, start if suspect stone passage, # 14 cap(s), Refills(s) 0, Pharmacy: [facility], 163, cm, 12/01/23 9:59:00 EDT, Height/Length Dosing, 72, kg, 12/01/23 9:59:00 EDT, Weight Dosing Start Date: 12/01/23 Status: Ordered tiZANidine 4 mg oral tablet (19 sources) Central alpha-2 Adrenergic Agonist Start: 11-01-2024 End: 12-01-2024 tiZANidine (Zanaflex) 4 MG tablet Indications: Lumbar sprain, sequela Take 1 tablet (4 mg) by mouth as needed at bedtime for muscle spasms 30 tablet 1 11/01/2024 12/01/2024 Active Start: 08-17-2023 End: 08-23-2024 take 1 tablet [...] completed) triamcinolone acetonide 1 mg/ml topical cream (8 sources) Corticosteroid Start: 08-23-2024 triamcinolone (Kenalog) 0.1 [...] neoplasm of digestive organs] Onset: 05-09-2024 Episodic Sprains and strains (17 sources) Lumbar sprain; Translations: [Sprain of ligaments of lumbar spine, initial encounter] Onset: 08-17-2023 08-17-2023 Episodic Unclassified (1 source) Labial Lumps Onset: 05-09-2024 Past or Other Problems Problem Classification Problem Date Documented Date Episodic/Chronic Allergic reactions (16 sources) Eczema; Translations: [Dermatitis, unspecified] Onset: 04-16-2024 04-16-2024 Episodic Calculus of urinary tract (19 sources) Kidney stone; Translations: [Calculus of kidney] Onset: 10-25-2023 Episodic Chronic obstructive pulmonary disease and bronchiectasis (15 sources) Bronchitis; Translations: [Bronchitis, not specified as acute or chronic] Onset: 06-16-2023 Resolved: 08-17-2023 08-17-2023 Episodic Genitourinary symptoms and ill-defined conditions (20 sources) Microscopic hematuria; Translations: [Other microscopic hematuria] Onset: 09-26-2018 05-09-2023 Episodic Mood disorders (2 sources) Mood disorders Onset: 08-14-2020 08-14-2020 Neoplasms of unspecified nature or uncertain behavior (20 sources) 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; Translations: [Neoplasm of uncertain behavior of other specified female genital organs] Onset: 04-16-2024 04-16-2024 Episodic Other screening for suspected conditions (not mental disorders or infectious disease) (20 sources) Measurement finding above reference range; Translations: [Other specified abnormal findings of blood chemistry] Onset: 06-16-2023 06-16-2023 Episodic Other upper respiratory disease (2 sources) Nasal congestion; Translations: [Nasal congestion] Onset: 04-01-2020 04-01-2020 Episodic Other upper respiratory infections (19 sources) Acute upper respiratory infection; Translations: [Acute upper respiratory infection, unspecified] Onset: 05-09-2023 Resolved: 06-16-2023 05-09-2023 Episodic Residual codes; unclassified (15 sources) Patient participation status; Translations: [Other specified health status] Onset: 08-17-2023 08-17-2023 Episodic Urinary tract infections (20 sources) Acute cystitis; Translations: [Acute cystitis without hematuria] Onset: 08-17-2023 Resolved: 04-16-2024 04-16-2024 Episodic Results Test Name Value Interpretation Reference Range Facility US ABDOMEN LIMITEDon [address] [place] [address] Ultrasound Report Signed Patient: LOUIS STEVEN MR#: [id number] : 1985 Acct:[id number] Age/Sex: 38 / F ADM Date: 08/24/24 Loc: US Attending Dr: Keily Colvin NP Ordering Physician: Keily Colvin NP Date of Service: 08/24/24 Procedure(s): US abdomen limited Accession Number(s): [id number] cc: Keily Colvin NP [place] [id number] Patient Name: LOUIS STEVEN MRN: [id number] date: 1985 Sex: F Assigned Patient Location: US Current Patient Location: US Accession/Order Number: [id number] Exam Date: 08/24/2024 10:00 Report Date: 08/24/2024 10:03 At the request of: KEILY COLVIN NP Procedure: US abdomen limited LIMITED ABDOMINAL ULTRASOUND: CLINICAL HISTORY: Mid abdominal pain for the past 2-3 months following injury COMPARISON: CT 10/21/2023 Real-time ultrasound evaluation of the sites of patient's pain was performed. No subcutaneous cystic or solid masses are noted. No ventral hernias were demonstrated. No obvious abnormalities are visualized within the underlying abdominal cavity in the field of view. US/US abdomen limited IMPRESSION: NO ULTRASOUND ABNORMALITIES TO ACCOUNT FOR PATIENT'S SYMPTOMS. CLINICAL MANAGEMENT IS RECOMMENDED. CT COULD BE CONSIDERED IF FURTHER IMAGING EVALUATION IS WARRANTED. Impression dictated by: Kita Garcia M.D. 08/24/2024 10:03 AM Dictation Location: [place] [address] Electronically authenticated by: [id number] Y Date: 08/24/2024 10:03 Dictated By: Kita Garcia M.D. Signed By: 08/24/24 1006 DD/ 1003 TD/TT: Levi Maker: [employer] Rad[facility], Radiologist, - 08/24/2024 The [place] [id number] Ultrasound Report Signed Patient: LOUIS STEVEN MR#: [id number] : 1985 Acct:[id number] Age/Sex: 38 / F ADM Date: 08/24/24 Loc: US Attending Dr: Keily Colvin NP Ordering Physician: Keily Colvin NP Date of Service: 08/24/24 Procedure(s): US abdomen limited Accession Number(s): [id number] cc: Keily Colvin NP The [address] [address] Patient Name: LOUIS STEVEN MRN: [facility] [facility] [facility] [employer]:[id number] date: 1985 Sex: F Assigned Patient Location: US Current Patient Location: US Accession/Order Number: [id number] Exam Date: 08/24/2024 10:00 Report Date: 08/24/2024 10:03 At the request of: KEILY COLVIN NP Procedure: US abdomen limited LIMITED ABDOMINAL ULTRASOUND: CLINICAL HISTORY: Mid abdominal pain for the past 2-3 months following injury COMPARISON: CT 10/21/2023 Real-time ultrasound evaluation of the sites of patient's pain was performed. No subcutaneous cystic or solid masses are noted. No ventral hernias were demonstrated. No obvious abnormalities are visualized within the underlying abdominal cavity in the field of view. US/US abdomen limited IMPRESSION: NO ULTRASOUND ABNORMALITIES TO ACCOUNT FOR PATIENT'S SYMPTOMS. CLINICAL MANAGEMENT IS RECOMMENDED. CT COULD BE CONSIDERED IF FURTHER IMAGING EVALUATION IS WARRANTED. Impression dictated by: Kita Garcia M.D. 08/24/2024 10:03 AM Dictation Location: [place] [address] Electronically authenticated by: [id number] Y Date: 08/24/2024 10:03 Dictated By: Kita Garcia M.D. Signed By: 08/24/24 1006 DD/ 1003 TD/TT: Levi Maker: [facility] Study observation (narrative) [facility] ABDOMEN LIMITEDOrdered By : Radiologist Radiology on 08-24-2024 [employer] ([email or web address]) e Work Phone: CT PELVIS W CONTon CT PELVIS W [...] Mina Combs MD on 05/29/2024 6:[address] [facility] AND AUTO DIFFon 05-09-19 25 ABSOLUTE BASOPHIL 0.0 X10E9/L Normal 0.0-0.2 [facility] Comment on above: Performed By: #### C BCA, 2986-8, 2839-9, THYR, 2842-3, 40504- 2, 73203-1, 2243-4 #### [facility] ([id number]) [address], [address] [place] [address] ABSOLUTE NEUTROPHIL 3.3 X10E9/L Normal 1.5-6.6 [facility] Comment on above: Performed By: #### C BCA, 2986-8, 2839-9, THYR, 2842-3, 50660- 2, 03519-7, 2243-4 #### [facility] ([id number]) [address], [address] [place] [address] Basophils/100 WBC (Bld) 0.6 % Normal [facility] Comment on above: Performed By: #### C BCA, 2986-8, 2839-9, THYR, 2842-3, 29168- 2, 17930-9, 2243-4 #### [facility] ([id number]) [address], [address] [place] [address] Eosinophils (Bld) [#/Vol] 0.0 10*3/uL Normal 0.0-0.4 [facility] Comment on above: Performed By: #### C BCA, 2986-8, 2839-9, THYR, 2842-3, 46539- 2, 52082-5, 2243-4 #### [facility] ([id number]) [address], [address] [place] [address] Eosinophils/100 WBC (Bld) 0.6 % Normal [facility] Comment on above: Performed By: #### C BCA, 2986-8, 2839-9, THYR, 2842-3, 21776- 2, 73242-0, 2243-4 #### [facility] ([id number]) [address] [address] [place] [address] Erythrocyte distribution width (RBC) [Ratio] 13.9 % Normal 11.5-15.0 [facility] Comment on above: Performed By: #### C BCA, 2986-8, 2839-9, THYR, 2842-3, 09638- 2, 07527-6, 3-4 #### [facility] ([id number]) [address] [address] [place] [address] Hematocrit (Bld) [Volume fraction] 41.8 % Normal 35-47 [facility] Comment on above: Performed By: #### C BCA, 2986-8, 2839-9, THYR, 2842-3, 41024- 2, 52623-4, 3-4 #### [facility] ([id number]) [address] [address] [place] [address] Hemoglobin (Bld) [Mass/Vol] 14.3 g/dL Normal 11.7-15.5 [facility] Comment on above: Performed By: #### C BCA, 2986-8, 2839-9, THYR, 2842-3, 12292- 2, 53182-8, 2242-4 #### [facility] ([id number]) [address] [address] [place] [address] Lymphocytes (Bld) [#/Vol] 1.2 10*3/uL Normal 1.0-3.5 [facility] Comment on above: Performed By: #### C BCA, 2986-8, 2839-9, THYR, 2842-3, 25150- 2, 27547-5, 2243-4 #### [facility] ([id number]) [address] [address] [place] [address] Lymphocytes/100 WBC (Bld) 22.8 % Normal [facility] Comment on above: Performed By: #### C BCA, 2986-8, 2839-9, THYR, 2842-3, 67056- 2, 00498-0, 2243-4 #### [facility] ([id number]) [address], [address] [place] [address] MCH (RBC) [Entitic mass] 32.3 pg Normal 27-34 [facility] Comment on above: Performed By: #### C BCA, 2986-8, 2839-9, THYR, 2842-3, 92655- 2, 81230-9, 2243-4 #### [facility] ([id number]) [address] [address] [place] [address] MCHC (RBC) [Mass/Vol] 34.1 g/dL Normal 32-36 [facility] Comment on above: Performed By: #### C BCA, 2986-8, 2839-9, THYR, 2842-3, 20281- 2, 93284-8, 2242-4 #### [facility] ([id number]) [address] [address] [place] [address] MCV (RBC) [Entitic vol] 95 fL Normal 80-100 [facility] Comment on above: Performed By: #### C BCA, 2986-8, 2839-9, THYR, 2842-3, 88717- 2, 19802-2, 2242-4 #### [facility] ([id number]) [address] [address] [place] [address] Monocytes (Bld) [#/Vol] 0.7 10*3/uL Normal 0-0.9 [facility] Comment on above: Performed By: #### C BCA, 2986-8, 2839-9, THYR, 2842-3, 78849- 2, 03933-5, 2243-4 #### [facility] ([id number]) [address] [address] [place] [address] Monocytes/100 WBC (Bld) 12.8 % Normal [facility] Comment on above: Performed By: #### C BCA, 2986-8, 2839-9, THYR, 2842-3, 71338- 2, 49121-4, 2243-4 #### [facility] ([id number]) [address], [address] [place] [address] Neutrophils/100 WBC (Bld) 63.2 % Normal [facility] Comment on above: Performed By: #### C BCA, 2986-8, 2839-9, THYR, 2842-3, 34169- 2, 27785-8, 2243-4 #### [facility] ([id number]) [address], [address] [place] [address] Platelet mean volume (Bld) [Entitic vol] 7.5 fL Normal 7-12 [facility] Comment on above: Performed By: #### C BCA, 2986-8, 2839-9, THYR, 2842-3, 74179- 2, 71591-0, 2243-4 #### [facility] ([id number]) [address], [address] [place] [address] Platelets (Bld) [#/Vol] 342 10*3/uL Normal 150-450 [facility] Comment on above: Performed By: #### C BCA, 2986-8, 2839-9, THYR, 2842-3, 96483- 2, 83197-5, 2243-4 #### [facility] ([id number]) [address], [address] [place] [address] RBC COUNT 4.41 X10E12/L Normal 3.80-5.20 [facility] Comment on above: Performed By: #### C BCA, 2986-8, 2839-9, THYR, 2842-3, 03697- 2, 12368-2, 2243-4 #### [facility] ([id number]) [address] [place] [address], [address] [place] [address] WBC (Bld) [#/Vol] 5.2 10*3/uL Normal 4.0-11.0 [facility] Comment on above: Performed By: #### C BCA, 2986-8, 2839-9, THYR, 2842-3, 99619- 2, 37251-3, 2243-4 #### [facility] ([id number]) [address] [place] [address], [address] [place] [address] E2 [Mass/Vol]on 05-09-2024 ESTRADIOL 133.4 pg/mL Normal [facility] Comment on above: Result Comment: NON- FEMALES [...] #### C BCA, 2986-8, 2839-9, THYR, 2842-3, 81224-2, 95138-3, 2242-4 #### [facility] ([id number]) [address] [place] [address], [address] [place] [address] Follitropin Qnon 05-09-2024 FOLLICLE STIM HORMONE 2.2 mIU/mL Normal [facility] Comment on above: Result Comment: NORMAL FEMALE Luteal 1.8-5.1 mIU/mL Follicular 3.8-8.8 mIU/mL Mid Cycle 4.5-22.5 mIU/mL [place] 16.7-113.6 mIU/mL Performed By: ###Duke Cao BCA, 2986-8, 2839-9, THYR, 2842-3, 89739-6, 29118-2, 2243-4 #### [facility] ([id number]) [address] [facility] [place] [address] Lutropin Qnon 05-09-2024 LUTEINIZING HORMONE 1.9 mIU/mL Normal [facility] Comment on above: Result Comment: NORMAL FEMALE Follicular 2.1-10.9 mIU/mL Mid Cycle 19.2-103 mIU/mL Luteal 1.2-12.9 mIU/mL [place] 10.9-58.6 mIU/mL Performed By: ##Tabby Cao BCA, 2986-8, 2839-9, THYR, 2842-3, 91178-4, 65141-7, 2243-4 #### [facility] ([id number]) [address], [address] [place] [address] Progesterone [Mass/Vol]on PROGESTERONE 11.6 ng/mL Normal [facility] Comment on above: Result Comment: FEMALES: 1st Tri: 4.7-50.7 ng/ml 2nd Tri: 19.4-45.3 ng/ml MENSTRUATING FEMALES: Follicular: 0.3-1.5 ng/ml Mid Luteal: 5.2-18.6 ng/ml Post [place]: <0.1-0.8 ng/ml Performed By: #### C BCA, 2986-8, 2839-9, THYR, 2842-3, 87799-9, 94451-8, 2243-4 #### [facility] ([id number]) [address], [address] [place] [address] Prolactin [Mass/Vol]on 05-09 PROLACTIN 5.8 ng/mL Normal 3.3-26.7 [facility] Comment on above: Performed By: #### C BCA, 2986-8, 2839-9, THYR, 2842-3, 37713- 2, 51369-7, 2243-4 #### [facility] ([id number]) [address], [address] [place] [address] THYROID PROFILEon 05-09-2024 Free T4 [Mass/Vol] 0.83 ng/dL Normal 0.61-1.60 [facility] Comment on above: Performed By: #### C BCA, 2986-8, 2839-9, THYR, 2842-3, 62836- 2, 14722-5, 2243-4 #### [facility] ([id number]) [address], [address] [place] [address] TSH 1.07 uIU/mL Normal 0.49-4.67 [facility] Comment on above: Performed By: #### C BCA, 2986-8, 2839-9, THYR, 2842-3, 57458- 2, 12364-6, 2243-4 #### [facility] ([id number]) [address], [address] [place] [address] Testosterone [Mass/Vol]on TESTOSTERONE 0.42 ng/mL Normal 0.00-0.70 [facility] Comment on above: Performed By: #### C BCA, 2986-8, 2839-9, THYR, 2842-3, 43814- 2, 61333-9, 2243-4 #### [facility] ([id number]) [address] [place] [address], [address] [place] [address] Inpatient Patient Summaryon 03-12-2024 Inpatient Patient Summary Inpatient Patient Summary [address] [address] Clinical Summary Person Information Name: LOUIS STEVEN Age: 38 Years : 1985 Sex: Female PCP: KEILY COLVIN CNP Marital Status: Single Race: White Ethnicity: Non- or Language: Cape Verdean Visit Id: Visit Reason: MICROHEMATURIA Speciality: Acuity: Enc Type: Outpatient Med Service: Surgery Arrival: 03/12/2024 07:53:10 Discharge: Dispo Type: Address: [address] [place] [id number] Provider Notes: Diagnosis: Microhematuria Problems Active Kidney [...] Information: EU - Cystoscopy Discharge Instructions (CUSTOM) [facility] Main OR Intraoperative Recor don 03-12-2024 Main OR Intraoperative Record Main OR Intraoperative Record IntraOp Document Type FTURO Summary Primary Physician: Cindy Sánchez MD Finalized Date/Time: 03/12/24 08:47:14 Pt. Name: EVETTETankLOUIS SHANE/Sex: 1985 Female Med Rec #: [id number] Physician: Cindy Sánchez MD Financial #: [id number] Pt. Type: O Room/Bed: / Admit/Disch: 03/12/24 [...] Performed Surgeon - Primary Scrub - Primary Automobile Upholstery Trim Installer - Primary Time In 03/12/24 08:27:00 03/12/24 [...] VAGINA Prep Agents Betasept Skin. Condition Intact, [place], Warm, & Description UNCHANGED Dry Additional None [...] By: Anjana Gilmore Ii 03/12/24 08:47 Normal [facility] Main OR Preoperative Recordo n 03-12-2024 Main OR Preoperative Record Main OR Preoperative Record Holding Area Document Type FTURO Summary Primary Physician: Cindy Sánchez MD Finalized Date/Time: 03/12/24 08:27:54 Pt. Name: EVETTETankLOUIS SHANE./Sex: 1985 Female Med Rec #: [id number] Physician: Cindy Sánchez MD Financial #: [id number] Pt. Type: O Room/Bed: / Admit/Disch: 03/12/24 [...] Complaints of Pain: No Skin Integrity Intact, [place], Warm, & Dry Vitals - EU Blood Pressure 146/96 Pulse 75 bpm Respirations 20 br/min SPO2 98 % Additional None RN Reviewed Yes Specimens Collected Last Modified By: Anjana Gilmore Ii 03/12/24 08:27:52 Finalized By: Anjana Gilmore Ii Document Signatures Signed By: Indiahoma Shannan PERRY 03/12/24 08:10 Anjana Gilmore Ii 03/12/24 08:27 Normal [facility] Operative Reporton Operative Report Operative Report Patient: LOUIS STEVEN Age: 38 years Sex: Female : 1985 Associated Diagnoses: None Author: Cindy Sánchez MD Procedure Operative Information Details: Date/ Time: 03/12/2024 08:50:00. Pre-Op Dx: Microhematuria (PJS59-SF R31.29, Discharge, Medical). Post-Op Dx: Same. Anesthesia [...] familial microscopic hematuria. Follow-up as needed. Normal [facility] Comment on above: Result Comment: Elec tronically Signed By: Cindy Sánchez MD\.br\Date and Time Signed: 03/12/24 08:54 EST Outpatient Surgery Discharge Instructionon 03-12-2024 Outpatient Surgery Discharge Instruction Outpatient Surgery Discharge Instruction [place] [id number] Patient Discharge Instructions PERSON INFORMATION Name: LOUIS [...] to serve you. Thank you for choosing [facility] Normal [facility] Urine Cytology ([facility])on 12-12-2023 Microscopic exam Cytology (U) [Interp] Diagnosis Info Invalid Interpretation Code [facility] Comment on above: Result Comment: A:Ur ine,Clean Catch:Voided Interpretation - Adequate cellularity for evaluation. MicroScopic Description - Adequacy - Adequate Gross Description Site ID:A color Yellow fixative Alcohol Specimen designated Clean Catch received in alcohol preservative and labeled with the patient???s name, consists of 50ml clear yellow fluid. Electronically signed by : on: 12/12/2023 10:50:09 Performed By: #### 1 [id number] #### [facility] [address] [place] [address] Ambulatory Visit Summaryon 0 12-01-2023 Ambulatory Visit Summary Ambulatory Visit Summary LOUIS STEVEN :1985 Visit Date:12/01/2023 Ambulatory Visit Instructions Your Diagnosis Microhematuria Kidney stones Your Care Team Attending Physician - MELODY HEAVENLY PANDEY Primary Care Physician - KEILY COLVIN CNP [...] Appointments Follow Up with [facility] When: Comments: our concert pianist will be contacting you for follow-up Where: [address] [place] [address] Business (1) Medications What How Much When Why Instructions New cephalexin (Keflex 500 mg Cap) See instructions Microhematuria Kidney stones 1 cap po day prior to cysto, 1 cap po following cysto Pickup at [facility] New ketorolac (ketorolac 10 mg Tab) See instructions 1 tab q6h PRN stone pain. not to exceed 40 mg/ day and 5 days duration. Pickup at [facility] New ondansetron (Zofran 4 mg Tab) 1 Tablets By Mouth Every 6 hours as needed for Nausea/Vomiting Pickup at [facility] New tamsulosin (Flomax 0.4 mg Cap) 1 Capsules By Mouth Every day start if suspect stone passage Pickup at [facility] Unchanged tizanidine (tiZANidine 4 mg Tab) 2 Tablets By Mouth 2 times a day take 1 tablet by mouth every 12 hours if needed for muscle spasm for up to 12 DAYS Contact prescribing physician if questions or concerns Pharmacy Information [facility]: [address] [place] [id number] [phone] Allergies No Known Allergies Problems Ongoing - [...] these instructions at home: Medicines ? Take ltqs-sga-yulebqj and prescription medicines only as told by [...] is d (more content not included)... Normal [facility] Urine Cytology ([facility])on 0 12-01-2023 Method of Extraction Voided Normal [facility] Comment on above: Performed By: #### 1 [id number] #### [facility] [address] [place] [address] Number of Jars 1 Invalid Interpretation Code [facility] Comment on above: Performed By: #### 1 [id number] #### [facility] [address] [place] [address] Specimen Clean Catch Normal [facility] Comment on above: Performed By: #### 1 [id number] #### [facility] [address] [place] [address] Type of Service Technical Only Normal [facility] Comment on above: Performed By: #### 1 [id number] #### [facility] [address] [place] [address] Urology Office/Clinic Noteon 12-01-2023 Urology Office/Clinic Note Urology Office/Clinic Note Chief Complaint New patient, microhematuria, kidney stones HPI Staff 38 year old female new patient that was referred by Keily Colvin OPHTHALMIC SURGICAL ASSISTANT for hematuria and microscopic nephrolithiasis. CT abdomen/pelvis [...] cysto, # 2 cap(s), Refills(s) 0, Pharmacy: [facility], 163, cm, 12/01/23 9:59:00 EDT, Height/Length Dosing, 72, kg, 12/01/23 9:59:00 EDT, Weight Dosing Body Mass Index (BMI) documented 3008F Current tobacco non-user 1036F Depression Screening Negative 3352F E&M of New Patient Moderate 45-59 Min 37964 Influenza immunization status assessed 1030F Medication list documented in medical record 1159F Most recent diastolic blood pressure <80 mm Hg 3078F Review of all meds by a prescribing practitioner or clinical pharmacist documented in EHR 1160F Systolic BP 130-139 mm Hg (Most Recent) 3075F Urnls Dip Stick Auto w/o Microscopy POC 81078 2. Kidney stones (N20.0: Calculus of kidney) [...] cysto, # 2 cap(s), Refills(s) 0, Pharmacy: [facility], 163, cm, 12/01/23 9:59:00 EDT, Height/Length Dosing, 72, kg, 12/01/23 9:59:00 EDT, Weight Dosing Body Mass Index (BMI) documented 3008F Current tobacco non-user 1036F Depression Screening Negative 3352F E&M of New Patient Moderate 45-59 Min 26168 Influenza immunization status assessed 1030F Medication list documented in medical record 1159F Most recent diastolic blood pressure <80 mm Hg 3078F Review of all meds by a prescribing practitioner or clinical pharmacist documented in EHR 1160F Systolic BP 130-139 mm Hg (Most Recent) 3075F Urnls Dip Stick Auto w/o Microscopy POC 28248 Orders: ketorolac, See Instructions, PRN for pain, 1 tab q6h PRN stone pain. not to exceed 40 mg/day and 5 d (more content not included)... Normal [facility] Comment on above: Result Comment: Elec tronically Signed By: MELODY PANDEY, HEAVENLY Scott\Date and Time Signed: 12/01/23 10:45 EDT COVID/FLU/RSV RT-PCRon 03-09 SARS-CoV-2 (COVID-19) RNA WILBER+probe Ql (Unsp spec) Negative [employer] Other COVID/FLU/RSV RT-PCR Positive [employer] Other COVID/FLU/RSV RT-PCR Negative [employer] Other Vital Signs Date Time Vital Sign Value Performing Clinician Facility 11-01-2024 10:04-0400 Body mass index (BMI) [Ratio] 27.94 kg/m2 Keily Meloestephania OPHTHALMIC SURGICAL ASSISTANT Work Phone: [facility] 11-01-2024 10:04-0400 Body temperature 97.81 [degF] Keily Colvin OPHTHALMIC SURGICAL ASSISTANT Work Phone: [facility] 11-01-2024 10:04-0400 Body weight 73.85 kg Keily Colvin OPHTHALMIC SURGICAL ASSISTANT Work Phone: [facility] 11-01-2024 10:04-0400 Diastolic blood pressure 80 mm[Hg] Keily Colvin OPHTHALMIC SURGICAL ASSISTANT Work Phone: [facility] 11-01-2024 10:04-0400 Heart rate 77 /min Keily Colvin OPHTHALMIC SURGICAL ASSISTANT Work Phone: [facility] 11-01-2024 10:04-0400 SaO2% (BldA) [Mass fraction] 98 % Keily Colvin OPHTHALMIC SURGICAL ASSISTANT Work Phone: [facility] 11-01-2024 10:04-0400 Systolic blood pressure 118 mm[Hg] Keily Meloestephania OPHTHALMIC SURGICAL ASSISTANT Work Phone: [facility] 09-19-2024 09:04-0400 Body mass index (BMI) [Ratio] 27.94 kg/m2 Keily Colvin OPHTHALMIC SURGICAL ASSISTANT Work Phone: [facility] 09-19-2024 09:04-0400 Body temperature 97.81 [degF] Keily Kishahholz OPHTHALMIC SURGICAL ASSISTANT Work Phone: [facility] 09-19-2024 09:04-0400 Body weight 73.85 kg Keily Aichholz OPHTHALMIC SURGICAL ASSISTANT Work Phone: [facility] 09-19-2024 09:04-0400 Diastolic blood pressure 82 mm[Hg] Keily Aichholz OPHTHALMIC SURGICAL ASSISTANT Work Phone: [facility] 09-19-2024 09:04-0400 Heart rate 89 /min Keily Aichholz OPHTHALMIC SURGICAL ASSISTANT Work Phone: [facility] 09-19-2024 09:04-0400 Respiratory rate 18 /min Keily Aichholz OPHTHALMIC SURGICAL ASSISTANT Work Phone: [facility] 09-19-2024 09:04-0400 SaO2% (BldA) [Mass fraction] 96 % Keily Aichholz OPHTHALMIC SURGICAL ASSISTANT Work Phone: [facility] 09-19-2024 09:04-0400 Systolic blood pressure 110 mm[Hg] Keily Aichholz OPHTHALMIC SURGICAL ASSISTANT Work Phone: [facility] 08-08-2024 14:01-0400 Body mass index (BMI) [Ratio] 28.39 kg/m2 Keily Aichholz OPHTHALMIC SURGICAL ASSISTANT Work Phone: [facility] 08-08-2024 14:01-0400 Body temperature 99 [degF] Keily Aichholz OPHTHALMIC SURGICAL ASSISTANT Work Phone: [facility] 08-08-2024 14:01-0400 Body weight 75.03 kg Keily Aichholz OPHTHALMIC SURGICAL ASSISTANT Work Phone: [facility] 08-08-2024 14:01-0400 Diastolic blood pressure 82 mm[Hg] Keily Aichholz OPHTHALMIC SURGICAL ASSISTANT Work Phone: [facility] 08-08-2024 14:01-0400 Heart rate 78 /min Keily Aichholz OPHTHALMIC SURGICAL ASSISTANT Work Phone: [facility] 08-08-2024 14:01-0400 Respiratory rate 18 /min Keily Kishahholshelton OPHTHALMIC SURGICAL ASSISTANT Work Phone: [facility] 08-08-2024 14:01-0400 SaO2% (BldA) [Mass fraction] 98 % Keily Meloestephania OPHTHALMIC SURGICAL ASSISTANT Work Phone: [facility] 08-08-2024 14:01-0400 Systolic blood pressure 118 mm[Hg] Keily Beardangie OPHTHALMIC SURGICAL ASSISTANT Work Phone: [facility] 05-09-2024 08:58-0500 Body height 162.6 cm Ynes Spivey DO Work Phone: [facility] [employer] [facility] 05-09-2024 08:58-0500 Body mass index (BMI) [Ratio] 25.1 kg/m2 Nyes Spivey DO Work Phone: [facility] [employer] [facility] 05-09-2024 08:58-0500 Body weight 66.32 kg Ynes Spivey DO Work Phone: [facility] 05-09-2024 08:58-0500 Diastolic blood pressure 64 mm[Hg] Ynes Spivey DO Work Phone: [facility] [employer] 05-09-2024 08:58-0500 Systolic blood pressure 120 mm[Hg] Ynes Spivey DO Work Phone: [facility] [employer] [facility] 04-16-2024 10:26-0500 Body mass index (BMI) [Ratio] 27.64 kg/m2 Keily Marii OPHTHALMIC SURGICAL ASSISTANT Work Phone: [facility] 04-16-2024 10:26-0500 Body temperature 99 [degF] Keily Beardangie OPHTHALMIC SURGICAL ASSISTANT Work Phone: [facility] 04-16-2024 10:26-0500 Body weight 73.03 kg Keily Marii OPHTHALMIC SURGICAL ASSISTANT Work Phone: [facility] 04-16-2024 10:26-0500 Diastolic blood pressure 80 mm[Hg] Keily Marii OPHTHALMIC SURGICAL ASSISTANT Work Phone: [facility] 04-16-2024 10:26-0500 Heart rate 93 /min Keily Marii OPHTHALMIC SURGICAL ASSISTANT Work Phone: [facility] 04-16-2024 10:26-0500 Respiratory rate 18 /min Keily Marii OPHTHALMIC SURGICAL ASSISTANT Work Phone: [facility] 04-16-2024 10:26-0500 SaO2% (BldA) [Mass fraction] 99 % Keilylyudmila Colvin OPHTHALMIC SURGICAL ASSISTANT Work Phone: [facility] 04-16-2024 10:26-0500 Systolic blood pressure 110 mm[Hg] Keily Marii OPHTHALMIC SURGICAL ASSISTANT Work Phone: [facility] 12-01-2023 09:53-0400 Blood Pressure Location HEAVENLY MELODY [facility] 12-01-2023 09:53-0400 Diastolic blood pressure 70 mm[Hg] HEAVENLY MELODY [facility] 12-01-2023 09:53-0400 Heart rate 86 /min HEAVENLY MELODY [facility] 12-01-2023 09:53-0400 Respiratory rate 16 /min HEAVENLY MELODY [facility] 12-01-2023 09:53-0400 Systolic blood pressure 138 mm[Hg] HEAVENLY MELODY [facility] 05-09-2023 16:11-0500 Body height 162.6 cm Keily Marii OPHTHALMIC SURGICAL ASSISTANT Work Phone: [facility] 05-09-2023 16:11-0500 Body mass index (BMI) [Ratio] 26.78 kg/m2 Keily Colvin OPHTHALMIC SURGICAL ASSISTANT Work Phone: [facility] 05-09-2023 16:11-0500 Body temperature 98.01 [degF] Keily Colvin OPHTHALMIC SURGICAL ASSISTANT Work Phone: [facility] 05-09-2023 16:11-0500 Body weight 70.76 kg Keily Mccoyz OPHTHALMIC SURGICAL ASSISTANT Work Phone: [facility] 05-09-2023 16:11-0500 Diastolic blood pressure 78 mm[Hg] Keilylyudmila Meloholz OPHTHALMIC SURGICAL ASSISTANT Work Phone: [facility] 05-09-2023 16:11-0500 Heart rate 85 /min Keilylyudmila Meloholz OPHTHALMIC SURGICAL ASSISTANT Work Phone: [facility] 05-09-2023 16:11-0500 Respiratory rate 17 /min Keily Meloholz OPHTHALMIC SURGICAL ASSISTANT Work Phone: [facility] 05-09-2023 16:11-0500 SaO2% (BldA) [Mass fraction] 100 % Keily Meloholz OPHTHALMIC SURGICAL ASSISTANT Work Phone: [facility] 05-09-2023 16:11-0500 Systolic blood pressure 118 mm[Hg] Keily Mccoyz OPHTHALMIC SURGICAL ASSISTANT Work Phone: [facility] 03-09-2022 15:55-0500 Body height 162.56 cm Dana Synthelis Other [employer] Other 03-09-2022 15:55-0500 Body mass index (BMI) [Ratio] 25.57 kg/m2 Dana Wilson Other [employer] Other 03-09-2022 15:55-0500 Body temperature 97.6 [degF] Dana Wilson Other [employer] Other 03-09-2022 15:55-0500 Body weight 67.59 kg Dana Wilson Other [employer] Other 03-09-2022 15:55-0500 Respiratory rate 18 /min Dana Synthelis Other [employer] Other 03-09-2022 15:64-7716 SaO2% (BldA) [Mass fraction] 97 % Dana Wilson Other [employer] Other Encounters Encounter Date Encounter Type Care Provider Facility Start: 11-01-2024 End: 11-01-2024 Bamboo flowsheet Keily Colvin OPHTHALMIC SURGICAL ASSISTANT Work Phone: [facility] Start: 11-01-2024 End: 11-01-2024 Bamboo flowsheet Keily Colvin OPHTHALMIC SURGICAL ASSISTANT Work Phone: [facility] Start: 11-01-2024 End: 11-01-2024 Patient encounter status Keily Colvin OPHTHALMIC SURGICAL ASSISTANT Work Phone: [facility] Work Phone: Start: 11-01-2024 End: 11-01-2024 Periodic preventive med est patient 40-64yrs Keily Colvin OPHTHALMIC SURGICAL ASSISTANT Work Phone: [facility] Comment on above: Encounter for wellne ss examination in adult (Primary Dx); Lumbar sprain, sequela Start: 11-01-2024 End: 11-01-2024 ambulatory KEILY COLVIN Not Available Start: 09-19-2024 End: 09-19-2024 Office outpatient visit 10 minutes Keily Colvin OPHTHALMIC SURGICAL ASSISTANT Work Phone: [facility] Comment on above: Pain of upper abdome n (Primary Dx); Encounter for screening mammogram for malignant neoplasm of breast Start: 09-19-2024 End: 09-19-2024 ambulatory KEILY MARII Not Available Start: 08-24-2024 End: 08-24-2024 Clinisync Result Encounter Keily Colvin OPHTHALMIC SURGICAL ASSISTANT Work Phone: [facility] Unsolicited Start: 08-24-2024 End: 08-24-2024 Clinisync Result Encounter Keily Colvin OPHTHALMIC SURGICAL ASSISTANT Work Phone: [facility] Unsolicited Start: 08-23-2024 End: 08-23-2024 Bamboo flowsheet Ethel Mccoy Felter LOADER HELPER-SOLID GLASS ROD DOWEL MACHINE OPERATOR Work Phone: [facility] Start: 08-23-2024 End: 08-23-2024 Bamboo flowsheet Ethel Mccoy Felter LOADER HELPER-SOLID [employer] ROD DOWEL MACHINE OPERATOR Work Phone: [facility] Start: 08-23-2024 End: 08-23-2024 Office outpatient visit 25 minutes Ethel Mccoy Felter LOADER HELPER-SOLID [employer]ASS ROD DOWEL MACHINE OPERATOR Work Phone: [facility] Comment on above: Melanocytic nevus of trunk; Lentigines; Callus of foot; Other atopic dermatitis Start: 08-23-2024 End: 08-23-2024 ambulatory ETHEL CRANDALLER Not Available Start: 08-08-2024 End: 08-08-2024 Bamboo flowsheet Keily Marii OPHTHALMIC SURGICAL ASSISTANT Work Phone: [facility] Start: 08-08-2024 End: 08-08-2024 Bamboo flowsheet Keily Aicorquideaz OPHTHALMIC SURGICAL ASSISTANT Work Phone: [facility] Start: 08-08-2024 End: 08-08-2024 Office outpatient visit 15 minutes Keily Marii OPHTHALMIC SURGICAL ASSISTANT Work Phone: [facility] Comment on above: Pain of upper abdome n (Primary Dx) Start: 08-08-2024 End: 08-08-2024 ambulatory KEILY MARII Not Available Start: 05-28-2024 End: 05-28-2024 ambulatory [facility] Start: 05-09-2024 End: 05-09-2024 Telephone encounter Ashlyn Joe LPN [facility] Start: 05-09-2024 End: 05-09-2024 ambulatory [facility] SP[facility] Start: 05-09-2024 End: 05-09-2024 Office outpatient new 45 minutes Ynes Spivey DO Work Phone: [facility] Comment on above: 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); Enlarged lymph nodes; Mood change; Perimenopause; Irregular menses; Weight gain; Family history of cancer in grandfather; Family history of uterine cancer; Family history of prostate cancer; Family history of colon cancer Start: 05-09-2024 End: 05-09-2024 ambulatory [facility] Start: 04-16-2024 End: 04-16-2024 Bamboo flowsheet Keily Colvin OPHTHALMIC SURGICAL ASSISTANT Work Phone: [facility] Start: 04-16-2024 End: 04-16-2024 Bamboo flowsheet Keily Colvin OPHTHALMIC SURGICAL ASSISTANT Work Phone: [facility] Start: 04-16-2024 End: 04-16-2024 Office outpatient new 45 minutes Keily Colvin OPHTHALMIC SURGICAL ASSISTANT Work Phone: [facility] Comment on above: 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); Eczema, unspecified type Start: 04-16-2024 End: 04-16-2024 ambulatory KEILY COLVIN Not Available Start: 03-12-2024 End: 03-12-2024 ambulatory Cindy Sánchez [place] [place]: 03-12-2024 End: 03-12-2024 Patient encounter procedure Cindy Sánchez [facility] Start: 12-01-2023 End: 12-01-2023 ambulatory HEAVENLY OLIVER [place] [place]: 12-01-2023 End: 12-01-2023 Lab Drop off HEAVENLY OLIVER [facility] Start: 12-01-2023 End: 12-01-2023 ambulatory HEAVENLY OLIVER Facility: [facility] Start: 12-01-2023 End: 12-01-2023 Patient encounter procedure HEAVENLY OLIVER [facility] Start: 10-31-2023 Patient encounter status Keily Colvin OPHTHALMIC SURGICAL ASSISTANT Work Phone: [facility] Start: 10-26-2023 ambulatory [facility]IVER [facility] Start: 05-09-2023 End: 05-09-2023 Office outpatient visit 15 minutes Keily Colvin OPHTHALMIC SURGICAL ASSISTANT Work Phone: [facility] Comment on above: URI, acute (Primary Dx) Start: 05-09-2023 Bamboo flowsheet Keily Colvin OPHTHALMIC SURGICAL ASSISTANT Work Phone: [facility] Start: 05-09-2023 Bamboo flowsheet Keily Colvin OPHTHALMIC SURGICAL ASSISTANT Work Phone: [facility] Start: 05-05-2022 End: 05-05-[address] NEFTALI WILSON Facility: Start: 03-09-2022 End: 03-09-2022 ambulatory Dana Wilson Other [employer] Other Start: 03-09-2022 Office outpatient ne w 30 minutes Dana Wilson [facility] Procedures Date Procedure Procedure Detail Performing Clinician Start: 08-24-2024 US ABDOMEN LIMITED Keily Colvin OPHTHALMIC SURGICAL ASSISTANT Work Phone: Start: 11-07-2023 Mammography Keily Colvin OPHTHALMIC SURGICAL ASSISTANT Work Phone: Start: 05-09-2023 Microscopic observation [Identifier] in Cervix by Cyto stain Keily Colvin OPHTHALMIC SURGICAL ASSISTANT Work Phone: Start: 06-30-2020 H/O: surgery S/P nasal septoplasty Ynes Spivey DO Work Phone: Start: 06-30-2020 History of tonsillectomy S/P tonsillectomy Ynes Spivey DO Work Phone: Tonsillectomy HEAVENLY OLIVER Plan of Treatment Date Care Activity Detail Author Start: 05-09-2026 Screening for malign ant neoplasm of cervix [facility] Start: 11-04-2025 End: 11-04-2025 Patient encounter procedure 11/04/2025 9:00 AM EDT Office Visit [facility] [address] [place] [address] Keily Colvin, OPHTHALMIC SURGICAL ASSISTANT [address] [place] [address] [facility] Start: 08-22-2025 End: 08-22-2025 Patient encounter procedure [facility] Start: 05-09-2025 Adult BMI Screening Adult BMI Screen ing [facility] Start: 05-09-2025 Tobacco Screening Tobacco Screening [facility] Start: 11-12-2024 End: 11-19-2025 MG Breast - bilateral Screening Bilateral screening mammogram Imaging Routine Encounter for screening mammogram for malignant neoplasm of breast Expected: 11/12/2024 (Approximate), Expires: 11/19/2025 [facility] Work Phone: Comment on above: Expected: 11/12/2024 (Approximate), Expires: 11/19/2025 Start: 11-06-2024 Screening for malign ant neoplasm of breast Mammogram [facility] Start: 11-01-2024 End: 11-01-2025 CBC W Auto Differential panel - Blood CBC and differential Lab Routine Encounter for wellness examination in adult Expected: 11/01/2024 (Approximate), Expires: 11/01/2025 [facility] Work Phone: Comment on above: Expected: 11/01/2024 (Approximate), Expires: 11/01/2025 Start: 11-01-2024 End: 11-01-2025 Comprehensive metabolic 2000 panel - Serum or Plasma Comprehensive metabolic panel Lab Routine Encounter for wellness examination in adult Expected: 11/01/2024 (Approximate), Expires: 11/01/2025 [facility] Comment on above: Expected: 11/01/2024 (Approximate), Expires: 11/01/2025 Start: 11-01-2024 End: 11-01-2025 Lipid 1996 panel - Serum or Plasma Lipid panel Lab Routine Encounter for wellness examination in adult Expected: 11/01/2024 (Approximate), Expires: 11/01/2025 [facility] Comment on above: Expected: 11/01/2024 (Approximate), Expires: 11/01/2025 Start: 11-01-2024 End: 11-01-2025 Thyrotropin [Units/volume] in Serum or Plasma TSH Lab Routine Encounter for wellness examination in adult Expected: 11/01/2024 (Approximate), Expires: 11/01/2025 [facility] Comment on above: Expected: 11/01/2024 (Approximate), Expires: 11/01/2025 Start: 11-01-2024 End: 11-01-2025 Urinalysis complete panel - Urine Urinalysis with reflex microscopic (clean catch) Lab Routine Encounter for wellness examination in adult Expected: 11/01/2024 (Approximate), Expires: 11/01/2025 [facility] Comment on above: Expected: 11/01/2024 (Approximate), Expires: 11/01/2025 Start: 11-01-2024 End: 11-01-2024 Patient encounter procedure [facility] Comment on above: Encounter for wellne ss examination in adult (Primary Dx) Start: 09-19-2024 End: 09-19-2024 Patient encounter procedure 09/19/2024 9:00 AM EDT Office Visit [facility] [address] [place] [address] Keily Colvin NP [address] [place] [address] [facility] Start: 08-23-2024 End: 08-23-2024 Patient encounter procedure [facility] Comment on above: Arrived Start: 08-08-2024 End: 08-08-2024 Patient encounter procedure 08/08/2024 2:00 PM EDT Office Visit [facility] [address] [place] [address] Keily Colvni NP [address] [place] [address] Arrived [facility] Comment on above: Arrived Start: 08-08-2024 End: 08-08-2025 US Abdomen limited US abdomen limited Imaging Routine Pain of upper abdomen Expected: 08/08/2024, Expires: 08/08/2025 [facility] Work Phone: Comment on above: Expected: 08/08/2024 , Expires: 08/08/2025 Start: 07-26-2024 End: 07-26-2024 Patient encounter procedure 07/26/2024 8:35 AM EDT Office Visit [facility] [address] [place] [address] Ethel Corona, LOADER HELPER-SOLID GLASS ROD DOWEL MACHINE OPERATOR [address] [place] [address] [facility] Start: 06-01-2024 End: 06-01-2024 Patient encounter procedure 06/01/2024 8:00 AM EST Appointment [facility] [address] [place] [address] Ynes Spivey, DO Critical access hospital [place], [place] [id number] [facility] Start: 05-09-2024 End: 05-09-2025 CT Pelvis W contrast IV CT pelvis with contrast Imaging Routine 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 Enlarged lymph nodes Expected: 05/09/2024, Expires: 05/09/2025 [facility] Work Phone: Comment on above: Expected: 05/09/2024 , Expires: 05/09/2025 Start: 05-09-2024 End: 05-09-2024 Patient encounter procedure 05/09/2024 10:30 AM EST Appointment [facility] [address] [place] [address] [facility] Start: 04-16-2024 End: 04-16-2024 Patient encounter procedure 04/16/2024 10:30 AM EST Office Visit [facility] [address] [place] [address] Keily Colvin, OPHTHALMIC SURGICAL ASSISTANT [address] [place] [phone] [facility] Comment on above: Arrived Start: 11-27-2023 COVID-19 Vaccine ( season) COVID-19 Vaccine () [facility] Start: 11-27-2023 Influenza vaccination Influenza Vacc ine [facility] Start: 05-09-2023 End: 05-09-2023 Patient encounter procedure 05/09/2023 4:00 PM EST [facility] [address] [place] [address] Keily Colvin, OPHTHALMIC SURGICAL ASSISTANT [address] [place] [phone] [facility] Comment on above: Arrived Start: 11-26-2022 Influenza vaccination Influenza Vacc ine (#1) [facility] Start: 10-29-2013 Screening for malign ant neoplasm of cervix [facility] Start: 10-29-2004 Screening for malign ant neoplasm of cervix Pap Smear [facility] Start: 10-29-2002 DTaP,Tdap and Td Vaccines (1 - Tdap) DTaP,Tdap and Td Vaccines (1 - Tdap) [facility] Start: 10-29-2001 Adult BMI Follow Up Plan Adult BMI Follow Up Plan [facility] Start: 1995 Depression Screening Depression Scre ening [facility] End: 05-09-2025 CBC W Auto Differential panel - Blood CBC auto differential Lab Routine 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 Enlarged lymph nodes 1 Occurrences starting 05/09/2024 until 05/09/2025 [facility] Comment on above: 1 Occurrences starti ng 05/09/2024 until 05/09/2025 End: 05-09-2025 Estradiol Estradiol Lab Routine Mood change Perimenopause Irregular menses Weight gain 1 Occurrences starting 05/09/2024 until 05/09/2025 [facility] Comment on above: 1 Occurrences starti ng 05/09/2024 until 05/09/2025 End: 05-09-2025 Follicle stimulating hormone Follicle stimulating hormone Lab Routine Mood change Perimenopause Irregular menses Weight gain 1 Occurrences starting 05/09/2024 until 05/09/2025 [facility] Comment on above: 1 Occurrences starti ng 05/09/2024 until 05/09/2025 End: 05-09-2025 Luteinizing hormone Luteinizing hormone Lab Routine Mood change Perimenopause Irregular menses Weight gain 1 Occurrences starting 05/09/2024 until 05/09/[facility]: 1 Occurrences starti ng 05/09/2024 until 05/09/2025 End: 05-09-2025 Progesterone Progesterone Lab Routine Mood change Perimenopause Irregular menses Weight gain 1 Occurrences starting 05/09/2024 until 05/09/20[facility] Comment on above: 1 Occurrences starti ng 05/09/2024 until 05/09/2025 End: 05-09-2025 Prolactin Prolactin Lab Routine Mood change Perimenopause Irregular menses Weight gain 1 Occurrences starting 05/09/2024 until 05/09/20[facility] Comment on above: 1 Occurrences starti ng 05/09/2024 until 05/09/2025 End: 05-09-2025 Testosterone [Mass/volume] in Serum or Plasma Testosterone Lab Routine Mood change Perimenopause Irregular menses Weight gain 1 Occurrences starting 05/09/2024 until 05/09/20[facility] Comment on above: 1 Occurrences starti ng 05/09/2024 until 05/09/2025 End: 05-09-2025 Thyroid profile includes TSH FT4 Thyroid profile includes TSH FT4 Lab Routine Mood change Perimenopause Irregular menses Weight gain 1 Occurrences starting 05/09/2024 until 05/09/20[facility] Comment on above: 1 Occurrences starti ng 05/09/2024 until 05/09/2025 Immunizations Immunization Date Immunization Notes Care Provider Saleem coronel 09-05-2020 SARS-CoV-2 (COVID-19 ) mRNA-1273 vaccine HEAVENLY OLIVER [facility] 08-08-2020 SARS-CoV-2 (COVID-19 ) mRNA-1273 vaccine HEAVENLY OLIVER [facility] 01-28-2015 influenza, seasonal, injectable Dana Wilson Other [employer] Other 01-28-2015 influenza virus vaccine, unspecified formulation Keily Colvin OPHTHALMIC SURGICAL ASSISTANT Work Phone: [facility] NEGATED: Highlighted row has not occurred!06-04-2015 pneumococcal polysaccharide vaccine, 23 valent Dana Wilson Other [employer] Other Payers Date Payer Category Payer Medicaid [employer] [place] [employer] [id number] 2020-Present [address] [place] [id number] [id number] 2020 Medicaid (Managed Care) [facility] MEDICAID [id number] 2020 Medicaid HMO [employer] [id number] 1983 Unknown [id number]. 593 1983 Unknown [id number] 2.16.840.1.826808.3.579.2. 727 1983 Unknown [id number] 2.16840.1.754547.3.579.2. 727 1983 Unknown [id number] 2.16.840.1.467835.3.579.2. 727 1983 Unknown [id number] 2.16.840.1.150779.3.579.2. 1286 1983 Unknown [id number] 2.16.840.1.861830.3.579.2. 1286 1983 Unknown [id number] 2.16.840.1.423429.3.579.2. 1286 1983 Unknown [id number] 2.16.840.1.289155.3.579.2. 1259 1983 Unknown [id number] 2.16.840.1.798707.3.579.2. 9 1983 Unknown [id number] 2.16.840.1.792804.3.579.2. 1259 1983 Unknown [id number] 2.16.840.1.521544.3.579.2. 9 1983 Unknown [id number] 2.16.840.1.760942.3.579.2. 1259 1959 Unknown [id number] Social History Date Type Detail Facility Start: 05-09-2023 End: 06-16-2023 Sex Assigned At [facility] [employer] Other Tobacco smoking status IAIS Tobacco smoking consumption unknown [facility] Start: 1985 Sex Assigned At Not on file [facility] Start: 05-09-2023 End: 05-09-2024 Tobacco smoking status IAIS Never smoked tobacco [facility] Start: 05-09-2023 End: 05-09-2024 Tobacco use and exposure Smokeless tobacco non-user [facility] Start: 05-09-2023 End: 11-01-2024 Alcohol intake Lifetime non-drinker (finding) [facility] Start: 05-09-2023 End: 06-16-2023 History of Social function [facility] Start: 05-09-2023 Alcohol Comment caffine: 1 can of soda daily [facility] Tobacco smoking status Never [facility] Start: 10-31-2014 Sex Female (finding) [facility] Functional Status Date Assessment Result Facility 03-12-2024 Functional Status N/A [facility] 12-01-2023 Functional Status N/A [facility] Clinical Notes 03-09-2022 to 11-01-2024 Keily Colvin NP - 11/01/2024 10:34 AM OSCAR MEZA - 11/01/2024 10:00 AM Raimundo Colvin NP - 11/01/2024 10:00 AM Raimundo Colvin NP - 11/01/2024 6:19 AM EDTPatient Instructions Note Date & Type Note Facility 11-01-2024 History of Presen t illness Narrative Associated Problem(s): Lumbar back sprain Will refill her tizanidine, discussed pt for core strengthening, she I did provide a hand out for back stretching exercises to reduce risk of exacerbations in the future Muscle relaxer refill Images from the original note were not included. Louis Steven is a 39 y.o. female presents with chief complaint of Annual Exam HPI: Diet:variety Activity: no aerobic Mental Health Concerns: anxiety, no depression Any hearing problems:no Any Vision problems: no Any Hospitalizations in the last year:no Specialist:[employer]ISH[employer] Concerns: would like muscle relaxer for her back pain SUBJECTIVE: MEDICATIONS: Current Outpatient Medications Medication Instructions tiZANidine (ZANAFLEX) 4 mg, Oral, Nightly PRN triamcinolone (Kenalog) 0.1 % cream Apply to eczema on arms BID when flared, hold when clear/30 days. Do not use on the face, neck, armpits or groin ALLERGIES: No Known Allergies REVIEW OF SYMPTOMS: [...] for difficulty urinating, dysuria and frequency. Musculoskeletal: Positive for back pain. Negative for arthralgias, joint swelling and myalgias. Skin: Negative for rash and wound. Neurological: Negative for dizziness, tremors, seizures, syncope and headaches. Psychiatric/Behavioral: Negative for behavioral problems, self-injury and suicidal ideas. The patient is nervous/anxious. Hematological: Does not bruise/bleed easily. Endocrine: Negative for polydipsia, polyphagia and polyuria. Allergic/Immunologic: Negative for environmental allergies and food allergies. PAST MEDICAL HISTORY History reviewed. No pertinent past medical history. Past Surgical History: Procedure Laterality Date TONSILECTOMY, ADENOIDECTOMY, BILATERAL MYRINGOTOMY AND TUBES family history is not on file. OBJECTIVE: Visit Vitals BP 118/80 (BP Location: Left arm, Patient Position: Sitting, BP Cuff Size: Adult long) Pulse 77 Temp 97.8 F (Temporal) Wt 162 lb 12.8 oz SpO2 98% BMI 27.94 kg/m Smoking Status Never BSA 1.83 m Physical Exam Vitals and nursing note reviewed. Constitutional: General: She is not in acute distress. Appearance: Normal appearance. HENT: Head: Normocephalic and atraumatic. Right Ear: External ear normal. Left Ear: External ear normal. Nose: Nose normal. Mouth/Throat: Mouth: Mucous membranes are moist. Eyes: Extraocular Movements: Extraocular movements intact. Conjunctiva/sclera: Conjunctivae normal. Neck: Vascular: No carotid bruit. Cardiovascular: Rate and Rhythm: Normal rate and regular rhythm. Pulses: Normal pulses. Heart sounds: Normal heart sounds. No murmur heard. Pulmonary: Effort: Pulmonary effort is normal. Breath sounds: Normal breath sounds. No wheezing or rhonchi. Abdominal: General: Bowel sounds are normal. There is no distension. Palpations: Abdomen is soft. There is no mass. Tenderness: There is no abdominal tenderness. Musculoskeletal: General: Normal range of motion. Cervical back: Normal range of motion and neck supple. Right lower leg: No edema. Left lower leg: No edema. Comments: DTR's 2+ bilat patellar/achilles MMT 5/5 bilat LE Lymphadenopathy: Cervical: No cervical adenopathy. Skin: General: Skin is warm and dry. Capillary Refill: Capillary refill takes 2 to 3 seconds. Findings: No rash. Neurological: General: No focal deficit present. Mental Status: She is alert and oriented to person, place, and time. Psychiatric: Mood and Affect: Mood normal. Behavior: Behavior normal. Thought Content: Thought content normal. Judgment: Judgment normal. ASSESSMENT AND PLAN: Follow up in about 1 year (around 11/01/2025). Problem List Items Addressed This Visit Lumbar back sprain Will refill her tizanidine, discussed pt for core strengthening, she I did provide a hand out for back stretching exercises to reduce risk of exacerbations in the future Relevant Medications tiZANidine (Zanaflex) 4 MG tablet Encounter for wellness examination in adult - Primary Reviewed Ht/Wt/BMI Recommend eye exam yearly Recommend dental exams twice a year Balance work/leisure activities Exercises is recommended most days of the week (appropriate as chronic conditions allow) Follow up yearly and prn Relevant Orders CBC and differential Comprehensive metabolic panel Lipid panel Urinalysis with reflex microscopic (clean catch) TSH Associated Problem(s): Encounter for wellness examination in adult Reviewed Ht/Wt/BMI Recommend eye exam yearly Recommend dental exams twice a year Balance work/leisure activities Exercises is recommended most days of the week (appropriate as chronic conditions allow) Follow up yearly and prn documented in this encounter [facility] 09-19-2024 History of Presen t illness Narrative Associated Problem(s): Pain of upper abdomen Resolved Images from the original note were not included. Louis Steven is a 38 y.o. female presents with chief complaint of No chief complaint on file. HPI: Here for fu abd pain: no pain, no NV no tenderness Also changed her eating, stopped drinking pop, and eating healthier, feels fine SUBJECTIVE: MEDICATIONS: Current Outpatient Medications Medication Instructions triamcinolone (Kenalog) 0.1 % cream Apply to eczema on arms BID when flared, hold when clear/30 days. Do not use on the face, neck, armpits or groin ALLERGIES: No Known Allergies REVIEW OF SYMPTOMS: [...] not on file. OBJECTIVE: Visit Vitals BP 110/82 (BP Location: Left arm, Patient Position: Sitting, BP Cuff Size: Adult long) Pulse 89 Temp 97.8 F (Temporal) Resp 18 Wt 162 lb 12.8 oz SpO2 96% BMI 27.94 kg/m Smoking Status Never BSA 1.83 m Physical Exam Vitals and nursing note [...] is normal. Breath sounds: Normal breath sounds. Abdominal: General: Bowel sounds are normal. There is no distension. Palpations: Abdomen is soft. There is no mass. Tenderness: There is no abdominal tenderness. Musculoskeletal: General: Normal range of motion. Cervical back: Normal range of motion and neck supple. Skin: General: Skin is warm and dry. [...] file. Problem List Items Addressed This Visit Encounter for screening mammogram for malignant neoplasm of breast Relevant Orders Bilateral screening mammogram Pain of upper abdomen - Primary Resolved documented in this encounter [facility] 08-23-2024 History of Presen t illness Narrative [...] Visit: 1 year documented in this encounter [facility] 08-08-2024 History of Presen t illness Narrative [...] US abdomen limited documented in this encounter [facility] 08-08-2024 Instructions Keily Colvin NP - 08/08/2024 2:00 PM EDT Will fax order to [facility] [phone], ext [phone] Call them if no call in 10 days documented in this encounter [facility] 05-09-2024 Miscellaneous Notes Pt called stating she has her CT W/contrast scheduled on June 01. Pt states the last time she had contrast back in 2018 she was nausea and dizzy after the test. Pt is inquiring about taking a prep before the CT scan to help prevent that. Please advise. documented in this encounter [facility] 05-09-2024 Telephone encounter Note Pt called stating she has her CT W/contrast scheduled on June 01. Pt states the last time she had contrast back in 2018 she was nausea and dizzy after the test. Pt is inquiring about taking a prep before the CT scan to help prevent that. Please advise. 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 It does itch. [place] sore and raw feeling for the first couple days as the days progressed the spot got larger and pain stopped and started itching. Pt used ring worm cream and Cortizone cream both did not work. Images from the original note were not included. Lousi Steven is a 38 y.o. female presents [...] nursing note reviewed. Exam conducted with a primary care coordinator present. Constitutional: General: She is not in [...] infection or ulceration We will refer to Scheduling Analyst for evaluation of this This does not appear to represent an obvious malignancy of which I did share with the pt Relevant Orders Ambulatory referral to Obstetrics / Gynecology Eczema Warm, not hot bath May use OTC cortisone cream as directed Fu if not better documented in this encounter [facility] 04-16-2024 Instructions Keily Colvin NP - 04/16/2024 10:30 AM EST Refer to [employer], they should call you documented in this encounter [facility] 03-12-2024 Hospital Discharg e instructions Patient Education [...] Address:Unknown When: Unknown Comments:Call for any problems. [facility] 03-12-2024 Note Patient Education Cystoscopy ??? Voiding [...] you have a fever over 100 degrees. [facility] 12-01-2023 Evaluation + Plan note Diagnostic Tests PendingUrine Cytology ([facility]) 12/01/23 [facility] 12-01-2023 Hospital Discharg e instructions Patient Education [...] Follow these instructions at home: Medicines Take jkzf-nhk-tvobqjc and prescription medicines only as told by [...] or the blood stops without treatment. Take wajs-whd-jwmsoxr and prescription medicines only as told by your health care provider. Drink enough fluid to keep your urine pale yellow. This information is not intended to replace advice given to you by your health care provider. Make sure you discuss any questions you have with your health care provider. Document Revised: 11/12/2020 Document Reviewed: 11/12/2020 Elsevier Patient Education 2023 [employer]. 12/01/2023 10:44:23 Kidney Stones, Gmts-kh-Gkzh Kidney Stones Kidney stones are rock-like masses [...] Follow these instructions at home: Medicines Take actd-pkv-nkpuvbf and prescription medicines only as told by [...] provider. Document Revised: 11/05/2022 Document Reviewed: 11/05/2022 [employer] Patient Education 2023 [employer] Follow Up Care 10/26/2023 14:24:32 With:[facility] Bridget Address: [address] 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 Take jrsw-nqm-pvejjxz and prescription medicines only as told by [...] the blood stops without treatment. ? Take eeor-npi-hqfwnnr and prescription medicines only as told by your health care provider. ? Drink enough fluid to keep your urine pale yellow. This information is not intended to replace advice given to you by your health care provider. Make sure you discuss any questions you have with your health care provider. Document Revised: 11/12/2020 Document Reviewed: 11/12/2020 [employer] Patient Education ? 2023 [employer]. Kidney Stones Kidney stones are rock-like masses [...] salt (sodium), or (more content not included)... [facility] 05-09-2023 History of Presen t illness Narrative [...] 875-125 MG tablet documented in this encounter [facility] 03-09-2022 Evaluation note Encounter Date Diagnosis Assessment [...] treatment plan. Patient left in stable condition [employer] Other Evaluation + Plan note No data available for this section [facility] evaluation note* Diagnosis URI, acute- Primary Acute upper respiratory infections of unspecified site [facility] Diagnosis Acute cystitis without hematuria- Primary Participant in health and wellness plan Lumbar sprain, sequela Encounter for wellness examination in adult- Primary Encounter for screening mammogram for malignant neoplasm of breast Hematuria, microscopic Microscopic hematuria Nephrolithiasis Calculus of kidney 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 Eczema, unspecified type [facility] Diagnosis Neoplasm of uncertain behavior [...] of gastrointestinal tract [facility] Diagnosis Acute cystitis without hematuria- [...] atopic dermatitis [facility] Diagnosis Acute cystitis without hematuria- Primary Participant in health and wellness plan Lumbar sprain, sequela Encounter for wellness examination in adult- Primary Encounter for screening mammogram for malignant neoplasm of breast Hematuria, microscopic Microscopic hematuria Nephrolithiasis Calculus of kidney 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 Eczema, unspecified type Pain of upper abdomen- Primary Pain of upper abdomen- Primary Encounter for screening mammogram for malignant neoplasm of breast [facility] Diagnosis Acute cystitis without hematuria- Primary Participant in health and wellness plan Lumbar sprain, sequela Encounter for wellness examination in adult- Primary Encounter for screening mammogram for malignant neoplasm of breast Hematuria, microscopic Microscopic hematuria Nephrolithiasis Calculus of kidney 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 Eczema, unspecified type Pain of upper abdomen- Primary Pain of upper abdomen- Primary Encounter for screening mammogram for malignant neoplasm of breast Encounter for wellness examination in adult- Primary Lumbar sprain, sequela [facility] N[facility] - Reported* Type Description Date Medical History Back Pain Medical History Eczema Surgical History wisdom teeth Surgical History tonsillectomy Surgical History septoplasty with turbinate redu Xormision [employer] Other Hospital Discharge instructions No data available for this section [facility] Instructions* Attachments The following attachments cannot be sent through Care Everywhere. * Genetic testing for breast? ovarian? prostate? and pancreatic cancer ([place]) * CT Scan, Abdomen/Pelvis ([place]) * Swollen lymph nodes in adults ([place]) * Perimenopause ([place]) [facility]Not on file documented in this [facility] SystemProgress note No data available for this section [facility] Summary Purpose Family History No Family History [...] and content) DATE CREATED AUTHOR 05/06/2022 [facility] DATE CREATED AUTHOR AUTHOR'S ORGANIZ ATION 12/06/2023 [facility] DATE CREATED AUTHOR AUTHOR'S ORGANIZ ATION 03/17/2024 Kwesi Murcia [facility] DATE CREATED AUTHOR AUTHOR'S ORGANIZ ATION 05/11/2024 [facility] DATE CREATED AUTHOR AUTHOR'S ORGANIZ ATION 05/30/2024 [facility] DATE CREATED AUTHOR AUTHOR'S ORGANIZ ATION 11/03/2024 [facility] dical Specialists EPIC REASON FOR VISIT (unrecogniz ed section and content) Reason Comments Mass Lump in groin area Reason Comments Labial Lumps Right labial lumps. Noticed about 6 weeks ago. 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 Procedures [place] OFFICE OUTPATIENT VISIT 60-74 MINS HIGH MDM [id number] (SNOMED CT) - AMB REFERRAL TO OB-[employer] Keily Colvin, LOADER HELPER-[employer]ID [employer] ROD DOWEL MACHINE OPERATOR [address] [place] [address] Phone: tel: fax: Keily Webber, LOADER HELPER-[employer] DOWEL MACHINE OPERATOR [address] [place] [address] Phone: tel: fax: Referral ID Status Reason Start Date Expiration Date V isits Requested Visits Authorized [id number] Pending Review 04/16/2024 10/13/2024 1 1 Reason Comments GI Problem Reason Comments Skin Check Reason Comments Annual Exam Care Teams (unrecognized sec tion and content) Rat Breeder Relationship Specialty Start Date End Date Landry Antoine MD [address] [place] [phone] PCP - General Family Medicine 05/09/23 Keily Colvin NP [address] [place] [address] Referring Physician Nurse Practitioner 10/18/22 Rat Breeder Relationship Specialty Start Date End Date Landry Antoine MD [address] [place] [address] PCP - General Family [facility] 05/09/23 Keily Colvin NP [address] [place] [address] Referring Physician Nurse Practitioner 10/18/22 Rat Breeder Relationship Specialty Start Date End Date Landry Antoine MD [address] [place] [address] PCP - [facility] 05/09/23 Keily Colvin NP [address] [place] [phone] PCP - [facility] 09/26/23 Keily Colvin NP Referring Physician Nurse Practitioner 10/18/22 Rat Breeder Relationship Specialty Start Date End Date Landry Antoine MD [address] [place] [address] PCP - [facility] 05/09/23 Keily Colvin NP [address] [place] [address] PCP - [facility] 09/26/23 Keily Colvin NP Referring Physician Nurse Practitioner 10/18/22 Rat Breeder Relationship Specialty Start Date End Date Keily Colvin, LOADER HELPER-[employer] ROD DOWEL MACHINE OPERATOR PCP - General Nurse Practitioner 08/14/18 Rat Breeder Relationship Specialty Start Date End Date Keily Colvin, LOADER HELPER-[employer] R[employer] DOWEL MACHINE OPERATOR PCP - General Nurse Practitioner 08/14/18 Rat Breeder Relationship Specialty Start Date End Date Landry Antoine MD [address] [place] [phone] PCP - General Family [facility] 05/09/23 Keily Colvin NP [address] [place] [phone] PCP - [facility] 09/26/23 Keily Colvin NP Referring Physician Nurse Practitioner 10/18/22 Rat Breeder Relationship Specialty Start Date End Date Landry Antoine MD [address] [place] [phone] PCP - [facility] 05/09/23 Keily Colvin NP [address] [place] [phone] PCP - [facility] 09/26/23 Keily Colvin NP Referring Physician Nurse Practitioner 10/18/22 Rat Breeder Relationship Specialty Start Date End Date Landry Antoine MD [address] [place] [phone] PCP - [facility] 05/09/23 Keily Colvin NP [address] [place] [phone] PCP - [facility] 09/26/23 Kiely Colvin NP Referring Physician Nurse Practitioner 10/18/22 Rat Breeder Relationship Specialty Start Date End Date Landry Antione MD [address] [place] [phone] PCP - [facility] 05/09/23 Keily Colvin NP [address] [place] [phone] [facility] 09/26/23 Keily Colvin NP Referring Physician Nurse Practitioner 10/18/22 Rat Breeder Relationship Specialty Start Date End Date Landry Antoine MD [address] [place] [phone] PCP - [facility] 05/09/23 Keily Colvin NP [address] [place] [phone] PCP - [facility] 09/26/23 Keily Colvin NP Referring Physician Nurse Practitioner 10/18/22 Rat Breeder Relationship Specialty Start Date End Date Landry Antoine MD [address] [place] [address] PCP - General [facility] 05/09/23 Keily Colvin NP [address] [place] [phone] PCP - [facility] 09/26/23 Keily Colvin NP Referring [...] BE BASED ON THE PRIMARY CLINICAL RECORDS. [employer] provides no warranty or guarantee of the accuracy or completeness of information in this document.
[2024-11-14 07:20] LABS: Hematocrit 40.5 % (36.0-48.0); Hemoglobin 13.8 g/dL (12.0-16.0); Immature Granulocytes Abs Auto 0.02 10^3/uL (0.00-0.03); Immature Granulocytes Pct Auto 0.3 % (0.0-0.5); Lymphocytes Absolute Auto 2.0 10^3/uL (1.2-3.8); Mean Corpuscular HGB Conc 34.1 g/dL (29.9-35.2); Mean Corpuscular Hemoglobin 31.9 pg (26.7-34.0); Mean Corpuscular Volume 93.8 fL (81.0-99.0); Platelet Count 375 10^3/uL (150-450); Red Blood Count 4.32 10^6/uL (4.20-5.40); White Blood Count 6.4 10^3/uL (4.0-11.0)
[2024-11-14 09:24] LABS: Alanine Aminotransferase 19 U/L (14-59); Albumin Globulin Ratio 1.1; Albumin Level 4.1 g/dL (3.4-5.0); Alkaline Phosphatase 71 U/L (46-116); Anion Gap 9.5; Aspartate Amino Transferase 16 U/L (15-37); Blood Urea Nitrogen 17.0 mg/dL (7.0-18.0); Calcium 9.4 mg/dL (8.5-10.1); Carbon Dioxide 29.3 mmol/L (21.0-32.0); Chloride 104 mmol/L (98-107); Cholesterol 228 mg/dL (<=200); Estimated GFR (African America >60 (>=60 mL/min/1.73m^2); Estimated GFR (Non-African Ame >60 (>=60 mL/min/1.73m^2); Globulin 3.9 g/dL; Glucose 93 mg/dL (74-106); HDL Cholesterol 61 mg/dL (40-60); Potassium 3.8 mmol/L (3.5-5.1); Sodium 139 mmol/L (136-145); Thyroid Stimulating Hormone 1.384 uIU/mL (0.358-3.740); Total Protein 8.0 g/dL (6.4-8.2); Triglycerides 67 mg/dL (<=150); VLDL CHOLESTEROL 13.4 mg/dL
[2024-11-14 09:24] LABS: Glucose Urine UA NEGATIVE (NEGATIVE)
[2024-11-14 10:10] LABS: Cast Seen? NONE SEEN #/LPF (NONE SEEN); Crystals Seen? None Seen #/HPF (None Seen)
== END 2024-11-14 06:53 | disposition home or self-care (01) ==
LOC: MAMMO 06:52
PROVIDERS: PCP Nurse Practitioner; Visit Provider Nurse Practitioner
DX: Z00.00 Encounter for general adult medical examination without abnormal findings (principal); Z12.31 Encounter for screening mammogram for malignant neoplasm of breast; Z80.3 Family history of malignant neoplasm of breast; Z80.0 Family history of malignant neoplasm of digestive organs; Z80.42 Family history of malignant neoplasm of prostate
CPT/HCPCS: 77063; 77067; 80053; 80061; 81001; 84443; 85025